=== PATIENT | male | born 1950 | race Caucasian/White ===

== ENCOUNTER 2020-05-14 08:11 | Observation (INO) ==
--- NOTE | 2020-05-06 15:00 | PAT Medication Instructions ---
Medication Instructions Date of Service May 06, 2020 Home Medications albuterol 90 mcg INHALATION UD PRN alprazolam 0.5 mg PO HS aspirin [Aspir-Low] 81 mg PO QAM cholecalciferol (vitamin D3) [Vitamin D3] 25 mcg PO QAM diphenhydramine HCl [Sleep Aid (diphenhydramine)] 50 mg PO HS famotidine 20 mg PO HS fish,bora,flax oils-om3,6,9no1 [[place] 3-6-9] 1 cap PO DAILY garlic 500 mg PO DAILY glucosamine HCl 1,500 mg PO DAILY hydrochlorothiazide 12.5 mg PO QAM losartan 50 mg PO QAM melatonin 5 mg PO HS meloxicam 15 mg PO QAM montelukast 10 mg PO QAM potassium 99 mg PO QAM turmeric 500 mg PO DAILY ASK your surgeon for instructions meloxicam 15 mg PO QAM STOP taking 2 weeks before surgery If surgery is within 2 weeks, stop taking as soon as possible. fish,bora,flax oils-om3,6,9no1 [[place] 3-6-9] 1 cap PO DAILY garlic 500 mg PO DAILY glucosamine HCl 1,500 mg PO DAILY turmeric 500 mg PO DAILY DO NOT take the morning of surgery cholecalciferol (vitamin D3) 25 mcg PO QAM hydrochlorothiazide 12.5 mg PO QAM losartan 50 mg PO QAM montelukast 10 mg PO QAM potassium 99 mg PO QAM Take morning of surgery With a small sip of water, OTHERWISE NOTHING TO EAT OR DRINK AFTER MIDNIGHT: albuterol 90 mcg INHALATION UD PRN (if needed, and please bring with you to the hospital) aspirin [Aspir-Low] 81 mg PO QAM Take evening before surgery albuterol 90 mcg INHALATION UD PRN (if needed) alprazolam 0.5 mg PO HS diphenhydramine HCl [Sleep Aid (diphenhydramine)] 50 mg PO HS famotidine 20 mg PO HS melatonin 5 mg PO HS Other Notes If you have any questions please call us at [phone] or [phone] or [phone] or [phone]
--- NOTE | 2020-05-07 10:35 | Anesthesiology Consultation ---
Date of Service May 07, 2020 Assessment & Plan (1) Encounter for pre-operative examination: COVID Status: As of 05/07 assessment, patient denies travel to endemic area, known exposure/sick contacts, or symptoms of COVID19. Patient instructed that they and their household members must follow strict social distancing guidelines, wear a mask in public and avoid travel for 14 days prior to surgery. Preoperative COVID19 testing to be completed prior to surgery per surgeon's arra ngpee [place] [facility] [place] Patient made aware to self-isolate as much as possible between COVID testing and surgery. Chart Review Chart Review: Acceptable Risk for Surgery and Patient seen in Pre Admission Testing Teaching & Discussion Instructed NPO after midnight before surgery, except medications with 15 cc of water. Medication instructions provided according to the PAT guidelines. History Surgery Operation Date: 05/14/20 08:50 Proposed Procedures p Left Anterior Total Hip Arthroplasty - Jeff Beckman, Height/Weight Height: 5 ft 11 in Weight: 125.2 kg Allergies Allergy/AdvReac Type Severity Reaction Status Date / Time ampicillin Allergy Unknown AT [facility] Verified 04/29/20 15:23 AGE - RASH / BLISTERS Medications Home Medications Medication Instructions Recorded Confirmed Last Taken albuterol 90 mcg INHALATION UD PRN 04/29/20 04/29/20 Unknown alprazolam 0.5 mg PO HS 04/29/20 04/29/20 Unknown aspirin [Aspir-Low] 81 mg PO QAM 04/29/20 04/29/20 Unknown cholecalciferol (vitamin D3) 25 mcg PO QAM 04/29/20 04/29/20 Unknown [Vitamin D3] diphenhydramine HCl [Sleep Aid 50 mg PO HS 04/29/20 04/29/20 Unknown (diphenhydramine)] famotidine 20 mg PO HS 04/29/20 04/29/20 Unknown fish,bora,flax oils-om3,6,9no1 1 cap PO DAILY 04/29/20 04/29/20 Unknown [[place] 3-6-9] garlic 500 mg PO DAILY 04/29/20 04/29/20 Unknown glucosamine HCl 1,500 mg PO DAILY 04/29/20 04/29/20 Unknown hydrochlorothiazide 12.5 mg PO QAM 04/29/20 04/29/20 Unknown losartan 50 mg PO QAM 04/29/20 04/29/20 Unknown melatonin 5 mg PO HS 04/29/20 04/29/20 Unknown meloxicam 15 mg PO QAM 04/29/20 04/29/20 Unknown montelukast 10 mg PO QAM 04/29/20 04/29/20 Unknown potassium 99 mg PO QAM 04/29/20 04/29/20 Unknown turmeric 500 mg PO DAILY 04/29/20 04/29/20 Unknown Past Medical History Medical History (Updated 05/07/20 @ 15:44 by Mao Remy) Acid reflux Mostly controlled Asthma NO DAILY INHALER. LAST USE PRN INHALER 4-5 DAYS AGO - AVERAGE USE 3-4X PER MONTH Environmental allergies HAY FEVER/NO PROBLEM CURRENTLY History of skin cancer REMOVED HTN (hypertension) Osteoarthritis Snores NO HX SLEEP STUDY Urinary frequency IMPROVING., PCP MONITORING Exercise / Class Metabolic Activity II 4-5 Yardwork/Stairs/Walk up hill (Denies CP or SOB with 1 FOS) Past Family History Family History Other Family history of diabetes mellitus in daughter Past Surgical History Surgical History History of arthroscopy of left knee History of arthroscopy of right knee History of colonoscopy History of endoscopy History of toe surgery L GREAT TOE PLATE /SCREWS Past Anesthesia History No Hx of Anesthesia Complications and No Family Hx of Anesthesia Complications History of PONV No Hx of PONV and No Hx of Motion Sickness Social History Smoking Status: Former smoker tobacco type: cigars Do You Dip or Chew Tobacco: No (HX OF, NONE CURRENT) Smoking End Date: HX OF CIGARS OFF AND ON - NONE FOR 10 YRS Hx Alcohol Use: Yes Alcohol type: beer alcohol intake frequency: a few times a month substance use type: does not use Review of Systems Pt denies any recent chest pain, shortness of breath, palpitations, cough, fever, URI, or uncontrolled acid reflux. Physical Exam Vital Signs BP: 162/85 (PCP monitoring, pt is on 2 BP meds) P: 68bpm SPO2: 97% RA T: 97.7 F R: 16 ENMT Mouth: no dental restorations, no chipped teeth and no loose teeth Thyromental Distance: > or= 3.5 Finger Breadths Mallampati Class: I Neck normal visual inspection and + facial hair (very short perea and mustache); neck extension not limited Respiratory normal respiratory effort Auscultation: lungs clear to auscultation bilaterally Cardiovascular Rate/Rhythm: regular rate and regular rhythm Heart Sounds: no murmur Vessels: no carotid bruit Testing Laboratory Results PT 11.4 Seconds (9.0-12.0) 05/07/20 10:50 INR 1.1 (0.9-1.1) 05/07/20 10:50 APTT 27.2 Seconds (21.0-31.0) 05/07/20 10:50 Blood Type O Negative 05/07/20 10:50 Antibody Screen NEGATIVE 05/07/20 10:50 04/28/20 WBC: 5.48 H/H: 15.2/43.9 PLATELETS: 238 SODIUM: 140 POTASSIUM: 3.8 CHLORIDE: 108 CO2: 28 BUN: 26.8 CREATININE: 0.96 GLUCOSE: 122 Electrocardiogram Date: 05/07/20 Findings: + NSR @ (62bpm) Left axis deviation. iRBBB. Minimal voltage criteria for LVH, may be normal variant. Chest X-Ray Date: 05/07/20 Findings: + NAD There is minor basilar atelectasis.
--- NOTE | 2020-05-07 11:18 | XRay Report ---
XR chest Pre-admission PA/Lat CLINICAL HISTORY: Preoperative chest COMPARISON STUDY: No previous studies for comparison. FINDINGS: The heart is the upper limits of normal in size. There is mild aortic tortuosity/ectasia. T here is no failure. There is no focal pulmonary consolidation. Degenerative changes are present withi n the dorsal spine.[There is minor basilar atelectasis. IMPRESSION: No active disease in the chest. ACT 112: Negative or not required by law. Electronically signed by: Abrahan Silveira M.D. 05/07/2020 11:16 AM
[2020-05-07 12:19] LABS: INR 1.1 (0.9-1.1); Partial Thromboplastin Time 27.2 Seconds (21.0-31.0); Prothrombin Time 11.4 Seconds (9.0-12.0)
--- NOTE | 2020-05-07 12:49 | Electrocardiogram Report ---
Test Reason : Blood Pressure : / mmHG Vent. Rate : 062 BPM Atrial Rate : 062 BPM P-R Int : 148 ms QRS Dur : 112 ms QT Int : 444 ms P-R-T Axes : 015 -39 -04 degrees QTc Int : 450 ms Normal sinus rhythm Left axis deviation Incomplete right bundle branch block Minimal voltage criteria for LVH, may be normal variant Abnormal ECG No previous ECGs available Confirmed by Mansoor Jacobs ([id number]) on 05/07/2020 12:49:08 PM Referred By: Jeff Beckman Confirmed By:Marcello Jacobs
--- NOTE | 2020-05-13 20:34 | History & Physical Report ---
Date of Service May 13, 2020 Assessment & Plan (1) Osteoarthritis of left hip: We will proceed with a left anterior total hip arthroplasty. Postoperatively he will be placed on aspirin for DVT prophylaxis and kept overnight in the hospital for postoperative medical management. He plans to use energy physical therapy upon discharge. Present on Admission?: Yes History of Present Illness Chief Complaint: Primary osteoarthritis of the left hip Primary Care Provider: Rajeev Gomez is a pleasant 69-year-old male who is been dealing with a 6-month history of increasing left hip and groin pain. It hurts him every time he walks. He is really struggling with his left hip. X-rays and clinical examination have been diagnostic for advanced osteoarthritis of the left hip. After failing conservative treatment, he has elected to proceed with a left anterior total hip arthroplasty. Allergies Allergy/AdvReac Type Severity Reaction Status Date / Time ampicillin Allergy Unknown AT [facility] Verified 04/29/20 15:23 AGE - RASH / BLISTERS Home Medications Home Medications Medication Instructions Recorded Confirmed Type albuterol 90 mcg INHALATION UD PRN 04/29/20 04/29/20 History alprazolam 0.5 mg PO HS 04/29/20 04/29/20 History aspirin [Aspir-Low] 81 mg PO QAM 04/29/20 04/29/20 History cholecalciferol (vitamin D3) 25 mcg PO QAM 04/29/20 04/29/20 History [Vitamin D3] diphenhydramine HCl [Sleep Aid 50 mg PO HS 04/29/20 04/29/20 History (diphenhydramine)] famotidine 20 mg PO HS 04/29/20 04/29/20 History fish,bora,flax oils-om3,6,9no1 1 cap PO DAILY 04/29/20 04/29/20 History [[place] 3-6-9] garlic 500 mg PO DAILY 04/29/20 04/29/20 History glucosamine HCl 1,500 mg PO DAILY 04/29/20 04/29/20 History hydrochlorothiazide 12.5 mg PO QAM 04/29/20 04/29/20 History losartan 50 mg PO QAM 04/29/20 04/29/20 History melatonin 5 mg PO HS 04/29/20 04/29/20 History meloxicam 15 mg PO QAM 04/29/20 04/29/20 History montelukast 10 mg PO QAM 04/29/20 04/29/20 History potassium 99 mg PO QAM 04/29/20 04/29/20 History turmeric 500 mg PO DAILY 04/29/20 04/29/20 History Past Med/Surg History Medical History Acid reflux Mostly controlled Asthma NO DAILY INHALER. LAST USE PRN INHALER 4-5 DAYS AGO - AVERAGE USE 3-4X PER MONTH Environmental allergies HAY FEVER/NO PROBLEM CURRENTLY History of skin cancer REMOVED HTN (hypertension) Osteoarthritis Snores NO HX SLEEP STUDY Urinary frequency IMPROVING., PCP MONITORING Surgical History History of arthroscopy of left knee History of arthroscopy of right knee History of colonoscopy History of endoscopy History of toe surgery L GREAT TOE PLATE /SCREWS Family History Other Family history of diabetes mellitus in daughter Social History Smoking Status: Former smoker Hx Alcohol Use: Yes Alcohol type: beer Preferred Language: Uzbek Communication Ability: Effective Circular Tank Cooper Required: No Beliefs That Will Affect Care: None Current Living Situation: Spouse Feels Safe at Home: Yes Assistive Devices: Glasses Review of Systems Review of Systems: All systems reviewed & are unremarkable except as noted in HPI & below Physical Exam Constitutional: WD/WN, vitals as above Eyes: PERRL, conjunctivae normal, anicteric sclerae ENMT: external ear and nose normal, oropharynx normal Neck: trachea midline, no thyromegaly Respiratory: normal respiratory effort Cardiovascular: RRR, no murmur, no edema Gastrointestinal (Abdomen): normal bowel sounds, soft, nontender, no hepatosplenomegaly Musculoskeletal: Physical examination of the left hip reveals decreased range of motion with flexion, internal and external rotation. There is significant groin pain with forced internal rotation of the hip his leg lengths are essentially equal. Psychiatric: A+Ox3, euthymic affect Results & Data Results & Data ([facility]) Diagnostic Findings Radiographs of the left hip and pelvis demonstrate advanced osteoarthritis with joint space narrowing osteophyte formation and [id number] articulation. PG Care Time/CCT Total # of Minutes Spent Total Time Spent with Patient: Total time spent is greater than 50% in coordination of care (as documented) at patient's floor/unit and/or counseling patient: Coding Level of Care Code None Diagnoses Osteoarthritis of left hip M16.12
[~2020-05-14 08:11] MED LIST: *ANCEF*ALLERGY NOTED TO ORDERED MEDICATION SCH; ACETAMINOPHEN 500 MG TAB PO SCH; BUPIVACAINE 0.5 % 5 MG/1 ML PF 10ML VIAL ONE; FAMOTIDINE 20 MG TAB PO SCH; GABAPENTIN 300 MG CAP PO SCH; LR 500ML BOLUS, THEN 15ML/HR IV SCH; LR 60ML/HR IV SCH; ROPIVACAINE 0.5% HCL/PF 150 MG, BUPIVACAINE 0.5% MPF 30 ML, EPINEPHrine 30MG/30ML (OR U... INSTIL SCH; TRANEXAMIC ACID 1,000 MG **IV Intra-op IV SCH; TRANEXAMIC ACID 1,000 MG **IV Pre-op IV SCH; ceFAZolin 2000MG 2,000 MG/15 ML SYR IV SCH; dexAMETHasone 4 MG TAB PO SCH
--- NOTE | 2020-05-14 08:18 | History & Physical Bridge Note ---
Date of Service May 14, 2020 History & Physical Bridge Note I have examined the patient, reviewed the History & Physical and in the interval since the performance of the History & Physical I have noted the following changes of clinical significance: no changes noted
[2020-05-14] MEDS ORDERED: PROPOFOL IV EMULSION 10 MG/ML 20 ML VIAL IV ONE (08:28)
[2020-05-14] MEDS ORDERED: LIDOCAINE HCL 2% 2 ML VIAL/AMP(20MG/ML) INFIL ONE ×2 (08:28→10:42)
[2020-05-14] MEDS ORDERED: MIDAZOLAM HCL 1 MG/ML 2ML VIAL ONE ×2 (08:28→10:16)
[2020-05-14] MEDS ORDERED: ePHEDrine sulfate 50 MG/ML AMP IV PRN (09:20)
[2020-05-14] MEDS ORDERED: fentaNYL citrate 100 MCG/2 ML VIAL IV PRN (09:20)
[2020-05-14] MEDS ORDERED: ONDANSETRON INJ 2 MG/ML 2 ML VIAL IV PRN ×2 (09:20→12:53)
[2020-05-14] MEDS ORDERED: ATROPINE SULFATE 0.1 MG/ML 10ML SYR IV PRN (09:20)
[2020-05-14] MEDS ORDERED: ORTHO JOINT ANESTHETIC ONE (09:49)
--- NOTE | 2020-05-14 11:37 | Operative Report ---
PG Post Operative Report Pre & Post Diagnosis Operation Date: 05/14/20 10:40 Pre-Op Diagnosis: Left Hip Degenerative Joint Disease Post-Op Diagnosis: Left Hip Degenerative Joint Disease I identified the patient and participated in the time-out.: Yes Procedure Operation Date: 05/14/20 10:40 Actual Procedures p Left Anterior Total Hip Arthroplasty, Uncemented(Left) - Jeff Beckman DO Surgeon Jeff Beckman, Under Cutting Machine Operator Jeff Barth PAC Estimated Blood Loss 450 Findings Consistent with Post-Op Diagnosis Specimens Left femoral head Complications none Disposition Disposition: Recovery Room Indications Sumanth is a pleasant 69-year-old male who presented my office with chronic increasing left hip and groin pain. X-rays and clinical examination were diagnostic for advanced osteoarthritis of the left hip. After failing conservative treatment, he elected proceed with a left total hip arthroplasty. Description of Procedure Implants used I used a Biomet Taperloc total hip arthroplasty system with a size 15 high offset Taperloc stem, a 58 mm G7 cup with a 25mm screw, an E1 polyethylene liner, a 40 mm ceramic head with a +3 neck. Sumanth arrived at the hospital for the above procedure. He was seen in the preoperative holding area and the operative extremity was identified and signed. He was given a spinal anesthetic, a preoperative antibiotic, and TXA. He was then taken back to the operating room and laid on the table in the supine position. He was given basic sedation. The operative leg was secured to a Puristst leg positioner. The hip was then prepped and draped in sterile fashion. A timeout was done and the patient and the operative extremity was properly identified. An anterior approach was used. Dissection was taken down through the fascia and the tensor muscle belly was retracted laterally and the rectus was retracted medially. The circumflex vessels were identified and ligated. The capsule was then incised and tagged for later repair. The femoral neck was then cut and the femoral head was removed. The acetabulum was exposed. Time was spent doing a complete circumferential labral release. Sequential reaming of the acetabulum up to a size 57 reamer was done. Final reamings were done under fluoroscopy to ensure appropriate version. A Biomet 58 mm G7 cup was then impacted into place. A single 25 mm screw was placed. The E1 polyethylene liner was then snapped into place. Surrounding soft tissues were then injected with 100 cc of an orthopedic pain control cocktail. The proximal femur was then exposed. Sequential broaching up to a size 15 broach was done. Off that broach a size 40 head with a +3 neck was trialed. The hip was reduced and fluoroscopic images showed anatomic alignment of the implants in acceptable length. The broach was removed. The final size 15 high offset Taperloc stem was then impacted into place. A ceramic 40 mm head with a +3 neck was then impacted onto the stem and the hip was reduced. Final fluoroscopic images showed anatomic alignment of the hip. The capsule was then closed with #1 Vicryl suture. A dilute betadyne lavage was then done for 3 minutes. The joint was then irrigated with normal saline solution. The fascia was closed with #1 PDS suture. Skin was closed with 2-0 Vicryl, jamison, and a Silverlon dressing. He was then transferred to a hospital bed and taken to the post anesthesia care unit in stable condition. He tolerated the procedure well. Jeff Barth PA-C, was present for the entire procedure. He was critical for patient positioning, prepping, draping, retraction exposure, wound closure and application of sterile dressing. I attest to the content of the Intraoperative Record and any orders documented therein. Any exceptions are noted below.
--- NOTE | 2020-05-14 11:47 | Fluoroscopy Report ---
FL hip LT 1V CLINICAL HISTORY: LEFT ANTERIOR HIP COMPARISON STUDY: None. FLUOROSCOPY TIME: 34 seconds. FINDINGS: 2 fluoroscopic spot images of the left hip demonstrate a left total arthroplasty. The hardw are is intact no fracture or dislocation. IMPRESSION: Status post left total hip arthroplasty. ACT 112: Negative or not required by law. Electronically signed by: Ed Mello M.D. 05/14/2020 11:46 AM
[2020-05-14] MEDS ORDERED: HYDROmorphone INJ 0.5 MG/0.5 ML SYR IV PRN (12:53)
[2020-05-14] MEDS ORDERED: MAGNESIUM HYDROXIDE SUSP 30 ML UDC PO PRN (12:53)
[2020-05-14] MEDS ORDERED: oxyCODONE HCL IR 5 MG TAB (IMMEDIATE RELEASE) PO PRN (12:53)
[2020-05-14] MEDS ORDERED: bisacodyL 10 MG SUPP PR PRN (12:53)
[2020-05-14] MEDS ORDERED: METOCLOPRAMIDE HCL INJ 5 MG/ML 2 ML VIAL IV PRN (12:53)
[2020-05-14] MEDS ORDERED: NALOXONE HCL 0.4 MG/1 ML VIAL/CARP IV PRN (12:53)
[2020-05-14] MEDS ORDERED: SODIUM CHLORIDE 0.9% 1000ML 1,000 ML IV SCH (12:53)
[2020-05-14] MEDS ORDERED: ALBUTEROL HFA 8 GM INHALER INH PRN (13:00)
--- NOTE | 2020-05-14 13:52 | XRay Report ---
XR hip 1V LT w pelvis CLINICAL HISTORY: Postoperative evaluation. COMPARISON: None FINDINGS: Alignment of the total left hip arthroplasty is anatomic. There is no periprosthetic fract ure or unexpected radiopaque foreign body. There is an acetabular screw. There are skin jamison. IMPRESSION: Expected findings following total left hip arthroplasty. ACT 112: Negative or not required by law. Electronically signed by: Aj Grande M.D. 05/14/2020 1:51 PM
--- NOTE | 2020-05-14 14:05 | Anesthesiology Progress Note ---
Date of Service May 14, 2020 Anesthesia Post Procedure Vital Signs Vital Signs: Temp Pulse Pulse Resp BP BP Pulse Ox 05/14/20 13:45 36.6 C 64 18 124/76 97 05/14/20 13:17 36.3 C L 58 L 15 112/70 98 05/14/20 12:45 36.3 C L 58 L 18 113/68 98 05/14/20 12:30 36.5 C 57 L 12 104/88 97 05/14/20 12:20 59 L 12 110/65 99 05/14/20 12:10 60 13 112/51 L 100 05/14/20 12:00 36.6 C 69 17 97/57 L 97 05/14/20 08:50 174/87 H 05/14/20 08:35 36.7 C 77 20 179/102 H 97 Pain Intensity Left Hip: Pain Intensity: 2 Transfer of Care Handoff Completed per policy Notes Mental Status: alert / awake / arousable and participated in evaluation Patient Amnestic to Procedure: No Nausea / Vomiting: adequately controlled Pain: adequately controlled Airway Patency, RR, SpO2: stable & adequate BP & HR: stable & adequate Hydration State: stable & adequate Neuraxial Anesthesia: was administered and sensory block is resolving Anesthetic Complications: no major complications apparent and Pt Satisfied with anesthetic care
[2020-05-14] MEDS: ACETAMINOPHEN 500 MG TAB PO SCH ×2 (14:18→22:00)
[2020-05-14] MEDS: KETOROLAC 30 MG/ML VIAL IV SCH ×2 (14:18→20:06)
[2020-05-14] MEDS: ceFAZolin 2000MG 2,000 MG/15 ML SYR IV SCH (18:02)
[2020-05-14] MEDS: ASPIRIN 81 MG ECTAB PO SCH (20:07)
[2020-05-14] MEDS: DOCUSATE SODIUM 100 MG CAP PO SCH (20:08)
[2020-05-14] MEDS ORDERED: diphenhydrAMINE Capsule 25 MG CAP PO PRN (21:00)
[2020-05-14] MEDS ORDERED: FAMOTIDINE 20 MG TAB PO SCH (21:00)
[2020-05-14] MEDS ORDERED: ALPRAZolam 0.5 MG TABLET PO SCH (21:00)
[2020-05-14] MEDS ORDERED: SENNA 8.6 MG TAB PO SCH (21:00)
[2020-05-15] MEDS: KETOROLAC 30 MG/ML VIAL IV SCH ×2 (02:41→08:17)
[2020-05-15] MEDS: ceFAZolin 2000MG 2,000 MG/15 ML SYR IV SCH (02:42)
[2020-05-15 05:57] LABS: Basophils # (auto) 0.01 K/uL (0-0.2); Basophils % (auto) 0.1 %; Hematocrit (blood only) 36.1 % (42-52); Hemoglobin 12.5 g/dL (14.0-18.0); Immature Granulocytes # (auto) 0.02 K/uL (0.00-0.02); Immature Granulocytes % (auto) 0.1 %; Lymphocytes # (auto) 1.91 K/uL (1.2-3.4); Lymphocytes % (auto) 13.3 %; Mean Corpuscular Hemoglobin 33.2 pg (25-34); Mean Corpuscular Hgb Conc 34.6 g/dL (32-36); Mean Platelet Volume 9.3 fL (7.4-10.4); Monocytes # (auto) 1.29 K/uL (0.11-0.59); Neutrophils # (auto) 11.09 K/uL (1.4-6.5); Neutrophils % (auto) 77.5 %; Platelet Count 224 K/uL (130-400); RDW Coefficient of Variation 12.8 % (11.5-14.5); RDW Standard Deviation 43.4 fL (36.4-46.3); Red Blood Count 3.76 M/uL (4.7-6.1); White Blood Count 14.32 K/uL (4.8-10.8)
[2020-05-15] MEDS: ACETAMINOPHEN 500 MG TAB PO SCH (06:20)
[2020-05-15 06:27] LABS: BUN Creatinine Ratio 27.5 (10-20); Calcium 8.5 mg/dl (8.5-10.1); Creatinine Clr Calc Pharmacy 93.1 ml/min; Est GFR (African American) 88.6; Est GFR (Non-African American) 76.5; Potassium 4.2 mmol/L (3.5-5.1)
[2020-05-15] MEDS ORDERED: dexAMETHasone 4 MG TAB PO SCH (08:00)
[2020-05-15] MEDS: ASPIRIN 81 MG ECTAB PO SCH (08:16)
[2020-05-15] MEDS: DOCUSATE SODIUM 100 MG CAP PO SCH (08:17)
--- NOTE | 2020-05-15 08:44 | Orthopedic Progress Note ---
Date of Service May 15, 2020 Assessment & Plan (1) Status post left hip replacement: Overall he is doing very well. Is not having much pain in the left hip. He will be seen by physical therapy today for ambulation and range of motion exercises. He is on aspirin for DVT prophylaxis. He can be discharged home later today. He will follow-up with orthopedics in 2 weeks. Present on Admission?: No Admission and Anticipated Discharge Date Admission Date: May 14, 2020 Costa Gomez was seen and examined at bedside this morning. Overall he is doing very well. Is not having much pain in the left hip. He was able to ambulate around the nurses station last night. He has no complaints. Physical Exam Musculoskeletal: On physical examination of the left hip, the dressing has been reinforced. His leg lengths are equal. He has active dorsiflexion and plantarflexion of the left ankle. Sensation is intact throughout. Results & Data ([facility]) Vital Signs (Past 12 Hours) Vital Signs Temp Pulse Resp BP Pulse Ox 05/15/20 07:23 36.4 C L 73 18 167/84 H 98 05/15/20 03:44 36.6 C 74 20 128/75 95 05/14/20 23:27 36.5 C 77 20 154/84 H 95 Laboratory Results H & H 05/15/20 Range/Units 05:23 Hgb 12.5 L (14.0-18.0) g/dL Hct 36.1 L (42-52) % Coagulation 05/07/20 Range/Units 10:50 INR 1.1 (0.9-1.1) Diagnostic Findings Postoperative x-rays of the left hip show the prosthesis to be in anatomic alignment without any evidence of fracture, dislocation, or loosening. PG Care Time/CCT Total # of Minutes Spent Total Time Spent with Patient: Total time spent is greater than 50% in coordination of care (as documented) at patient's floor/unit and/or counseling patient: Coding Level of Care Code None Diagnoses Status post left hip replacement Z96.642
--- NOTE | 2020-05-15 08:46 | Discharge Summary ---
Date of Service May 15, 2020 Admission HPI Per Admitting Provider Jason is a pleasant 69-year-old male who is been dealing with a 6-month history of increasing left hip and groin pain. It hurts him every time he walks. He is really struggling with his left hip. X-rays and clinical examination have been diagnostic for advanced osteoarthritis of the left hip. After failing conservative treatment, he has elected to proceed with a left anterior total hip arthroplasty. Principal Diagnosis Left hip replacement Discharge Data Allergies Allergy/AdvReac Type Severity Reaction Status Date / Time ampicillin Allergy Unknown AT [facility] Verified 05/14/20 08:54 AGE - RASH / BLISTERS Consultations 05/15/20 08:00 Consult Case Management - Discharge Planning Routine Procedures Performed Operation Date: 05/14/20 10:40 Actual Procedures p Left Anterior Total Hip Arthroplasty, Uncemented(Left) - Jeff Beckman DO Ordered Studies 05/14/20 13:00 FL fluoroscopy <1hr Routine FL hip LT 1V Routine Hospital Course (1) Status post left hip replacement: On May 14, 2020 Sumanth arrived at [facility] and underwent a left hip replaced without complication. He had a spinal anesthetic. Postoperatively he was started on aspirin for DVT prophylaxis and transferred to the general orthopedic floors. His hospital course was uneventful. On postop day #1 his H&H was stable and his pain was well controlled. He was able to participate well with physical therapy doing ambulation and range of motion exercises. He was then discharged to home. He will follow-up with orthopedics in 2 weeks. Total Time Total Time Spent Total Time Spent (In Minutes): 20 Discharge Plan Discharge Items Patient Disposition: Home - Home Health Services Reason For Visit: Left Hip Degenerative Joint Disease Discharge Diagnosis: Left hip replacement Activity: As commented below Non-emergency contact: Surgeon Call non-emergency contact if: your wound has increased redness and your wound has increased drainage Follow-up/Referrals: Rajeev Harkins [Primary Care Provider] - Diet: Regular Addtl Attending Provider Instructions: Activity and Therapy Recommendations: * If you are using [facility] then therapy will be provided at your home until they feel you have accomplished all of your goals. * If you are using [facility] then Physical Therapy will be provided until they feel you are ready to start Outpatient Physical Therapy. * If you are not using home therapy then Outpatient Physical Therapy should start about 3-5 days from your day of surgery. Therapy will last about 6-10 weeks * You were shown a series of exercises in the hospital. Do these exercises three times each day including the exercises you were shown in physical therapy. * Get up and walk several times each day.~ For the first four weeks, try not to stand or walk for more than one hour at a time. If you do stand or walk for more than one hour, you will not hurt anything, but your leg will likely swell.~~ * As you feel comfortable, you may change from the walker or crutches to a cane and~then to independent walking. Medications: * Narcotic You will likely be sent home from the hospital with a prescription for the narcotic pain medication that worked best throughout your stay. * Aspirin Most patients will be required to take Aspirin 81mg twice a day for 6 weeks after surgery. This is obtained tpex-het-mbkyesh and a prescription is not necessary. * Other medications may be prescribed for specific circumstances. If you have any questions, please call the office at . * Resume previous home medications unless otherwise instructed TEDs/Elastic Stockings: The white elastic stockings help limit swelling and prevent blood clots from forming in your legs. The more you wear them, the more they work. Wear them for six weeks. Dressing Care: Leave the Silverlon dressing in place for 7 days. After 7 days you may remove the dressing. If the incision is not draining then you may leave the jamison open to air. If there is a little bit of drainage or if the jamison are getting stuck on your clothing then cover the incision with a dry dressing. The jamison will be removed at your 2 week follow-up appointment. Showering: You may shower with the Silverlon dressing in place. Do not let the shower spray hit the dressing directly. Pat the Silverlon dressing dry. If the dressing becomes wet underneath, then simply remove the dressing. Keep the incision dry until you are 7 days out from the day of surgery. After 7 days you may remove the Silverlon dressing and shower with the jamison exposed. Let soapy water run over the jamison and pat them dry. Do not scrub or soak the incision. Things To Watch For: * Drainage from the incision site that occurs more than one week after your surgery. * Increased redness at the incision site. * Fever above 102 degrees Fahrenheit. * Unusual chest pain or shortness of breath. * Call [facility] at with any of the above problems Follow-Up Visit: Follow-up with Dr. Beckman's PA (Jeff Barth) 2-3 weeks after your day of surgery. He will remove your jamison and answer any questions. If you have any additional questions or concerns, Dr Beckman is usually in the office at the same time and will be available An appointment was probably scheduled when you signed-up for surgery in the office. If you have any questions call Office Instructions: More detailed instructions as well as Frequently Asked Questions were provided in a folder by our office when you signed-up for surgery. Please review these instructions when you get home. If you have any further questions or concerns, please feel free to call the office at [phone] Pending Studies at Discharge: No Stand-Alone Forms: My [facility], Smoking Cessation Medications and DC Order Prescriptions: New oxycodone 5 mg Tablet 5 mg PO Q4H PRN (Reason: pain) Qty: 30 RF: 0 Continued losartan 50 mg Tablet 50 mg PO QAM RF: 0 meloxicam 15 mg Tablet 15 mg PO QAM RF: 0 alprazolam 0.5 mg Tablet 0.5 mg PO HS RF: 0 hydrochlorothiazide 12.5 mg Tablet 12.5 mg PO QAM RF: 0 glucosamine HCl 1,500 mg Tablet 1,500 mg PO DAILY RF: 0 [place] 3-6-9 1,200 mg Capsule 1 cap PO DAILY RF: 0 diphenhydramine HCl [Sleep Aid (diphenhydramine)] 50 mg Capsule 50 mg PO HS RF: 0 potassium 99 mg Tablet 99 mg PO QAM RF: 0 famotidine 20 mg Tablet 20 mg PO HS RF: 0 cholecalciferol (vitamin D3) [Vitamin D3] 25 mcg (1,000 unit) Tablet 25 mcg PO QAM RF: 0 melatonin 5 mg Tablet 5 mg PO HS RF: 0 turmeric 400 mg Capsule 500 mg PO DAILY RF: 0 montelukast 10 mg Tablet 10 mg PO QAM RF: 0 albuterol 90 mcg/actuation Aerosol 90 mcg INHALATION UD PRN (Reason: ASTHMA) RF: 0 garlic Capsule 500 mg PO DAILY RF: 0 Changed aspirin 81 mg Tablet,Delayed Release (Dr/Ec) 81 mg PO BID 42 Days Qty: 0 RF: 0 Discharge Orders: Discharge Order (Routine); Ordered 05/15/20 Ordered By: Jeff Beckman Admission Data Admit Date/Time: 05/14/20 12:00 Attending Provider: Jeff Beckman Admit Provider: Jeff Beckman Primary Care Provider: Rajeev Harkins Coding Level of Care Code D/C Day Management <30 mins Diagnoses Status post left hip replacement Z96.642
[2020-05-15] MEDS ORDERED: hydroCHLOROthiazide 25 MG TAB PO SCH (09:00)
[2020-05-15] MEDS ORDERED: LOSARTAN POTASSIUM 50 MG TAB PO SCH (09:00)
[2020-05-15] MEDS ORDERED: MULTIVITAMIN TAB PO SCH (09:00)
[2020-05-15] MEDS ORDERED: GLUCOSAMINE SULFATE 500 MG CAP PO SCH (09:00)
[2020-05-15] MEDS ORDERED: MONTELUKAST SODIUM 10 MG TABLET PO SCH (09:00)
[2020-05-15] MEDS ORDERED: NON-FORMULARY MEDICATION (Potassium 99 MG) PO SCH (09:00)
== END 2020-05-15 13:16 | disposition home health service (06) ==
LOC: 3E 08:11 → ASU 08:11

== ENCOUNTER 2020-05-19 12:32 | Inpatient (IN) ==
[2020-05-19] MEDS ORDERED: ALBUTEROL HFA 8 GM INHALER INH ONE (13:37)
[2020-05-19] MEDS ORDERED: SODIUM CHLORIDE 0.9% 1000ML 1,000 ML IV ONE (13:38)
--- NOTE | 2020-05-19 13:41 | Emergency Department Note ---
Impression & Plan Pulmonary embolism, Elevated troponin, Atrial fibrillation with rapid ventricular response, History of left hip replacement ED Provider Note NAME: MONI LA AGE: 69 SEX: M : 1950 ARRIVES VIA: Walk-In INFORMANT: Patient ED PROVIDER(S): Ivan Orta DO CHIEF COMPLAINT: Shortness of breath HPI: Patient is a 69-year-old male relatives left hip replaced by Dr. Beckman performed this past Sunday. He was discharged and doing well. Last night he started having a cough and shortness of breath. He denies any chest pain. No belly pain, nausea, vomiting or diarrhea. He notes he felt very hot last night but that has now resolved. He has not had no recorded fevers. No drainage or discharge from the incision site. No dysuria or urgency but admits to frequency over the past month. No other exacerbating or remitting factors. Been taking aspirin 81 mg daily. Has not been using compression stockings. ROS: See above HPI for pertinent positives & negatives. A total of 10 systems reviewed and were otherwise negative. PAST MEDICAL HISTORY:See Below PAST SURGICAL HISTORY:See Below FAMILY HISTORY:See Below SOCIAL HISTORY:See Below HOME MEDICATIONS:See Below ALLERGIES:See Below VITALS:See Below PHYSICAL EXAMINATION: GENERAL: Sitting up in bed, alert, well appearing, well nourished, no distress, non-toxic EYE EXAM: normal conjunctiva. OROPHARYNX: no exudate, no erythema, lips, buccal mucosa, and tongue normal and mucous membranes are moist NECK: supple, no nuchal rigidity, no adenopathy, non-tender LUNGS: Clear to auscultation. Normal chest wall mechanics HEART: no murmurs, S1 normal and S2 normal ABDOMEN: abdomen soft, non-tender, normo-active bowel sounds, no masses, no rebound or guarding. UPPER EXTREMITIES: upper extremities are grossly normal. LOWER EXTREMITIES: [place] in place with bandage over the left hip. No obvious drainage or discharge. No surrounding erythema with the exception of the start of the incision there is a 2 cm area of redness with the blister. DPs and PTs 2 out of 4. Gross sensation intact. Left calf is slightly larger than right. NEURO EXAM: Normal sensorium, cranial nerves II-XII grossly intact, normal speech, no gross weakness of arms, no gross weakness of legs. MEDICAL DECISION MAKING: Patient is a 69-year-old male who presents the ER status post left hip surgery for shortness of breath and a cough. He is 5 days postop. IV was established blood work was obtained. Left calf larger then right. Labs show no significant leukocytosis or anemia. INR was unremarkable. BMP with slightly elevated glucose. LFTs bilirubin was unremarkable. Troponin was detectable at 0.093. CT angio of his chest showed bilateral PEs with questionable infiltrates altho ugh I favor this is secondary to the clots. Discussed with Dr. Gray Cee. He believes that at this point heparin drip and bolus was appropriate with surgery 5 days ago. Patient was given a heparin bolus and placed on heparin drip. Patient after being evaluated by the hospitalist flipped into believed to be in atrial flutter with a heart rate of 149. Discussed with Dr. Jacobs from cardiology and he agrees with Cardizem drip and bolus. Patient was given a bolus of Cardizem and placed on a Cardizem drip. Heart rate trended down to the low 100s. Is clearly in atrial fib at this point. He was updated bedside. He was resting comfortably. Last blood pressure once 160. Heart rate was 110. Patient is not hypoxic. He is not hypotensive. Triage Nursing notes reviewed. Prior medical records reviewed Vital Signs: reviewed and remarkable for Tachy Differential diagnosis: Differential diagnoses includes but is not limited to pneumonia, bronchitis, COPD/Asthma exacerbation, pneumothorax, pulmonary embolism, congestive heart fa ilure, acute coronary syndrome ER treatment provided: See below Diagnostics interpreted by me: ECG: #1 Sinus rhythm rate 86 T wave inversion in lead III Left axis Normal QTC No PVCs EKG #2 Atrial tachycardia rate of [address] wave depressions throughout V2 through V6 in the high lateral leads Normal QTC Cardiac Monitoring: An order was placed for continuous cardiac monitoring. The monitor shows a rate of 110 with A. fib rhythm. Laboratory studies: As stated above and show below. Imaging studies: CT angio of the chest shows bilateral PEs Consultation(s): Discussed with Dr. Llamas for admission Discussed with Rashawn Silva in regards to bilateral PEs with an elevated troponin and now atrial flutter which I favor is most likely with a heart rate of 149. He agrees with Cardizem drip and bolus. ED COURSE: Procedures: none Critical Care: I have personally spent 80 minutes of critical care time in the direct management of this patient. This includes bedside care, interpretation of diagnostic studies, and testing, discussion with consultants, patient, and family members, and other required patient management activities. This 80 m inutes is in excess of all separately billable procedures. Past Med/Surg History Medical History (Updated 05/19/20 @ 17:48 by Ivan Orta DO) Acid reflux Mostly controlled Asthma NO DAILY INHALER. LAST USE PRN INHALER 4-5 DAYS AGO - AVERAGE USE 3-4X PER MONTH Environmental allergies HAY FEVER/NO PROBLEM CURRENTLY History of skin cancer REMOVED HTN (hypertension) Osteoarthritis Snores NO HX SLEEP STUDY Urinary frequency IMPROVING., PCP MONITORING Surgical History (Updated 05/19/20 @ 17:48 by Ivan Orta DO) History of arthroscopy of left knee History of arthroscopy of right knee History of colonoscopy History of endoscopy History of toe surgery L GREAT TOE PLATE /SCREWS Status post left hip replacement (~04/2020) Family History Other Family history of diabetes mellitus in daughter Social History Smoking Status: Never smoker Hx Alcohol Use: Yes Alcohol type: beer Preferred Language: Faroese Communication Ability: Effective Power [employer]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 Beliefs That Will Affect Care: None marital status: Current Living Situation: Spouse Feels Safe at Home: Yes Assistive Devices: Walker Allergies Allergies Allergy/AdvReac Type Severity Reaction Status Date / Time ampicillin Allergy Unknown AT [facility] Verified 05/19/20 15:15 AGE - RASH / BLISTERS Home Meds Home Medications Medication Instructions Recorded Confirmed [place] 3-6-9 1 cap PO DAILY 04/29/20 05/19/20 alprazolam 0.5 mg PO HS 04/29/20 05/19/20 cholecalciferol (vitamin D3) 25 mcg PO QAM 04/29/20 05/19/20 [Vitamin D3] diphenhydramine HCl [Sleep Aid 50 mg PO HS 04/29/20 05/19/20 (diphenhydramine)] famotidine 20 mg PO HS 04/29/20 05/19/20 glucosamine HCl 1,500 mg PO DAILY 04/29/20 05/19/20 hydrochlorothiazide 12.5 mg PO QAM 04/29/20 05/19/20 losartan 50 mg PO QAM 04/29/20 05/19/20 melatonin 5 mg PO HS 04/29/20 05/19/20 meloxicam 15 mg PO QAM 04/29/20 05/19/20 montelukast 10 mg PO QAM 04/29/20 05/19/20 turmeric 500 mg PO DAILY 04/29/20 05/19/20 albuterol sulfate 2 puff INHALATION DIRECTED PRN 05/19/20 05/19/20 garlic 500 mg PO DAILY 05/19/20 05/19/20 potassium gluconate 600 mg PO DAILY 05/19/20 05/19/20 Previous Rx's Medication Instructions Recorded aspirin 81 mg PO BID 42 Days #0 tab 05/15/20 oxycodone 5 mg PO Q4H PRN #30 tab 05/15/20 Results & Data (ED) Vital Signs Vital Signs - 24 hr 05/19/20 12:32 05/19/20 12:41 05/19/20 14:28 Temperature 36.5 C Temperature Source Oral Pulse Rate 98 H 84 Pulse Rate from SpO2 Sensor Respiratory Rate 22 18 Respiratory Effort / Characteristics Non-Labored Spontaneous Respiratory Depth Normal Blood Pressure 101/58 L Blood Pressure Mean 72 Blood Pressure Position Sitting Pulse Oximetry 95 96 93 Oxygen Delivery Method Room Air Room Air Room Air Sepsis Recent Fever Within 48 Hours No Sepsis New/Unexplained Change in Mental Status No Sepsis Action Taken by Nursing No Action Required 05/19/20 15:02 05/19/20 15:03 05/19/20 15:10 Temperature Temperature Source Pulse Rate 86 86 82 Pulse Rate from SpO2 Sensor 86 86 82 Respiratory Rate 21 20 13 Respiratory Effort / Characteristics Respiratory Depth Blood Pressure 176/78 H Blood Pressure Mean 107 Blood Pressure Position Pulse Oximetry 97 96 95 Oxygen Delivery Method Room Air Sepsis Recent Fever Within 48 Hours Sepsis New/Unexplained Change in Mental Status Sepsis Action Taken by Nursing 05/19/20 15:20 05/19/20 15:30 05/19/20 15:40 Temperature Temperature Source Pulse Rate 84 85 82 Pulse Rate from SpO2 Sensor 84 85 83 Respiratory Rate 19 20 19 Respiratory Effort / Characteristics Respiratory Depth Blood Pressure 164/73 H Blood Pressure Mean 125 Blood Pressure Position Pulse Oximetry 96 92 92 Oxygen Delivery Method Sepsis Recent Fever Within 48 Hours Sepsis New/Unexplained Change in Mental Status Sepsis Action Taken by Nursing 05/19/20 15:50 05/19/20 16:00 05/19/20 16:10 Temperature Temperature Source Pulse Rate 82 80 81 Pulse Rate from SpO2 Sensor 82 81 81 Respiratory Rate 20 19 21 Respiratory Effort / Characteristics Respiratory Depth Blood Pressure 165/80 H Blood Pressure Mean 99 Blood Pressure Position Pulse Oximetry 93 95 97 Oxygen Delivery Method Sepsis Recent Fever Within 48 Hours Sepsis New/Unexplained Change in Mental Status Sepsis Action Taken by Nursing 05/19/20 16:20 05/19/20 16:30 05/19/20 16:40 Temperature Temperature Source Pulse Rate 85 84 86 Pulse Rate from SpO2 Sensor 85 85 83 Respiratory Rate 21 19 23 Respiratory Effort / Characteristics Respiratory Depth Blood Pressure 180/86 H Blood Pressure Mean 126 Blood Pressure Position Pulse Oximetry 95 94 95 Oxygen Delivery Method Sepsis Recent Fever Within 48 Hours Sepsis New/Unexplained Change in Mental Status Sepsis Action Taken by Nursing 05/19/20 16:50 05/19/20 17:00 05/19/20 17:01 Temperature Temperature Source Pulse Rate 94 H 101 H 99 H Pulse Rate from SpO2 Sensor 79 58 L 82 Respiratory Rate 20 26 H 17 Respiratory Effort / Characteristics Respiratory Depth Blood Pressure 214/70 H Blood Pressure Mean 108 Blood Pressure Position Pulse Oximetry 92 92 91 Oxygen Delivery Method Sepsis Recent Fever Within 48 Hours Sepsis New/Unexplained Change in Mental Status Sepsis Action Taken by Nursing 05/19/20 17:09 05/19/20 17:11 05/19/20 17:20 Temperature Temperature Source Pulse Rate 149 H 150 H 140 H Pulse Rate from SpO2 Sensor 150 H 151 H 130 H Respiratory Rate 18 21 20 Respiratory Effort / Characteristics Respiratory Depth Blood Pressure 152/92 H Blood Pressure Mean 108 Blood Pressure Position Pulse Oximetry 93 94 94 Oxygen Delivery Method Sepsis Recent Fever Within 48 Hours Sepsis New/Unexplained Change in Mental Status Sepsis Action Taken by Nursing 05/19/20 17:30 Temperature Temperature Source Pulse Rate 110 H Pulse Rate from SpO2 Sensor Respiratory Rate 21 Respiratory Effort / Characteristics Respiratory Depth Blood Pressure 165/80 H Blood Pressure Mean 112 Blood Pressure Position Pulse Oximetry Oxygen Delivery Method Sepsis Recent Fever Within 48 Hours Sepsis New/Unexplained Change in Mental Status Sepsis Action Taken by Nursing Laboratory Data Result diagrams: 05/19/20 14:20 05/19/20 14:20 Lab Results 05/19/20 05/19/20 05/19/20 Range/Units 14:20 14:20 14:20 WBC 7.17 (4.8-10.8) K/uL RBC 4.09 L (4.7-6.1) M/uL Hgb 13.1 L (14.0-18.0) g/dL POC Hgb (14.0-18.0) g/dl Hct 38.7 L (42-52) % POC Hct (42-52) % MCV 94.6 (80-100) fL MCH 32.0 (25-34) pg MCHC 33.9 (32-36) g/dL RDW Std Deviation 43.0 (36.4-46.3) fL RDW Coeff of Joe 12.5 (11.5-14.5) % Plt Count 266 (130-400) K/uL MPV 9.2 (7.4-10.4) fL Immature Gran % (Auto) 0.6 % Neut % (Auto) 73.4 % Lymph % (Auto) 14.6 % Eagle % (Auto) 10.6 % Eos % (Auto) 0.7 % Baso % (Auto) 0.1 % Neut # (Auto) 5.26 (1.4-6.5) K/uL Lymph # (Auto) 1.05 L (1.2-3.4) K/uL Eagle # (Auto) 0.76 H (0.11-0.59) K/uL Eos # (Auto) 0.05 (0-0.5) K/uL Baso # (Auto) 0.01 (0-0.2) K/uL Immature Gran # (Auto) 0.04 H (0.00-0.02) K/uL PT 11.4 (9.0-12.0) Seconds INR 1.1 (0.9-1.1) APTT 26.2 (21.0-31.0) Seconds PTT Ratio 0.9 POC Sodium (135-144) mmol/L Sodium 136 (136-145) mmol/L POC Potassium (3.3-5.0) mmol/L Potassium 4.6 (3.5-5.1) mmol/L POC Chloride (101-112) mmol/L Chloride 103 (98-107) mmol/L Carbon Dioxide 28 (21-32) mmol/L POC Total CO2 (24-31) mmol/L Anion Gap 5.0 (3-11) POC Anion Gap (16-25) mmol/L POC BUN (7-18) mg/dl BUN 25 H (7-18) mg/dl Creatinine 1.12 (0.6-1.4) mg/dl POC Creatinine (0.6-1.3) mg/dl Est Cr Clr Drug Dosing 83.4 ml/min Est GFR ( Amer) 77.3 Est GFR (Non-Af Amer) 66.7 BUN/Creatinine Ratio 22.1 H (10-20) Glucose 127 H (70-99) mg/dl POC Glucose (other) (70-99) mg/dl Calcium 9.1 (8.5-10.1) mg/dl POC Ioniz Calcium [place] (1.12-1.32) mmol/l Total Bilirubin 1.0 (0.2-1) mg/dl AST 51 H (15-37) U/L ALT 53 (12-78) U/L Alkaline Phosphatase 56 (45-117) U/L Troponin I 0.093 H* (0-0.045) ng/ml Total Protein 6.6 (6.4-8.2) gm/dl Albumin 2.7 L (3.4-5.0) gm/dl Globulin 3.9 (2.5-4.0) gm/dl Albumin/Globulin Ratio 0.7 L (0.9-2) 05/19/20 Range/Units 14:33 WBC (4.8-10.8) K/uL RBC (4.7-6.1) M/uL Hgb (14.0-18.0) g/dL POC Hgb 12.6 L (14.0-18.0) g/dl Hct (42-52) % POC Hct 37 L (42-52) % MCV (80-100) fL MCH (25-34) pg MCHC (32-36) g/dL RDW Std Deviation (36.4-46.3) fL RDW Coeff of Jeo (11.5-14.5) % Plt Count (130-400) K/uL MPV (7.4-10.4) fL Immature Gran % (Auto) % Neut % (Auto) % Lymph % (Auto) % Eagle % (Auto) % Eos % (Auto) % Baso % (Auto) % Neut # (Auto) (1.4-6.5) K/uL Lymph # (Auto) (1.2-3.4) K/uL [place] # (Auto) (0.11-0.59) K/uL Eos # (Auto) (0-0.5) K/uL Baso # (Auto) (0-0.2) K/uL Immature Gran # (Auto) (0.00-0.02) K/uL PT (9.0-12.0) Seconds INR (0.9-1.1) APTT (21.0-31.0) Seconds PTT Ratio POC Sodium 136 (135-144) mmol/L Sodium (136-145) mmol/L POC Potassium 4.7 (3.3-5.0) mmol/L Potassium (3.5-5.1) mmol/L POC Chloride 100 L (101-112) mmol/L Chloride (98-107) mmol/L Carbon Dioxide (21-32) mmol/L POC Total CO2 29 (24-31) mmol/L Anion Gap (3-11) POC Anion Gap 14.0 L (16-25) mmol/L POC BUN 22 H (7-18) mg/dl BUN (7-18) mg/dl Creatinine (0.6-1.4) mg/dl POC Creatinine 1.0 (0.6-1.3) mg/dl Est Cr Clr Drug Dosing ml/min Est GFR ( Amer) Est GFR (Non-Af Amer) BUN/Creatinine Ratio (10-20) Glucose (70-99) mg/dl POC Glucose (other) 125 H (70-99) mg/dl Calcium (8.5-10.1) mg/dl POC Ioniz Calcium [place] 1.15 (1.12-1.32) mmol/l Total Bilirubin (0.2-1) mg/dl AST (15-37) U/L ALT (12-78) U/L Alkaline Phosphatase (45-117) U/L Troponin I (0-0.045) ng/ml Total Protein (6.4-8.2) gm/dl Albumin (3.4-5.0) gm/dl Globulin (2.5-4.0) gm/dl Albumin/Globulin Ratio (0.9-2) Administered Medications Heparin Sodium/Dextrose (Heparin Sodium/Dextrose) 25,000 units in 500 mls @ 34 mls/hr IV .[id number] [facility]; Protocol Stop: 06/18/20 15:29 Last Admin: 05/19/20 15:48 Dose: 1,700 units/hr, 34 mls/hr Documented by: [id number] Cosigned by: [id number] Diltiazem HCl 125 mg/ Dextrose 125 mls @ 5 mls/hr IV .Q24H [facility]; Protocol Stop: 06/18/20 17:14 Last Admin: 05/19/20 17:39 Dose: 5 mg/hr, 5 mls/hr Documented by: [id number] Cosigned by: [id number] Discontinued Medications Albuterol (Albuterol Hfa 8 Gm Inhaler) 6 puffs INH NOW ONE Stop: 05/19/20 13:38 Last Admin: 05/19/20 14:36 Dose: 6 puffs Documented by: [id number] Diltiazem HCl (Diltiazem Hcl 5 Mg/Ml 5 Ml Vial) 10 mg IV NOW STA Stop: 05/19/20 17:14 Last Admin: 05/19/20 17:27 Dose: 10 mg Documented by: [id number] Cosigned by: [id number] Heparin Sodium (Porcine) (Heparin Sod 5,000 Unit/0.5 Ml Vial) Confirm Administer ed Dose 5,000 units .ROUTE .STK-MED ONE Stop: 05/19/20 15:39 Last Admin: 05/19/20 15:49 Dose: 5,000 units Documented by: [id number] Cosigned by: [id number] Heparin Sodium/Dextrose (Heparin Iv Standard With Bolus) 1 ea IV NOW STA; Protocol Stop: 05/19/20 15:18 Last Admin: 05/19/20 15:59 Dose: Not Given Documented by: [id number] Sodium Chloride (Nss 1000ml) 1,000 mls @ 999 mls/hr IV .Q1H1M ONE Stop: 05/19/20 14:38 Last Infusion: 05/19/20 15:59 Dose: 0 mls/hr Documented by: [id number] Admin: 05/19/20 14:32 Dose: 999 mls/hr Documented by: [id number] Ioversol (Optiray 320 125ml) 120 ml IV ONCE ONE Stop: 05/19/20 14:54 Last Admin: 05/19/20 14:56 Dose: 120 ml Documented by: [id number] Miscellaneous (Stat Iv Infusion Titration Per Protocol) 1 ea N/A NOW STA Stop: 05/19/20 17:14 Last Admin: 05/19/20 17:40 Dose: Not Given Documented by: [id number] Discharge Plan Visit Data Chief Complaint: Shortness of Breath/Dyspnea Stated Complaint: SOB, POST SURGERY, FEVER ED Provider: Ivan Orta Discharge Problem: Pulmonary embolism, Elevated troponin, Atrial fibrillation with rapid ventricular response, History of left hip replacement Forms Stand Alone Forms: [facility] Prescriptions Prescriptions: No Action losartan 50 mg Tablet 50 mg PO QAM RF: 0 meloxicam 15 mg Tablet 15 mg PO QAM RF: 0 alprazolam 0.5 mg Tablet 0.5 mg PO HS RF: 0 hydrochlorothiazide 12.5 mg Tablet 12.5 mg PO QAM RF: 0 glucosamine HCl 1,500 mg Tablet 1,500 mg PO DAILY RF: 0 [place] 3-6-9 1,200 mg Capsule 1 cap PO DAILY RF: 0 diphenhydramine HCl [Sleep Aid (diphenhydramine)] 50 mg Capsule 50 mg PO HS RF: 0 famotidine 20 mg Tablet 20 mg PO HS RF: 0 cholecalciferol (vitamin D3) [Vitamin D3] 25 mcg (1,000 unit) Tablet 25 mcg PO QAM RF: 0 melatonin 5 mg Tablet 5 mg PO HS RF: 0 turmeric 400 mg Capsule 500 mg PO DAILY RF: 0 montelukast 10 mg Tablet 10 mg PO QAM RF: 0 oxycodone 5 mg Tablet 5 mg PO Q4H PRN (Reason: pain) Qty: 30 RF: 0 aspirin 81 mg Tablet,Delayed Release (Dr/Ec) 81 mg PO BID 42 Days Qty: 0 RF: 0 garlic 500 mg Capsule 500 mg PO DAILY RF: 0 albuterol sulfate 90 mcg/actuation Hfa Aerosol Inhaler 2 puff INHALATION DIRECTED PRN (Reason: Shortness Of Breath Or Wheezing) RF: 0 potassium gluconate 600 mg (99 mg) Tablet 600 mg PO DAILY RF: 0 Discharge Problem: Pulmonary embolism Qualifiers: Pulmonary embolism type: unspecified Chronicity: acute Acute cor pulmonale presence: unspecified Qualified Code(s): I26.99 - Other pulmonary embolism without acute cor pulmonale
[2020-05-19 14:46] LABS: Basophils # (auto) 0.01 K/uL (0-0.2); Basophils % (auto) 0.1 %; Eosinophils # (auto) 0.05 K/uL (0-0.5); Eosinophils % (auto) 0.7 %; Hematocrit (blood only) 38.7 % (42-52); Hemoglobin 13.1 g/dL (14.0-18.0); Immature Granulocytes # (auto) 0.04 K/uL (0.00-0.02); Immature Granulocytes % (auto) 0.6 %; Lymphocytes # (auto) 1.05 K/uL (1.2-3.4); Lymphocytes % (auto) 14.6 %; Mean Corpuscular Hgb Conc 33.9 g/dL (32-36); Mean Corpuscular Volume 94.6 fL (80-100); Mean Platelet Volume 9.2 fL (7.4-10.4); Monocytes # (auto) 0.76 K/uL (0.11-0.59); Monocytes % (auto) 10.6 %; Neutrophils # (auto) 5.26 K/uL (1.4-6.5); Neutrophils % (auto) 73.4 %; Platelet Count 266 K/uL (130-400); RDW Coefficient of Variation 12.5 % (11.5-14.5); Red Blood Count 4.09 M/uL (4.7-6.1); White Blood Count 7.17 K/uL (4.8-10.8)
[2020-05-19 14:51] LABS: INR 1.1 (0.9-1.1); Partial Thromboplastin Ratio 0.9; Partial Thromboplastin Time 26.2 Seconds (21.0-31.0); Prothrombin Time 11.4 Seconds (9.0-12.0)
[2020-05-19] MEDS ORDERED: OPTIRAY 320 125ml IV ONE (14:53)
[2020-05-19 15:02] LABS: Albumin Level 2.7 gm/dl (3.4-5.0); BUN Creatinine Ratio 22.1 (10-20); Calcium 9.1 mg/dl (8.5-10.1); Creatinine Clr Calc Pharmacy 83.4 ml/min; Est GFR (African American) 77.3; Est GFR (Non-African American) 66.7; Potassium 4.6 mmol/L (3.5-5.1)
[2020-05-19 15:09] LABS: Albumin Globulin Ratio 0.7 (0.9-2); Globulin 3.9 gm/dl (2.5-4.0); Total Protein 6.6 gm/dl (6.4-8.2); Troponin I 0.093 ng/ml (0-0.045)
--- NOTE | 2020-05-19 15:13 | CT Scan Report ---
CT ANGIOGRAM OF THE CHEST CLINICAL HISTORY: Dyspnea. COMPARISON STUDY: Chest x-ray dated 05/07/2020. TECHNIQUE: Following the IV administration of 120 cc of Optiray 320, CT angiogram of the chest was pe rformed from the upper abdomen to the thoracic inlet utilizing the pulmonary embolus protocol. Images are reviewed in the axial, sagittal, and coronal planes. 3-D MIPS images are created and assessed. I V contrast was administered without complication. A dose lowering technique was utilized adhering to the principles of ALARA. CT DOSE: 648.30 mGy.cm FINDINGS: Thyroid: Imaged portions of the thyroid gland are normal in size and attenuation. Thoracic aorta: There is mild atherosclerotic calcification of the thoracic aorta, which is normal in caliber and demonstrates standard 3-vessel arch anatomy. No dissection is seen. Pulmonary vasculature: The pulmonary trunk is dilated measuring 3.4 cm in diameter. This suggests pul monary artery hypertension. There is extensive bilateral pulmonary embolus. There is thrombus within the distal right and left main pulmonary arteries. This extends into the right upper and right lower lobar pulmonary arteries. Segmental and subsegmental pulmonary emboli are present within the right up per, middle, and lower lobes. Thrombus on the left extends into the upper and lower lobar pulmonary a rteries. Thrombus extends into segmental and subsegmental branches in the left upper and lower lobes. Heart: The heart is normal in size and without pericardial effusion. Lungs and pleural spaces: Evaluation of the lung parenchyma is modestly degraded by motion artifact. Extensive groundglass consolidation is seen throughout the right upper lobe with denser consolidative change seen anteriorly. Mild groundglass consolidation is seen centrally within the right middle lob e and within the infrahilar right lower lobe. The left lung appears clear. No pleural effusion is chris ntified. The trachea and central airways are patent. Mediastinum: There is no mediastinal lymphadenopathy. Elodia: Prominent right hilar nodes measure up to 12 mm in short axis. Axillae: There is no axillary lymphadenopathy. Upper abdomen: Partially visualized upper abdominal viscera is within normal limits. Skeletal structures: No lytic or blastic bony lesions are seen. IMPRESSION: 1. Extensive bilateral pulmonary embolus as above. 2. There is extensive right upper lobe consolidation, as well as mild patchy groundglass consolidatio n in the right middle and lower lobes. This could represent pulmonary infarct and/or an infectious/in flammatory pneumonitis. Clinical correlation will be required. 3. The left lung appears clear. 4. No pleural effusion is identified. ACT 112: Negative or not required by law. Electronically signed by: Rony Taylor M.D. 05/19/2020 3:11 PM
[2020-05-19] MEDS ORDERED: Heparin IV Adult Wt-Based Standard WITH Bolus Protocol IV STA (15:17)
--- NOTE | 2020-05-19 15:24 | XRay Report ---
XR chest 1V portable HISTORY: 69 years-old Male SOB acute shortness of breath COMPARISON: CTA of the chest of same day TECHNIQUE: Portable AP view of the chest FINDINGS: Cardiac silhouette is mildly enlarged. No pneumothorax, pleural effusion or overt pulmonary edema. Ex tensive right upper lobe airspace consolidation redemonstrated. The left lung is clear. Degenerative changes of the shoulders and spine. IMPRESSION: Right upper lobe airspace consolidation suggestive of pulmonary infarct versus pneumonia. Short-term follow-up recommended to document resolution. ACT 112: Negative or not required by law. The above report was generated using voice recognition software. It may contain grammatical, syntax o r spelling errors. Electronically signed by: Venkat Rodriguez M.D. 05/19/2020 3:22 PM
[2020-05-19] MEDS ORDERED: HEPARIN SOD 5,000 UNIT/0.5 ML VIAL ONE (15:38)
[2020-05-19] MEDS: HEPARIN SODIUM/DEXTROSE 25,000 UNITS/500 ML BAG IV SCH (15:48)
--- NOTE | 2020-05-19 16:47 | Electrocardiogram Report ---
Test Reason : Blood Pressure : / mmHG Vent. Rate : 086 BPM Atrial Rate : 086 BPM P-R Int : 142 ms QRS Dur : 102 ms QT Int : 384 ms P-R-T Axes : 014 -30 019 degrees QTc Int : 459 ms Normal sinus rhythm Left axis deviation Abnormal ECG When compared with ECG of 07-MAY-2020 10:49, No significant change was found Confirmed by Brian Montejo ([id number] on 05/19/2020 4:47:39 PM Referred By: REFERRED SELF Confirmed By:Brian Montejo
--- NOTE | 2020-05-19 16:57 | History & Physical Report ---
Date of Service May 19, 2020 Assessment & Plan (1) Acute pulmonary embolism: 69 y/o M post hip replacement 5 days ago and on aspirin bid comes with shortness of breath and cough - noted to have extensive PE Acute PE Extensive PE in post op setting while on prophylactic aspirin BID - says he was compliant with meds. Was sedentary and didn't use QUINN stocking - would consider provoked. Started on IV heparin drip in ED-continue. Monitor hemodynamically If stable in am - will d/c on DOAC May need 2 step before discharge for possible exertional dyspnea Left hip replacement Notified ortho - Dr. Beckman of current admission HTN Snoring Home meds should consider sleep study as outpatient Asthma Allergies Albuterol MDI Urinary frequency Chronic - monitor here. To be addressed as outpatient Sleep disturbance On hs alprazolam and melatonin. DVT proph - IV heparin drip Full code FEN - cardiac diet Dispo - Tele (2) Status post left hip replacement: (3) HTN (hypertension): (4) Snores: (5) Asthma: (6) Environmental allergies: (7) Urinary frequency: (8) Acid reflux: History of Present Illness Primary Care Provider: Rajeev Harkins 69 y/o M who underwent left hip replacement on 05/14/[address] Beckman presented with c/o dry cough and shortness of breath since last night. Due to his history of asthma he used his inhalers with no relief. He denies any chest pain, abdominal pain, nausea vomiting or diarrhea. He later felt very hot last night and weak. Denied having fever. He started to feel weak and then decided to come to ED. Denies any drainage or discharge from the incision site. He has long standing urinary frequency but denied any worsening of symptoms. In the ED he had CT chest showing extensive PE and started on IV heparin drip Allergies Allergy/AdvReac Type Severity Reaction Status Date / Time ampicillin Allergy Unknown AT [facility] Verified 05/19/20 15:15 AGE - RASH / BLISTERS Home Medications Home Medications Medication Instructions Recorded Confirmed Type [place] 3-6-9 1 cap PO DAILY 04/29/20 05/19/20 History alprazolam 0.5 mg PO HS 04/29/20 05/19/20 History cholecalciferol (vitamin D3) 25 mcg PO QAM 04/29/20 05/19/20 History [Vitamin D3] diphenhydramine HCl [Sleep Aid 50 mg PO HS 04/29/20 05/19/20 History (diphenhydramine)] famotidine 20 mg PO HS 04/29/20 05/19/20 History glucosamine HCl 1,500 mg PO DAILY 04/29/20 05/19/20 History hydrochlorothiazide 12.5 mg PO QAM 04/29/20 05/19/20 History losartan 50 mg PO QAM 04/29/20 05/19/20 History melatonin 5 mg PO HS 04/29/20 05/19/20 History meloxicam 15 mg PO QAM 04/29/20 05/19/20 History montelukast 10 mg PO QAM 04/29/20 05/19/20 History turmeric 500 mg PO DAILY 04/29/20 05/19/20 History aspirin 81 mg PO BID 42 Days #0 tab 05/15/20 05/19/20 Rx oxycodone 5 mg PO Q4H PRN #30 tab 05/15/20 05/19/20 Rx albuterol sulfate 2 puff INHALATION DIRECTED PRN 05/19/20 05/19/20 History garlic 500 mg PO DAILY 05/19/20 05/19/20 History potassium gluconate 600 mg PO DAILY 05/19/20 05/19/20 History Past Med/Surg History Medical History Acid reflux Mostly controlled Asthma NO DAILY INHALER. LAST USE PRN INHALER 4-5 DAYS AGO - AVERAGE USE 3-4X PER MONTH Environmental allergies HAY FEVER/NO PROBLEM CURRENTLY History of skin cancer REMOVED HTN (hypertension) Osteoarthritis Snores NO HX SLEEP STUDY Urinary frequency IMPROVING., PCP MONITORING Surgical History History of arthroscopy of left knee History of arthroscopy of right knee History of colonoscopy History of endoscopy History of toe surgery L GREAT TOE PLATE /SCREWS Status post left hip replacement (~04/2020) Family History Other Family history of diabetes mellitus in daughter Social History Smoking Status: Never smoker Hx Alcohol Use: Yes Alcohol type: beer Preferred Language: Persian Communication Ability: Effective [employer] Required: No Beliefs That Will Affect Care: None marital status: Current Living Situation: Spouse Feels Safe at Home: Yes Assistive Devices: Walker Review of Systems Review of Systems: All systems reviewed & are unremarkable except as noted in HPI & below Physical Exam Constitutional: WD/WN, vitals as above Eyes: PERRL, conjunctivae normal, anicteric sclerae ENMT: external ear and nose normal, oropharynx normal Neck: trachea midline, no thyromegaly Respiratory: Auscultation: lungs clear to auscultation bilaterally Mild conversational dyspnea Cardiovascular: RRR, no murmur, no edema Gastrointestinal (Abdomen): normal bowel sounds, soft, nontender, no hepatosplenomegaly Musculoskeletal: no cyanosis or clubbing, extremities motor strength 5/5 Left leg diameter slightly bigger than right. Left hip dressing clean Skin: no rashes, warm and dry Neurologic: patellar DTR's 2+ bilat, sensation intact Psychiatric: A+Ox3, euthymic affect Results & Data Results & Data ([facility]) Vital Signs (Past 12 Hours) Vital Signs Temp Pulse Resp BP Pulse Ox 05/19/20 15:02 86 21 176/78 H 97 05/19/20 14:28 84 18 93 05/19/20 12:41 36.5 C 98 H 22 101/58 L 96 05/19/20 12:32 95
[2020-05-19] MEDS ORDERED: dilTIAZem HCl 5 MG/ML 5 ML VIAL IV STA ×2 (17:13→23:46)
[2020-05-19] MEDS ORDERED: STAT IV Infusion **Titration per Protocol STA (17:13)
[2020-05-19 17:37] LABS: iSTAT Hemoglobin 12.6 g/dl (14.0-18.0); iSTAT Ionized Calcium 1.15 mmol/l (1.12-1.32); iSTAT Potassium 4.7 mmol/L (3.3-5.0)
[2020-05-19] MEDS: dilTIAZem HCL 125 MG in DEXTROSE 5% 100 ML IV SCH (17:39)
[2020-05-19 18:29] LABS: Appearance Urine Clear (Clear); Bacteria Urine Automated Negative (Negative); Bilirubin Urine Negative (Negative); Blood Urine Trace (Negative); Color Urine Yellow; Epithelial Cell Urine Auto 0-5 /lpf (0-5); Glucose Urine UA Negative (Negative); Ketones Urine Negative (Negative); Leukocyte Esterase Urine Negative (Negative); Nitrite Urine Negative (Negative); Protein Urine Negative (Negative); RBC Urine Automated 0-4 /hpf (0-4); Specific Gravity Urine > 1.045 (1.000-1.030); Urobilinogen Urine Negative (Negative); WBC Urine Automated 0 /hpf (0-5)
[2020-05-19] MEDS ORDERED: ONDANSETRON INJ 2 MG/ML 2 ML VIAL IV PRN (20:47)
[2020-05-19] MEDS ORDERED: HEPARIN SODIUM/DEXTROSE 25,000 UNITS/500 ML BAG IV SCH (20:47)
[2020-05-19] MEDS ORDERED: ALBUTEROL HFA 8 GM INHALER INH PRN (20:47)
[2020-05-19] MEDS ORDERED: ACETAMINOPHEN 325 MG TAB PO PRN (20:47)
[2020-05-19] MEDS ORDERED: INFLUENZA VIRUS QUAD VACCINE 0.5 ML SYR IM ONE (21:15)
[2020-05-19] MEDS ORDERED: INFLUENZA ADMINISTRATION CHARGE ONE (21:15)
[2020-05-19 23:00] LABS: Partial Thromboplastin Ratio 1.7
[2020-05-19 23:02] LABS: Partial Thromboplastin Time 47.8 Seconds (21.0-31.0)
[2020-05-19] MEDS: ALPRAZolam 0.5 MG TABLET PO SCH (23:17)
[2020-05-19] MEDS: FAMOTIDINE 20 MG TAB PO SCH (23:17)
[2020-05-20] MEDS: oxyCODONE HCL IR 5 MG TAB (IMMEDIATE RELEASE) PO PRN ×2 (02:08→23:00)
[2020-05-20] MEDS: dilTIAZem HCL 125 MG in DEXTROSE 5% 100 ML IV SCH ×4 (02:15→20:05)
[2020-05-20] MEDS: HEPARIN SODIUM/DEXTROSE 25,000 UNITS/500 ML BAG IV SCH ×2 (06:38→19:55)
[2020-05-20 06:51] LABS: Partial Thromboplastin Ratio 1.6; Partial Thromboplastin Time 43.9 Seconds (21.0-31.0)
[2020-05-20] MEDS ORDERED: HEPARIN IV BOLUS 4,000 UNITS in SYRINGE 0 ML IV ONE (07:00)
--- NOTE | 2020-05-20 07:00 | Hospitalist Progress Note ---
Date of Service May 20, 2020 Assessment & Plan (1) Acute pulmonary embolism: 69 y/o M post hip replacement 5 days ago and on aspirin bid comes with shortness of breath and cough and was found to have extensive P. Acute PE Extensive PE in post op setting while on prophylactic aspirin BID - says he was compliant with meds. Was sedentary and didn't use QUINN stocking - would consider provoked. Started on IV heparin drip in ED-continue for now until ready to be discharged. A flutter - rapid No prior hx. most likely 2/2 PE Went in rapid a flutter - 120s-130s early this am. Has been on cardizem drip Add metoprolol and wean cardizem drip Likely went in a flutter sec to hypoxia sec to PE. HR going up with minimal ambulation. If continues to be tachycardic - will need cardioversion. Check echo and TSH. Left hip replacement: ortho aware. HTN, Snoring: Home meds and outpatient sleep study if already hasn't had Asthma, Allergies: Albuterol MDI Glucose intolerance: check A1c Urinary frequency: Chronic - monitor here. To be addressed as outpatient Sleep disturbance: qhs alprazolam and melatonin. DVT proph - IV heparin drip Full code FEN - cardiac diet Dispo - Tele (2) Status post left hip replacement: (3) HTN (hypertension): (4) Snores: (5) Asthma: (6) Environmental allergies: (7) Urinary frequency: (8) Acid reflux: Admission and Anticipated Discharge Date Admission Date: May 19, 2020 Supervising Physician Co-Signing Physician Notes Resident Physician Supervision Note: I independently interviewed and examined the patient and verified the hernandez history and physical, reviewed labs and image studies, discussed the case with the resident Dr. Mcintosh and agree with the findings and care plan. Subjective L hip replacement 05/14/20 Dr. Beckman. 05/18/20 night developed cough w/ phlegn he could not bring up. used inhaler. wed am, felt weak when showering, attributes to breathing. nebulizer helped some. went to ed to get checked out. no hx or fam hx bleeding disordr. no hormones, no hx cancer, no prolonged car ride. no sob before 05/18/20. no prior hx of vte. + recent surgery subj fever early yesterday AM.,not checked on thermometer. no current subj F. Review of Systems Review of Systems: some sob when walked to bathroom last night. no sob at rest. no cp, palp, f/c, n/v, abd pain, diarr, + occasional dysuria, new symptom for him since this admission + urinary freq last 1.5 month Physical Exam Physical Exam: trace edema Constitutional: WD/WN, vitals as above Respiratory: Auscultation: lungs clear to auscultation bilaterally Cardiovascular: irregular heart rate Gastrointestinal (Abdomen): normal bowel sounds, soft, nontender, no hepatosplenomegaly Results & Data Results & Data ([facility]) Vital Signs (Past 12 Hours) Vital Signs Temp Pulse Pulse Resp BP BP Pulse Ox 05/20/20 03:24 37.1 C 133 H 16 133/91 98 05/20/20 00:00 134 H 05/19/20 23:56 37 C 144 H 18 115/78 93 05/19/20 20:48 36.9 C 156 H 168/80 H 95 05/19/20 20:47 114 H 05/19/20 20:00 115 H 23 195/105 H 95 05/19/20 19:30 111 H 13 166/99 H 95 05/19/20 19:00 127 H 19 182/85 H 94 Resident Activity Tracking Resident Involvement: Resident Care Provided Care Provided: Adult [facility] Medicine
[2020-05-20] MEDS: hydroCHLOROthiazide 25 MG TAB PO SCH (08:05)
[2020-05-20] MEDS: LOSARTAN POTASSIUM 50 MG TAB PO SCH (08:06)
[2020-05-20] MEDS: MONTELUKAST SODIUM 10 MG TABLET PO SCH (08:06)
--- NOTE | 2020-05-20 11:04 | Electrocardiogram Report ---
Test Reason : Blood Pressure : / mmHG Vent. Rate : 149 BPM Atrial Rate : 149 BPM P-R Int : 132 ms QRS Dur : 130 ms QT Int : 266 ms P-R-T Axes : 243 -63 048 degrees QTc Int : 418 ms Probable Atrial flutter with 2 to 1 block Left axis deviation Left ventricular hypertrophy with QRS widening and repolarization abnormality Abnormal ECG When compared with ECG of 19-MAY-2020 14:22, Atrial flutter has replaced Sinus rhythm Vent. rate has increased BY 63 BPM Questionable change in QRS duration Confirmed by Kurt Mckeon ([id number]) on 05/20/2020 11:04:05 AM Referred By: REFERRED SELF Confirmed By:Kurt Mckeon
[2020-05-20] MEDS ORDERED: METOPROLOL TARTRATE 25 MG TAB PO STA (11:34)
[2020-05-20 13:27] LABS: Partial Thromboplastin Ratio 2.5
[2020-05-20 13:47] LABS: Partial Thromboplastin Time 69.3 Seconds (21.0-31.0)
[2020-05-20] MEDS ORDERED: METOPROLOL TARTRATE 25 MG TAB PO ONE (17:00)
[2020-05-20] MEDS: METOPROLOL TARTRATE 50 MG TAB PO SCH (19:57)
[2020-05-20] MEDS: FAMOTIDINE 20 MG TAB PO SCH (19:57)
--- NOTE | 2020-05-20 20:53 | Anesthesiology Consultation ---
Date of Service May 20, 2020 Assessment & Plan (1) Encounter for pre-operative examination: Chart Review Chart Review: Acceptable Risk for Surgery and Patient NOT seen in Pre Admission Testing preop covid screen ordered. Consults Requested none History Height/Weight Height: 5 ft 11 in Weight: 125.8 kg Allergies Allergy/AdvReac Type Severity Reaction Status Date / Time ampicillin Allergy Unknown AT [facility] Verified 05/19/20 15:15 AGE - RASH / BLISTERS Medications Home Medications Medication Instructions Recorded Confirmed Last Taken Lysite 3-6-9 1 cap PO DAILY 04/29/20 05/19/20 05/19/20 alprazolam 0.5 mg PO HS 04/29/20 05/19/20 05/18/20 cholecalciferol (vitamin D3) 25 mcg PO QAM 04/29/20 05/19/20 05/19/20 [Vitamin D3] diphenhydramine HCl [Sleep Aid 50 mg PO HS 04/29/20 05/19/20 05/18/20 (diphenhydramine)] famotidine 20 mg PO HS 04/29/20 05/19/20 05/18/20 glucosamine HCl 1,500 mg PO DAILY 04/29/20 05/19/20 05/19/20 hydrochlorothiazide 12.5 mg PO QAM 04/29/20 05/19/20 05/19/20 losartan 50 mg PO QAM 04/29/20 05/19/20 05/19/20 melatonin 5 mg PO HS 04/29/20 05/19/20 05/18/20 meloxicam 15 mg PO QAM 04/29/20 05/19/20 05/19/20 montelukast 10 mg PO QAM 04/29/20 05/19/20 05/19/20 turmeric 500 mg PO DAILY 04/29/20 05/19/20 05/19/20 aspirin 81 mg PO BID 42 Days #0 tab 05/15/20 05/19/20 05/19/20 08:00 oxycodone 5 mg PO Q4H PRN #30 tab 05/15/20 05/19/20 05/19/20 10:00 albuterol sulfate 2 puff INHALATION DIRECTED PRN 05/19/20 05/19/20 Unknown garlic 500 mg PO DAILY 05/19/20 05/19/20 05/19/20 potassium gluconate 600 mg PO DAILY 05/19/20 05/19/20 05/19/20 Active Medications Generic Name Dose Route Start Last Admin Trade Name Joseq PRN Reason Stop Dose Admin Alprazolam 0.5 mg 05/19/20 21:00 05/19/20 23:17 Alprazolam 0.5 Mg Tablet PO 06/18/20 20:59 0.5 mg HS TERRY Administration Famotidine 20 mg 05/19/20 21:00 05/20/20 19:57 Famotidine 20 Mg Tab PO 06/18/20 20:59 20 mg HS TERRY Administration Hydrochlorothiazide 12.5 mg 05/20/20 09:00 05/20/20 08:05 Hydrochlorothiazide 25 Mg Tab PO 06/19/20 08:59 12.5 mg QAM TERRY Administration Heparin Sodium/Dextrose 25,000 units in 500 mls @ 36 mls/hr 05/19/20 15:30 05/20/20 19:55 Heparin Sodium/Dextrose IV 06/18/20 15:29 1,800 units/hr .[id number] TERRY 36 mls/hr Administration Protocol 1,800 UNITS/HR Diltiazem HCl 125 mg/ Dextrose 125 mls @ 5 mls/hr 05/19/20 17:15 05/20/20 20:05 IV 06/18/20 17:14 Not Given .Q24H TERRY Protocol 5 MG/HR Losartan Potassium 50 mg 05/20/20 09:00 05/20/20 08:06 Losartan Potassium 50 Mg Tab PO 06/19/20 08:59 50 mg QAM TERRY Administration Metoprolol Tartrate 50 mg 05/20/20 21:00 05/20/20 19:57 Metoprolol Tartrate 50 Mg Tab PO 06/19/20 20:59 50 mg BID TERRY Administration Montelukast Sodium 10 mg 05/20/20 09:00 05/20/20 08:06 Montelukast Sodium 10 Mg Tablet PO 06/19/20 08:59 10 mg QAM TERRY Administration Oxycodone HCl 5 mg 05/19/20 20:52 05/20/20 02:08 Oxycodone Hcl Ir 5 Mg Tab (Immediate Release) PO 06/02/20 20:51 5 mg Q4H PRN Administration Pain Past Medical History Medical History (Updated 05/20/20 @ 20:53 by Braden Felder MD) Acid reflux Mostly controlled Asthma NO DAILY INHALER. LAST USE PRN INHALER 4-5 DAYS AGO - AVERAGE USE 3-4X PER MONTH Atrial fibrillation with rapid ventricular response Elevated troponin Environmental allergies HAY FEVER/NO PROBLEM CURRENTLY History of skin cancer REMOVED HTN (hypertension) Osteoarthritis Pulmonary embolism Acute PE Extensive PE in post op setting while on prophylactic aspirin BID - says he was compliant with meds. Was sedentary and didn't use QUINN stocking - would consider provoked. Started on IV heparin drip in ED-continue. Snores NO HX SLEEP STUDY Urinary frequency IMPROVING., PCP MONITORING Exercise / Class Metabolic Activity II 4-5 Yardwork/Stairs/Walk up hill Past Family History Family History Other Family history of diabetes mellitus in daughter Past Surgical History Surgical History (Updated 05/20/20 @ 20:49 by Braden Felder MD) History of arthroscopy of left knee History of arthroscopy of right knee History of colonoscopy History of endoscopy History of toe surgery L GREAT TOE PLATE /SCREWS Status post left hip replacement (~04/2020) 05/14/2020. SAB with sedation. Social History Smoking Status: Former smoker tobacco type: cigars Do You Dip or Chew Tobacco: No Hx Alcohol Use: Yes Alcohol type: beer alcohol intake frequency: a few times a month Hx Substance Use: No substance use type: does not use Physical Exam Vital Signs Last Vital Signs Temp 37.1 C 05/20/20 18:51 Pulse 86 05/20/20 18:51 Resp 20 05/20/20 18:51 BP 127/68 05/20/20 18:51 Pulse Ox 97 05/20/20 18:51 Testing Laboratory Results 05/19/20 14:20 05/19/20 14:20 PT 11.4 Seconds (9.0-12.0) 05/19/20 14:20 INR 1.1 (0.9-1.1) 05/19/20 14:20 APTT 69.3 Seconds (21.0-31.0) H* 05/20/20 12:56 Urine Color Yellow 05/19/20 18:15 Urine Appearance Clear (Clear) 10/21/20 18:15 Urine pH 6.0 (4.5-7.5) 05/19/20 18:15 Ur Specific [place] > 1.045 (1.000-1.030) H 05/19/20 18:15 Urine Protein Negative (Negative) 05/19/20 18:15 Urine Glucose (UA) Negative (Negative) 05/19/20 18:15 Urine Ketones Negative (Negative) 05/19/20 18:15 Urine Nitrite Negative (Negative) 05/19/20 18:15 Ur Leukocyte Esterase Negative (Negative) 05/19/20 18:15 Urine WBC (Auto) 0 /hpf (0-5) 05/19/20 18:15 Urine RBC (Auto) 0-4 /hpf (0-4) 05/19/20 18:15 U Hyaline Cast (Auto) 1-5 /lpf (0-5) 05/19/20 18:15 U Epithel Cells (Auto) 0-5 /lpf (0-5) 05/19/20 18:15 Urine Bacteria (Auto) Negative (Negative) 05/19/20 18:15 Electrocardiogram Date: 05/19/20 HR 149. Probable Atrial flutter with 2 to 1 block Left axis deviation Left ventricular hypertrophy with QRS widening and repolarization abnormality Abno rmal ECG When compared with ECG of 19-MAY-2020 14:22, Atrial flutter has replaced Sinus rhythm Vent. rate has increased BY 63 BPM Questionable change in QRS duration Confirmed by Kurt Mckeon ([id number]) on 05/20/2020 11:04:05 AM Chest X-Ray Date: 05/19/20 XR chest 1V portable HISTORY: 69 years-old Male SOB acute shortness of breath COMPARISON: CTA of the chest of same day TECHNIQUE: Portable AP view of the chest FINDINGS: Cardiac silhouette is mildly enlarged. No pneumothorax, pleural effusion or overt pulmonary edema. Extensive right upper lobe airspace consolidation redemonstrated. The left lung is clear. Degenerative changes of the shoulders and spine. IMPRESSION: Right upper lobe airspace consolidation suggestive of pulmonary infarct versus pneumonia. Short-term follow-up recommended to document resolution. Other Testing Chest CT scan 05/19/2020: IMPRESSION: 1. Extensive bilateral pulmonary embolus as above. 2. There is extensive right upper lobe consolidation, as well as mild patchy groundglass consolidation in the right middle and lower lobes. This could represent pulmonary infarct and/or an infectious/inflammatory pneumonitis. Clinical correlation will be required. 3. The left lung appears clear. 4. No pleural effusion is identified.
[2020-05-20 22:46] LABS: Partial Thromboplastin Ratio 1.9
[2020-05-20] MEDS: ALPRAZolam 0.5 MG TABLET PO SCH (23:00)
[2020-05-20 23:13] LABS: Partial Thromboplastin Time 52.5 Seconds (21.0-31.0)
[2020-05-21 05:52] LABS: Basophils # (auto) 0.02 K/uL (0-0.2); Basophils % (auto) 0.2 %; Eosinophils # (auto) 0.31 K/uL (0-0.5); Eosinophils % (auto) 3.7 %; Hematocrit (blood only) 35.6 % (42-52); Hemoglobin 12.2 g/dL (14.0-18.0); Immature Granulocytes # (auto) 0.06 K/uL (0.00-0.02); Immature Granulocytes % (auto) 0.7 %; Lymphocytes # (auto) 2.38 K/uL (1.2-3.4); Lymphocytes % (auto) 28.6 %; Mean Corpuscular Hemoglobin 32.5 pg (25-34); Mean Corpuscular Hgb Conc 34.3 g/dL (32-36); Mean Corpuscular Volume 94.9 fL (80-100); Monocytes # (auto) 0.84 K/uL (0.11-0.59); Monocytes % (auto) 10.1 %; Neutrophils % (auto) 56.7 %; Platelet Count 262 K/uL (130-400); RDW Coefficient of Variation 12.6 % (11.5-14.5); RDW Standard Deviation 43.7 fL (36.4-46.3); Red Blood Count 3.75 M/uL (4.7-6.1); White Blood Count 8.31 K/uL (4.8-10.8)
[2020-05-21 06:14] LABS: Partial Thromboplastin Ratio 1.8
[2020-05-21 06:16] LABS: Partial Thromboplastin Time 49.4 Seconds (21.0-31.0)
[2020-05-21 06:33] LABS: Albumin Globulin Ratio 0.7 (0.9-2); Albumin Level 2.4 gm/dl (3.4-5.0); BUN Creatinine Ratio 22.4 (10-20); Bilirubin,Total 0.8 mg/dl (0.2-1); Calcium 8.3 mg/dl (8.5-10.1); Creatinine Clr Calc Pharmacy 101.3 ml/min; Est GFR (African American) 96.7; Est GFR (Non-African American) 83.5; Globulin 3.6 gm/dl (2.5-4.0); Potassium 3.8 mmol/L (3.5-5.1)
[2020-05-21 07:15] LABS: Estimated Average Glucose 123 mg/dl; Hemoglobin A1C 5.9 % (4.5-5.6)
--- NOTE | 2020-05-21 09:13 | XCELERA ---
[id number]
[2020-05-21] MEDS: MONTELUKAST SODIUM 10 MG TABLET PO SCH (09:21)
[2020-05-21] MEDS: METOPROLOL TARTRATE 50 MG TAB PO SCH (09:21)
[2020-05-21] MEDS: hydroCHLOROthiazide 25 MG TAB PO SCH (09:21)
[2020-05-21] MEDS: LOSARTAN POTASSIUM 50 MG TAB PO SCH (09:21)
[2020-05-21] MEDS: HEPARIN SODIUM/DEXTROSE 25,000 UNITS/500 ML BAG IV SCH (09:24)
--- NOTE | 2020-05-21 11:57 | Discharge Summary ---
Date of Service May 21, 2020 Admission HPI Per Admitting Provider 69 y/o M who underwent left hip replacement on 05/14/[address] Beckman presented with c/o dry cough and shortness of breath since last night. Due to his history of asthma he used his inhalers with no relief. He denies any chest pain, abdominal pain, nausea vomiting or diarrhea. He later felt very hot last night and weak. Denied having fever. He started to feel weak and then decided to come to ED. Denies any drainage or discharge from the incision site. He has long standing urinary frequency but denied any worsening of symptoms. In the ED he had CT chest showing extensive PE and started on IV heparin drip Principal Diagnosis Acute Pulmonary Embolism Discharge Exam Constitutional WD/WN, vitals as above Respiratory normal respiratory effort, lungs clear to auscultation Cardiovascular RRR, no murmur, no edema Gastrointestinal (Abdomen) normal bowel sounds, soft, nontender, no hepatosplenomegaly Psychiatric A+Ox3, euthymic affect Discharge Data Allergies Allergy/AdvReac Type Severity Reaction Status Date / Time ampicillin Allergy Unknown AT [facility] Verified 05/19/20 15:15 AGE - RASH / BLISTERS Consultations 05/19/20 15:23 ED Decision to Admit Stat Ordered Studies 05/19/20 13:37 CT angio chest PE protocol Stat Hospital Course (1) Acute pulmonary embolism: 69 y/o M post hip replacement 5 days ago and on aspirin bid comes with shortness of breath and cough and was found to have extensive PE. Acute PE Extensive PE in post op setting while on prophylactic aspirin BID - says he was compliant with meds. Was sedentary and didn't use QUINN stocking - would consider provoked. Started on IV heparin drip in ED-continue during hospital stay. Home on eliquis 10mgs bid x 7 days then 5mgs daily. New onset rapid A flutter Went in rapid a flutter - 120s-130s 05/20 am. Likely went in a flutter sec to hypoxia sec to PE. Was started on cardizem drip Later metoprolol added and cardizem drip weaned off Converted to NSR midnight before discharge. Echo with normal EF and some increase in right side pressure. Left hip replacement: Dr. Beckman was notified. to resume PT as scheduled. HTN, Snoring: Continued home meds. consider outpatient sleep study if already hasn't had Asthma, Allergies: Albuterol MDI prn use. daily antihistamine Glucose intolerance: A1c below 6 Urinary frequency: Chronic. To be addressed as outpatient Sleep disturbance: qhs alprazolam and melatonin. (2) Status post left hip replacement: (3) HTN (hypertension): (4) Snores: (5) Asthma: (6) Environmental allergies: (7) Urinary frequency: (8) Acid reflux: Total Time Total Time Spent Total Time Spent (In Minutes): 35 min Discharge Plan Discharge Items Patient Disposition: Home - Self-Care Reason For Visit: PULMONARY EMBOLISM Discharge Diagnosis: Pulmonary embolism Rapid Atrial flutter Activity: As commented below Activity Comment: slowly advance activity as tolerated Non-emergency contact: Primary Care Provider Call non-emergency contact if: you have any medication questions and your symptoms worsen Follow-up/Referrals: Rajeev Harkins [Primary Care Provider] - 06/01/20 11:45 am (IN [facility]) Diet: Heart Healthy Addtl Attending Provider Instructions: Please follow up with your family physician within a week Please follow up with Dr. Beckman as scheduled. You are started on two new medicine - Eliquis take 10mgs twice a day and then 1 tablet twice a day - Metoprolol twice a day Please discuss with your family physician about getting sleep study. Pending Studies at Discharge: No Stand-Alone Forms: My [facility] [employer], Smoking Cessation Medications and DC Order Prescriptions: New metoprolol tartrate 50 mg Tablet 50 mg PO BID Qty: 60 RF: 0 apixaban 5 mg tablet 5 mg PO BID Qty: 74 RF: 0 Continued losartan 50 mg Tablet 50 mg PO QAM RF: 0 alprazolam 0.5 mg Tablet 0.5 mg PO HS RF: 0 hydrochlorothiazide 12.5 mg Tablet 12.5 mg PO QAM RF: 0 glucosamine HCl 1,500 mg Tablet 1,500 mg PO DAILY RF: 0 diphenhydramine HCl [Sleep Aid (diphenhydramine)] 50 mg Capsule 50 mg PO HS RF: 0 famotidine 20 mg Tablet 20 mg PO HS RF: 0 cholecalciferol (vitamin D3) [Vitamin D3] 25 mcg (1,000 unit) Tablet 25 mcg PO QAM RF: 0 melatonin 5 mg Tablet 5 mg PO HS RF: 0 turmeric 400 mg Capsule 500 mg PO DAILY RF: 0 montelukast 10 mg Tablet 10 mg PO QAM RF: 0 oxycodone 5 mg Tablet 5 mg PO Q4H PRN (Reason: pain) Qty: 30 RF: 0 garlic 500 mg Capsule 500 mg PO DAILY RF: 0 albuterol sulfate 90 mcg/actuation Hfa Aerosol Inhaler 2 puff INHALATION DIRECTED PRN (Reason: Shortness Of Breath Or Wheezing) RF: 0 potassium gluconate 600 mg (99 mg) Tablet 600 mg PO DAILY RF: 0 Discontinued meloxicam 15 mg Tablet 15 mg PO QAM RF: 0 [place] 3-6-9 1,200 mg Capsule 1 cap PO DAILY RF: 0 aspirin 81 mg Tablet,Delayed Release (Dr/Ec) 81 mg PO BID 42 Days Qty: 0 RF: 0 Discharge Orders: Discharge Order (Routine); Ordered 05/21/20 Ordered By: Yvonne Gama/Other Patient Handouts: Embolism Pulmonary Dc, Apixaban oral tablets, Metoprolol tablets Admission Data Admit Date/Time: 05/19/20 19:03 Attending Provider: Yvonne Yoon Admit Provider: Jimy Sesay Primary Care Provider: Rajeev Harkins Other Providers: Juaquin Reynolds Other Interventions: Discharge Summary Assessment (RN) Last Done: 05/21/20 12:00
[2020-05-21] MEDS ORDERED: APIXABAN 5 MG TABLET PO ONE (12:30)
== END 2020-05-21 13:00 | disposition home or self-care (01) | DRG 176 ==
LOC: ED 12:32 → SUATTDRO 19:03 → 2S 19:03

== ENCOUNTER 2020-12-17 09:58 | Observation (INO) ==
--- NOTE | 2020-12-01 09:11 | Anesthesiology Consultation ---
Date of Service December 01, 2020 Assessment & Plan (1) Encounter for pre-operative examination: Chart Review Chart Review: Acceptable Risk for Surgery (pending preop Covid testing results ) and Patient NOT seen in Pre Admission Testing Pt initially scheduled for surgery 11/12/20- was considered for Outpatient [facility] Program due to Covid surge but upon evaluation preop DOS- it was felt that patient would be better suited as inpatient TKA (secondary to post op PE/DVT in 04/2020)- patient's surgery rescheduled to 12/24/20. Per nursing assessment 11/30/2020, patient denies any recent travel. No known Covid infection in the past 90 days. No known Covid positive contacts or Covid related symptoms. Preop Covid testing scheduled 12/13/20= will await results. VARINDER 05/14/20= Done under SAB x 1 attempt. No complications per records*. Some HTN in PACU, 179/102, noted. (*No anesthesia-related complications -- patient did have post-op extensive PE for which he was admitted on 05/19/20. Now on Eliquis. Aware to stop 3 days prior to surgery for SAB per PAT consultation 11/03/20). History Surgery Operation Date: 12/17/20 13:00 Proposed Procedures p Left Total Knee Arthroplasty(Left) - Jeff Beckman, Height/Weight Height: 5 ft 11 in Weight: 127.006 kg Allergies Allergy/AdvReac Type Severity Reaction Status Date / Time ampicillin Allergy Unknown AT [facility] Verified 11/30/20 16:51 AGE - RASH / BLISTERS Medications Home Medications Medication Instructions Recorded Confirmed Last Taken alprazolam 0.5 mg PO HS 04/29/20 11/30/20 11/10/20 23:45 cholecalciferol (vitamin D3) 25 mcg PO QAM 04/29/20 11/30/20 11/11/20 07:00 [Vitamin D3] diphenhydramine HCl [Sleep Aid 50 mg PO HS 04/29/20 11/30/20 11/11/20 23:00 (diphenhydramine)] famotidine 20 mg PO HS 04/29/20 11/30/20 11/11/20 19:00 hydrochlorothiazide 12.5 mg PO QAM 04/29/20 11/30/20 10/22/20 07:00 losartan 50 mg PO QAM 04/29/20 11/30/20 11/11/20 07:00 melatonin 5 mg PO HS 04/29/20 11/30/20 11/11/20 23:00 montelukast 10 mg PO QAM 04/29/20 11/30/20 11/11/20 07:00 turmeric 500 mg PO QAM 04/29/20 11/30/20 11/11/20 07:00 albuterol sulfate 2 puff INHALATION DIRECTED PRN 05/19/20 11/30/20 11/11/20 16:00 potassium gluconate 600 mg PO QAM 05/19/20 11/30/20 11/11/20 07:00 apixaban 5 mg PO BID #74 tab 05/21/20 11/30/20 11/08/20 07:00 metoprolol tartrate 50 mg PO BID #60 tab 05/21/20 11/30/20 11/11/20 20:30 methylprednisolone 4 mg tablets in 4 mg PO UD #1 packet 07/26/20 11/30/20 10/25/20 07:00 a dose pack oxycodone-acetaminophen 5 mg-325 1 tab PO Q6H PRN #20 tab 10/06/20 11/30/20 11/10/20 14:00 mg tablet acetaminophen [Tylenol Arthritis] 1,300 mg PO Q12H 10/27/20 11/30/20 11/11/20 18:00 fluticasone propion-salmeterol 1 puff INHALATION BID 10/27/20 11/30/20 11/12/20 05:00 [Advair HFA] magnesium 250 mg PO QAM 10/27/20 11/30/20 11/11/20 07:00 rosuvastatin 5 mg PO QAM 10/27/20 11/30/20 11/11/20 07:00 tamsulosin 0.4 mg PO QAM 10/27/20 11/30/20 11/11/20 07:00 celecoxib 200 mg capsule 200 mg PO BID #14 cap 11/11/20 11/30/20 11/11/20 07:00 ondansetron HCl 4 mg tablet 4 mg PO Q8H PRN #10 tab 11/11/20 11/30/20 Unknown oxycodone-acetaminophen 5 mg-325 1 tab PO Q6H PRN #30 tab 11/11/20 11/30/20 Unknown mg tablet meloxicam 15 mg PO QAM 11/30/20 11/30/20 Unknown Past Medical History Medical History (Updated 12/01/20 @ 15:18 by Marci Sparks PA-C) Acid reflux Mostly controlled Asthma Advair daily, albuterol rescue inhaler around once per day or less Atrial fibrillation with rapid ventricular response In the setting of acute extensive PE provoked by stasis after hip replacement Enlarged prostate Environmental allergies HAY FEVER History of skin cancer REMOVED HTN (hypertension) Neck pain WENT TO [facility] RECENTLY IN [place]-IMPROVING Osteoarthritis Pulmonary embolism Extensive PE in post op (Post op Day 5) setting (from left VARINDER on 05/14/20) while on prophylactic aspirin BID - says he was compliant with meds. Was sedentary and didn't use QUINN stocking - would consider provoked. Seen in ER on 05/19/20 for PE- has been on Eliquis since that time Snores NO HX SLEEP STUDY, REPORTS POOR SLEEP Urinary frequency IMPROVING., PCP MONITORING Past Family History Family History Other Family history of diabetes mellitus in daughter Past Surgical History Surgical History History of arthroscopy of left knee History of arthroscopy of right knee History of colonoscopy History of endoscopy History of esophagogastroduodenoscopy (EGD) History of left hip replacement History of toe surgery L GREAT TOE PLATE /SCREWS Social History Smoking Status: Light tobacco smoker tobacco type: cigars Smoking cigarettes per day: occ cigar Do You Dip or Chew Tobacco: No Hx Alcohol Use: Yes Alcohol type: beer, wine and hard liquor alcohol intake frequency: a few times a week Hx Substance Use: Yes substance use type: prescription drug Lab Results Anesthesia Preop Results Results Anesthesia Widget: WBC 4.91 K/uL (4.8-10.8) 11/03/20 Hgb 14.4 g/dL (14.0-18.0) 11/03/20 Hct 42.5 % (42-52) 11/03/20 Plt 220 K/uL (130-400) 11/03/20 Na 141 mmol/L (136-145) 11/03/20 K 4.3 mmol/L (3.5-5.1) 11/03/20 Cl 111 mmol/L (98-107) H 11/03/20 CO2 29 mmol/L (21-32) 11/03/20 BUN 19 mg/dl (7-18) H 11/03/20 Creat 0.91 mg/dl (0.6-1.4) 11/03/20 Glucose Level 114 mg/dl (70-99) H 11/03/20 PT 11.3 Seconds (9.0-12.0) 11/03/20 PTT 27.9 Seconds (21.0-31.0) 11/03/20 INR 1.1 (0.9-1.1) 11/03/20 Blood Type O Negative 11/03/20 Antibody Screen NEGATIVE 11/03/20 Testing Electrocardiogram Date: 11/03/20 Findings: + NSR @ (60bpm) Left axis deviation. Incomplete right bundle branch block. Compared to EKG from 05/19/2020, atrial flutter is no longer present. Chest X-Ray Date: 11/03/20 Findings: + NAD Echocardiogram Date: 05/21/20 EF: 60-65% LV Function: normal RWMA: + none LV systolic function is normal. There is normal LV wall thickness and wall motion. Right ventricle is mildly dilated. RA mildy dilated. Trace tricuspid regurgitation. RVSP is elevated at 30-40 mmHg. Normal inferior vena cava diameter respiratory variation suggesting normal central venous pressure. *Echo done in the setting of acute PE with atrial flutter.
--- NOTE | 2020-12-16 12:59 | History & Physical Report ---
Date of Service December 16, 2020 Assessment & Plan (1) Left knee DJD: We will proceed with a left total knee arthroplasty. Postoperatively he will be placed back on Eliquis for DVT prophylaxis and kept overnight in the hospital for postoperative medical management. He plans to use energy physical therapy upon discharge. History of Present Illness Chief Complaint: Osteoarthritis of the left knee. Primary Care Provider: Mark Maldonado DO Gomez is a pleasant 70-year-old male who is about 6 months status post left total hip arthroplasty. He has been doing well with his left hip, unfortunately been having a lot of pain in his left knee. X-rays and clinical examination have been diagnostic for advanced osteoarthritis of the left knee. After failing conservative treatment, he has elected proceed with a left total knee arthroplasty. He does have a history of a left knee arthroscopy in 2001. 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 He has been on Eliquis for that. His medical doctors feel it is safe to proceed with knee replacement surgery. . Allergies Allergy/AdvReac Type Severity Reaction Status Date / Time ampicillin Allergy Intermediate AT [facility] Verified 12/14/20 10:02 AGE - RASH / BLISTERS Home Medications Medication Instructions Recorded Confirmed Type alprazolam 0.5 mg PO HS 04/29/20 11/30/20 History cholecalciferol (vitamin D3) 25 mcg PO QAM 04/29/20 11/30/20 History [Vitamin D3] diphenhydramine HCl [Sleep Aid 50 mg PO HS 04/29/20 11/30/20 History (diphenhydramine)] famotidine 20 mg PO HS 04/29/20 11/30/20 History hydrochlorothiazide 12.5 mg PO QAM 04/29/20 11/30/20 History losartan 50 mg PO QAM 04/29/20 11/30/20 History melatonin 5 mg PO HS 04/29/20 11/30/20 History montelukast 10 mg PO QAM 04/29/20 11/30/20 History turmeric 500 mg PO QAM 04/29/20 11/30/20 History albuterol sulfate 2 puff INHALATION DIRECTED PRN 05/19/20 11/30/20 History potassium gluconate 600 mg PO QAM 05/19/20 11/30/20 History apixaban 5 mg PO BID #74 tab 05/21/20 11/30/20 Rx metoprolol tartrate 50 mg PO BID #60 tab 05/21/20 11/30/20 Rx methylprednisolone 4 mg tablets in 4 mg PO UD #1 packet 07/26/20 11/30/20 Rx a dose pack oxycodone-acetaminophen 5 mg-325 1 tab PO Q6H PRN #20 tab 10/06/20 11/30/20 Rx mg tablet acetaminophen [Tylenol Arthritis] 1,300 mg PO Q12H 10/27/20 11/30/20 History fluticasone propion-salmeterol 1 puff INHALATION BID 10/27/20 11/30/20 History [Advair HFA] magnesium 250 mg PO QAM 10/27/20 11/30/20 History rosuvastatin 5 mg PO QAM 10/27/20 11/30/20 History tamsulosin 0.4 mg PO QAM 10/27/20 11/30/20 History celecoxib 200 mg capsule 200 mg PO BID #14 cap 11/11/20 11/30/20 Rx ondansetron HCl 4 mg tablet 4 mg PO Q8H PRN #10 tab 11/11/20 11/30/20 Rx oxycodone-acetaminophen 5 mg-325 1 tab PO Q6H PRN #30 tab 11/11/20 11/30/20 Rx mg tablet meloxicam 15 mg PO QAM 11/30/20 11/30/20 History Past Med/Surg History Medical History Acid reflux Mostly controlled Asthma Advair daily, albuterol rescue inhaler around once per day or less Atrial fibrillation with rapid ventricular response In the setting of acute extensive PE provoked by stasis after hip replacement Enlarged prostate Environmental allergies HAY FEVER History of skin cancer REMOVED HTN (hypertension) Neck pain WENT TO [facility] RECENTLY IN [place]-IMPROVING Osteoarthritis Pulmonary embolism Extensive PE in post op (Post op Day 5) setting (from left VARINDER on 05/14/20) while on prophylactic aspirin BID - says he was compliant with meds. Was sedentary and didn't use QUINN stocking - would consider provoked. Seen in ER on 05/19/20 for PE- has been on Eliquis since that time Snores NO HX SLEEP STUDY, REPORTS POOR SLEEP Urinary frequency IMPROVING., PCP MONITORING Surgical History History of arthroscopy of left knee History of arthroscopy of right knee History of colonoscopy History of endoscopy History of esophagogastroduodenoscopy (EGD) History of left hip replacement History of toe surgery L GREAT TOE PLATE /SCREWS Family History Other Family history of diabetes mellitus in daughter Social History Smoking Status: Light tobacco smoker Cigarettes Per Day: occ cigar; Second Hand Exposure: No; Hx Alcohol Use: Yes Alcohol type: beer, wine and hard liquor Hx Substance Use: Yes Preferred Language: Setswana Communication Ability: Effective Dealmaker Required: No Beliefs That Will Affect Care: None marital status: Current Living Situation: Spouse Feels Safe at Home: Yes Assistive Devices: Brace/Splint/Immobilizer and Glasses Review of Systems All systems reviewed & are unremarkable except as noted in HPI & below. Physical Exam On physical examination of the left knee, he has a slight varus deformity. Is good motion of 0 to 120 degrees. He has a trace effusion. He has pain over the distal femoral condyles.. Constitutional WD/WN, vitals as above Eyes PERRL, conjunctivae normal, anicteric sclerae ENMT external ear and nose normal, oropharynx normal Neck trachea midline, no thyromegaly Respiratory normal respiratory effort Cardiovascular RRR, no murmur, no edema Gastrointestinal (Abdomen) normal bowel sounds, soft, nontender, no hepatosplenomegaly Psychiatric A+Ox3, euthymic affect Results & Data Results & Data Laboratory Results . Diagnostic Findings X-rays of the left knee do show advanced osteoarthritis with joint space narrowing osteophyte formation, and [id number] articulation. PG Care Time/CCT Total # of Minutes Spent Total Time Spent with Patient: Total time spent is greater than 50% in coordination of care (as documented) at patient's floor/unit and/or counseling patient: Coding Level of Care Code None Diagnoses Left knee DJD M17.12
[~2020-12-17 09:58] MED LIST changes: -*ANCEF*ALLERGY NOTED TO ORDERED MEDICATION SCH; +BUPIVACAINE 0.25% PF 30 ML VIAL ONE; +EPINEPHrine INJ 1 MG/ML AMP ONE; +ROPIVACAINE 0.5% 5 MG/ML 30 ML VIAL ONE; -ROPIVACAINE 0.5% HCL/PF 150 MG, BUPIVACAINE 0.5% MPF 30 ML, EPINEPHrine 30MG/30ML (OR U... INSTIL SCH; +ROPIVACAINE 0.5% HCL/PF 150 MG, BUPIVACAINE 0.75% MPF 20 ML, EPINEPHrine 30MG/30ML (OR ... INFIL SCH; -ceFAZolin 2000MG 2,000 MG/15 ML SYR IV SCH
--- NOTE | 2020-12-17 11:35 | History & Physical Bridge Note ---
Date of Service December 17, 2020 History & Physical Bridge Note I have examined the patient, reviewed the History & Physical and in the interval since the performance of the History & Physical I have noted the following changes of clinical significance: no changes noted
[2020-12-17] MEDS ORDERED: ORTHO JOINT ANESTHETIC ONE (11:42)
[2020-12-17] MEDS ORDERED: PROPOFOL IV EMULSION 10 MG/ML 20 ML VIAL IV ONE ×2 (11:52→14:51)
[2020-12-17] MEDS ORDERED: LIDOCAINE 2% 2 ML VIAL/AMP(20MG/ML) INFIL ONE (11:52)
[2020-12-17] MEDS ORDERED: MIDAZOLAM HCL 1 MG/ML 2ML VIAL ONE (11:53)
[2020-12-17] MEDS ORDERED: ePHEDrine sulfate 50 MG/ML AMP IV PRN (12:09)
[2020-12-17] MEDS ORDERED: ATROPINE SULFATE 0.1 MG/ML 10ML SYR IV PRN (12:09)
[2020-12-17] MEDS ORDERED: fentaNYL citrate PF 100 MCG/2 ML VIAL IV PRN (12:09)
[2020-12-17] MEDS ORDERED: ONDANSETRON INJ 2 MG/ML 2 ML VIAL IV PRN ×2 (12:09→16:01)
--- NOTE | 2020-12-17 14:37 | Operative Report ---
PG Post Operative Report Pre & Post Diagnosis Operation Date: 12/17/20 13:00 Pre-Op Diagnosis: Degenerative Joint Disease Left Knee Post-Op Diagnosis: Degenerative Joint Disease Left Knee I identified the patient and participated in the time-out.: Yes Procedure Operation Date: 12/17/20 13:00 Actual Procedures p Left Total Knee Arthroplasty, Cemented(Left) - Jeff Beckman DO Surgeon Jeff Beckman DO Environmental Test Technician Quinn Gupta PAC Estimated Blood Loss 20 Findings Consistent with Post-Op Diagnosis Specimens Left femoral and tibial bone Complications none Disposition Disposition: Recovery Room Indications Jason is a pleasant 70-year-old male who is been dealing with chronic increasing left knee pain. X-rays and clinical examination have been diagnostic for advanced osteoarthritis of the left knee. After failing conservative treatment, he elected proceed with a left total knee arthroplasty. Description of Procedure Implants used: I used a Michael Persona total knee arthroplasty system with a size 12 standard femur, G tibia, 35 patella, and a size 11 medial congruent polyethylene bearing. All components were cemented in place with Simplex HV cement. Jason arrived [facility] for the above procedure. He was seen in the preoperative holding area and the operative extremity was identified and signed. He was given a preoperative antibiotic, TXA, a spinal anesthetic and an adductor nerve block. He was taken back to the operating room and laid on the table in supine position. He was given basic sedation. The operative knee was then prepped and draped in sterile fashion. A timeout was done, and the patient and the operative extremity was properly identified. A midline incision was made directly over the patella. Dissection was taken down to the extensor mechanism. A subvastus arthrotomy was used. The medial retinaculum was released and the fat pad was mostly excised. The knee was flexed and the ACL, PCL, and meniscus were removed. A drill was sent down the center of the femoral canal followed by an intramedullary delroy. Off that delroy a distal femoral cutting block was placed. 9 mm was resected off the distal femur at 5 of valgus. A posterior referencing AP sizing guide was then placed on the distal femur. The femur measured to be a size 12. 2 drill holes were placed in 3 of external rotation. A 4-in-1 cutting block was then impacted into place. Anterior, posterior, and chamfer cuts were then made. The proximal tibia was then exposed. An external tibial alignment guide was placed. A tibial cut guide was then anchored in place and the proximal tibia was then resected. The posterior aspect of the knee was then opened up and any additional meniscus fragments and osteophytes were removed. The tibia measured to be a size G. The tibial plate was then placed in the appropriate rotation and the tibia was drilled and punched. Trial components were then placed. I used a size 11 medial congruent polyethylene insert. The knee was brought through a full range of motion and felt to be stable. The peg holes for the femoral component were then drilled. The patella was then everted and 9 mm was resected off the posterior aspect of the patella. The patella measured to be a size 35. 3 peg holes were then drilled. A trial patella was placed. The knee was once again brought through a full range of motion and felt to be stable. Trial components were then removed. The surrounding soft tissues were injected with 100 cc of an orthopedic pain control cocktail. All components were then cemented into place with Simplex HV cement. The final polyethylene insert was then snapped into place. Once cement was dry the tourniquet was deflated. Hemostasis was obtained. A dilute betadyne lavage was then done for 3 minutes. The joint was then irrigated with normal saline solution. The subvastus arthrotomy was then closed with #1 Vicryl suture. The skin was closed with 2-0 Vicryl, 3-0V lock suture, and jamison. A Silverlon and a soft compressive dressing were placed. He was then transferred to a hospital bed and taken to the postanesthesia care unit in stable condition. He tolerated the procedure we ll. Quinn Gupta PA-C, was present for the entire procedure. He was critical for patient positioning, prepping, draping, retraction exposure, wound closure and application of sterile dressing. I attest to the content of the Intraoperative Record and any orders documented therein. Any exceptions are noted below.
--- NOTE | 2020-12-17 15:25 | XRay Report ---
XR knee LT 1 or 2V routine CLINICAL HISTORY: Postoperative evaluation. COMPARISON: Knee radiographs November 03, 2020. FINDINGS: Alignment of the total left knee arthroplasty is anatomic. There is no periprosthetic frac ture or unexpected radiopaque foreign body. There are skin jamison. IMPRESSION: Expected findings following total left knee arthroplasty. ACT 112: Negative or not required by law. Electronically signed by: Aj Grande M.D. 12/17/2020 3:24 PM
--- NOTE | 2020-12-17 15:28 | Anesthesiology Progress Note ---
Date of Service December 17, 2020 Anesthesia Post Procedure Vital Signs Vital Signs: Temp Pulse Pulse Resp BP Pulse Ox 12/17/20 15:25 36.3 C L 56 L 17 120/70 94 12/17/20 15:15 36.3 C L 59 L 13 126/75 94 12/17/20 15:05 62 17 101/65 99 12/17/20 14:55 63 22 124/77 99 12/17/20 14:46 36.1 C L 66 18 114/71 97 12/17/20 10:54 36.6 C 59 L 20 149/85 H 94 Pain Intensity Left Knee: Pain Intensity: 2 Transfer of Care Handoff Completed per policy Notes Mental Status: alert / awake / arousable and participated in evaluation Nausea / Vomiting: adequately controlled Pain: adequately controlled Airway Patency, RR, SpO2: stable & adequate BP & HR: stable & adequate Hydration State: stable & adequate Neuraxial Anesthesia: was administered and sensory block is resolving Anesthetic Complications: no major complications apparent and Pt Satisfied with anesthetic care
[2020-12-17] MEDS ORDERED: bisacodyL 10 MG SUPP PR PRN (16:01)
[2020-12-17] MEDS ORDERED: MAGNESIUM HYDROXIDE SUSP 30 ML UDC PO PRN (16:01)
[2020-12-17] MEDS ORDERED: HYDROmorphone INJ 0.5 MG/0.5 ML SYR IV PRN (16:01)
[2020-12-17] MEDS ORDERED: ALBUTEROL HFA 8 GM INHALER INH PRN (16:01)
[2020-12-17] MEDS ORDERED: NALOXONE HCL 0.4 MG/1 ML VIAL/CARP IV PRN (16:01)
[2020-12-17] MEDS ORDERED: METOCLOPRAMIDE HCL INJ 5 MG/ML 2 ML VIAL IV PRN (16:01)
[2020-12-17] MEDS ORDERED: oxyCODONE HCL IR 5 MG TAB (IMMEDIATE RELEASE) PO PRN (16:01)
[2020-12-17] MEDS: SODIUM CHLORIDE 0.9% 1,000 ML IV SCH (18:08)
[2020-12-17] MEDS: ACETAMINOPHEN 325 MG TAB PO SCH ×2 (18:10→23:47)
[2020-12-17] MEDS: KETOROLAC TROMETHAMINE 15 MG/ML VIAL IV SCH ×2 (18:11→22:26)
[2020-12-17] MEDS: METOPROLOL TARTRATE 50 MG TAB PO SCH (20:41)
[2020-12-17] MEDS: DOCUSATE SODIUM 100 MG CAP PO SCH (20:43)
[2020-12-17] MEDS: ceFAZolin 2000MG 2,000 MG/15 ML SYR IV SCH (20:43)
[2020-12-17] MEDS ORDERED: MELATONIN 3 MG TAB PO SCH (21:00)
[2020-12-17] MEDS ORDERED: diphenhydrAMINE Capsule 25 MG CAP PO SCH (21:00)
[2020-12-17] MEDS ORDERED: SENNA 8.6 MG TAB PO SCH (21:00)
[2020-12-17] MEDS ORDERED: FAMOTIDINE 20 MG TAB PO SCH (21:00)
[2020-12-17] MEDS ORDERED: ALPRAZolam 0.5 MG TABLET PO SCH (21:00)
[2020-12-18] MEDS: KETOROLAC TROMETHAMINE 15 MG/ML VIAL IV SCH ×2 (05:43→10:10)
[2020-12-18] MEDS: ACETAMINOPHEN 325 MG TAB PO SCH ×2 (05:43→11:45)
[2020-12-18] MEDS: ceFAZolin 2000MG 2,000 MG/15 ML SYR IV SCH (05:44)
--- NOTE | 2020-12-18 07:27 | Orthopedic Progress Note ---
Date of Service December 18, 2020 Assessment & Plan (1) Status post left knee replacement: Overall is doing very well. Is not having much pain in the left knee. He will be seen by physical therapy today for ambulation and range of motion exercises. He is on Eliquis for DVT prophylaxis. He can be discharged to home later today. He will follow-up with orthopedics in 2 weeks. Costa Julio was seen and examined at bedside this morning. Overall he is doing very well. Is not having much pain in the left knee. He has been ambulating into the hallways. He has no complaints.. Review of Systems All systems reviewed & are unremarkable except as noted in HPI & below. Physical Exam On physical examination of the left knee, the dressing has been changed and is clean and dry. His leg is out full extension. He has active dorsiflexion plantarflexion of his left ankle.. Results & Data Results & Data Laboratory Results . Diagnostic Findings Postoperative x-rays of the left knee show the prosthesis to be in anatomic alignment without any evidence of fracture, dislocation, or loosening. PG Care Time/CCT Total # of Minutes Spent Total Time Spent with Patient: Total time spent is greater than 50% in coordination of care (as documented) at patient's floor/unit and/or counseling patient: Coding Level of Care Code 76239 Post Operative Follow-Up Diagnoses Status post left knee replacement Z96.652
--- NOTE | 2020-12-18 07:28 | Discharge Summary ---
Date of Service December 18, 2020 Admission HPI (Per Admitting) Jason is a pleasant 70-year-old male who is about 6 months status post left total hip arthroplasty. He has been doing well with his left hip, unfortunately been having a lot of pain in his left knee. X-rays and clinical examination have been diagnostic for advanced osteoarthritis of the left knee. After failing conservative treatment, he has elected proceed with a left total knee arthroplasty. He does have a history of a left knee arthroscopy in 2001. 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 He has been on Eliquis for that. His medical doctors feel it is safe to proceed with knee replacement surgery. . Admission Exam (Per Admitting) On physical examination of the left knee, he has a slight varus deformity. Is good motion of 0 to 120 degrees. He has a trace effusion. He has pain over the distal femoral condyles.. Principal Diagnosis Same as "Discharge Diagnosis" noted below under Discharge Instructions. Discharge Exam On physical examination of the left knee, the dressing has been changed and is clean and dry. His leg is out full extension. He has active dorsiflexion plantarflexion of his left ankle.. Discharge Data Procedures Performed Operation Date: 12/17/20 13:00 Actual Procedures p Left Total Knee Arthroplasty, Cemented(Left) - Jeff Beckman DO Ordered Studies 12/17/20 05:00 US - OR guided needle placemen Routine Hospital Course (1) Status post left knee replacement: On December 17, 2020 Sumanth arrived at [facility] and underwent a left total knee arthroplasty without complication. He had a spinal anesthetic. Postoperatively he was started back on Eliquis for DVT prophylaxis and transferred to the general orthopedic floors. His hospital course was uneventful. On postop day #1 his vital signs are stable and his pain was well controlled. He was able to participate well with physical therapy doing ambulation and range of motion exercises. He was then discharged to home. He will follow-up with orthopedics in 2 weeks. PG Care Time/CCT Total # of Minutes Spent Total Time Spent with Patient: Total time spent is greater than 50% in coordination of care (as documented) at patient's floor/unit and/or counseling patient: Discharge Plan Discharge Items Patient Disposition: Home - Home Health Services Reason For Visit: DJD Left Knee Discharge Diagnosis: Left knee replacement Activity: As commented below Non-emergency contact: Surgeon Call non-emergency contact if: your wound has increased redness and your wound has increased drainage Follow-up/Referrals: Mark Maldonado DO [Primary Care Provider] - Diet: Regular Addtl Attending Provider Instructions: Activity and Therapy Recommendations: * If you are using [facility] then therapy will be provided at your home until they feel you have accomplished all of your goals. * If you are using [facility] then Physical Therapy will be provided until they feel you are ready to start Outpatient Physical Therapy. * If you are not using home therapy then Outpatient Physical Therapy should start about 3-5 days from your day of surgery. Therapy will last about 6-10 weeks * It is important not to put a pillow under your knee when you are relaxing or sleeping. It is just as important to make sure you are getting your knee perfectly straight as it is to regain your knee bend. * You were shown a series of exercises in the hospital. Do these exercises three times each day including the exercises you were shown in physical therapy. * Get up and walk several times each day. For the first four weeks, try not to stand or walk for more than one hour at a time. If you do stand or walk for more than one hour, you will not hurt anything, but your leg will likely swell. * As you feel comfortable, you may change from the walker or crutches to a cane and then to independent walking. Medications: * Narcotic You will likely be sent home from the hospital with a prescription for the narcotic pain medication that worked best throughout your stay. * Aspirin Most patients will be required to take Aspirin 81mg twice a day for 6 weeks after surgery. This is obtained [id number] and a prescription is not necessary. * Other medications may be prescribed for specific circumstances. If you have any questions, please call the office at . * Resume previous home medications unless otherwise instructed TEDs/Elastic Stockings: The white elastic stockings help limit swelling and prevent blood clots from forming in your legs.~ The more you wear them, the more they work. Wear them for six weeks. Dressing Care: You may remove the dressing after physical therapy on postop day #1. You may then do daily dry dressing changes. If the incision is not draining then you may leave the jamison open to air. If there is a little bit of drainage or if the jamison are getting stuck on your clothing then cover the incision with a dry dressing. The jamison will be removed at your 2 week follow-up appointment. Showering: You may now shower 5 days from the day of surgery. You may shower with the jamison exposed. Let soapy water run over the jamison and pat them dry. Do not scrub or soak the incision. Things To Watch For: * Drainage from the incision site that occurs more than one week after your surgery. * Increased redness at the incision site. * Fever above 102 degrees Fahrenheit. * Unusual chest pain or shortness of breath. * Call [facility] at with any of the above problems Follow-Up Visit: Follow-up with Dr. Beckman's PA (Jeff Barth) 2-3 weeks after your day of surgery. He will remove your jamison and answer any questions. If you have any additional questions or concerns, Dr Beckman is usually in the office at the same time and will be available An appointment was probably scheduled when you signed-up for surgery in the office. If you have any questions call Office Instructions: More detailed instructions as well as Frequently Asked Questions were provided in a folder by our office when you signed-up for surgery. Please review these instructions when you get home. If you have any further questions or concerns, please feel free to call the office at [phone] Pending Studies at Discharge: No Stand-Alone Forms: My [facility] Medications and DC Order Prescriptions: Continued methylprednisolone 4 mg tablets,dose pack 4 mg PO UD Qty: 1 RF: 0 losartan 50 mg Tablet 50 mg PO QAM RF: 0 alprazolam 0.5 mg Tablet 0.5 mg PO HS RF: 0 hydrochlorothiazide 12.5 mg Tablet 12.5 mg PO QAM RF: 0 diphenhydramine HCl [Sleep Aid (diphenhydramine)] 50 mg Capsule 50 mg PO HS RF: 0 famotidine 20 mg Tablet 20 mg PO HS RF: 0 cholecalciferol (vitamin D3) [Vitamin D3] 25 mcg (1,000 unit) Tablet 25 mcg PO QAM RF: 0 melatonin 5 mg Tablet 5 mg PO HS RF: 0 turmeric 400 mg Capsule 500 mg PO QAM RF: 0 montelukast 10 mg Tablet 10 mg PO QAM RF: 0 magnesium 250 mg Tablet 250 mg PO QAM RF: 0 rosuvastatin 5 mg Tablet 5 mg PO QAM RF: 0 tamsulosin 0.4 mg Capsule 0.4 mg PO QAM RF: 0 acetaminophen [Tylenol Arthritis] 650 mg Tablet Extended Release 1,300 mg PO Q12H RF: 0 Advair HFA 115-21 mcg/actuation Hfa Aerosol Inhaler 1 puff INHALATION BID RF: 0 albuterol sulfate 90 mcg/actuation Hfa Aerosol Inhaler 2 puff INHALATION DIRECTED PRN (Reason: Shortness Of Breath Or Wheezing) R F: 0 potassium gluconate 600 mg (99 mg) Tablet 600 mg PO QAM RF: 0 metoprolol tartrate 50 mg Tablet 50 mg PO BID Qty: 60 RF: 0 oxycodone-acetaminophen [Percocet] 5-325 mg tablet 1 tab PO Q6H PRN (Reason: pain) Qty: 30 RF: 0 Changed apixaban 5 mg tablet 2.5 mg PO BID 28 Days Qty: 56 RF: 0 Discharge Orders: Discharge Order (Routine); Ordered 12/18/20 Ordered By: Jeff Beckman Admission Data Admit Date/Time: 12/17/20 14:41 Attending Provider: Jeff Beckman Admit Provider: Jeff Beckman Primary Care Provider: Mark Maldonado
[2020-12-18] MEDS ORDERED: dexAMETHasone 4 MG TAB PO SCH (08:00)
[2020-12-18] MEDS: SODIUM CHLORIDE 0.9% 1,000 ML IV SCH (08:35)
[2020-12-18] MEDS: METOPROLOL TARTRATE 50 MG TAB PO SCH (08:43)
[2020-12-18] MEDS: DOCUSATE SODIUM 100 MG CAP PO SCH (08:45)
[2020-12-18] MEDS ORDERED: APIXABAN 2.5 MG TAB PO SCH (09:00)
[2020-12-18] MEDS ORDERED: TAMSULOSIN HCL 0.4 MG CAP PO SCH (09:00)
[2020-12-18] MEDS ORDERED: CHOLECALCIFEROL 1,000 UNITS 25 MCG TAB PO SCH (09:00)
[2020-12-18] MEDS ORDERED: MAGNESIUM OXIDE 400 MG TAB PO SCH (09:00)
[2020-12-18] MEDS ORDERED: hydroCHLOROthiazide 25 MG TAB PO SCH (09:00)
[2020-12-18] MEDS ORDERED: MONTELUKAST SODIUM 10 MG TABLET PO SCH (09:00)
[2020-12-18] MEDS ORDERED: NON-FORMULARY MEDICATION (Turmeric 400 mg Capsule) PO SCH (09:00)
[2020-12-18] MEDS ORDERED: FLUTICASONE/VILANTEROL 100/25MCG 14 PUFFS/INHALER INH SCH (09:00)
[2020-12-18] MEDS ORDERED: NON-FORMULARY MEDICATION (Potassium Gluconate 600 mg (99 mg) Tablet) PO SCH (09:00)
[2020-12-18] MEDS ORDERED: MULTIVITAMIN TAB PO SCH (09:00)
[2020-12-18] MEDS ORDERED: ROSUVASTATIN CALCIUM 5 MG TAB PO SCH (09:00)
[2020-12-18] MEDS ORDERED: LOSARTAN POTASSIUM 50 MG TAB PO SCH (09:00)
--- NOTE | 2020-12-18 10:35 | Anesthesiology Progress Note ---
Date of Service December 18, 2020 Anesthesia Post Procedure Vital Signs Vital Signs: Temp Pulse Pulse Resp BP Pulse Ox 12/18/20 07:40 36.6 C 64 16 156/78 H 95 12/18/20 03:40 36.5 C 65 16 158/83 H 96 12/17/20 22:59 36.4 C L 70 18 163/80 H 95 12/17/20 19:00 36.4 C L 67 16 151/87 H 94 12/17/20 17:56 65 16 146/83 H 96 12/17/20 17:00 65 16 152/85 H 95 12/17/20 16:28 60 16 125/72 93 12/17/20 16:02 36.6 C 59 L 18 127/75 94 12/17/20 15:45 36.3 C L 57 L 11 L 120/58 L 94 12/17/20 15:35 36.3 C L 56 L 16 119/66 96 12/17/20 15:25 36.3 C L 56 L 17 120/70 94 12/17/20 15:15 36.3 C L 59 L 13 126/75 94 12/17/20 15:05 62 17 101/65 99 12/17/20 14:55 63 22 124/77 99 12/17/20 14:46 36.1 C L 66 18 114/71 97 12/17/20 10:54 36.6 C 59 L 20 149/85 H 94 Pain Intensity Left Knee: Pain Intensity: 4 Transfer of Care Handoff Completed per policy Notes Mental Status: alert / awake / arousable and participated in evaluation Nausea / Vomiting: adequately controlled Pain: adequately controlled Airway Patency, RR, SpO2: stable & adequate BP & HR: stable & adequate Hydration State: stable & adequate Neuraxial Anesthesia: was administered and sensory block resolved Anesthetic Complications: no major complications apparent and Pt Satisfied with anesthetic care
== END 2020-12-18 12:14 | disposition home health service (06) ==
LOC: ASU 09:58 → 3E 09:58

== ENCOUNTER 2021-01-07 13:03 | Inpatient (IN) ==
[2021-01-07] MEDS ORDERED: dilTIAZem HCl 5 MG/ML 5 ML VIAL IV STA (14:01)
[2021-01-07] MEDS ORDERED: SODIUM CHLORIDE 0.9% 1000ML 1,000 ML IV ONE (14:01)
[2021-01-07] MEDS ORDERED: STAT IV Infusion **Titration per Protocol STA (14:01)
--- NOTE | 2021-01-07 14:11 | Emergency Department Note ---
Impression & Plan SOB (shortness of breath), Atrial fibrillation with rapid ventricular response, Hypotension, History of left knee surgery ED Provider Note NAME: MONI LA AGE: 70 SEX: M : 1950 ARRIVES VIA: Walk-In INFORMANT: [Patient] ED PROVIDER(S): [Rony Horn MD] CHIEF COMPLAINT: Short of breath HISTORY OF PRESENT ILLNESS: The patient is a 70-year-old male presents to the ER with complaints of shortness of breath. The patient states that last April, he had surgery and afterwards, developed a PE. He has been on Eliquis ever since. The patient states that 3 weeks ago, he had left knee surgery. He has felt short of breath since the surgery. No chest pain or palpitations. He was concerned that he may have a PE, he presents for a work-up. The patient's left knee is doing pretty well since the surgery. He is able to walk without too much difficulty, sometimes uses a cane. He does have pedal edema but this is not uncommon for him. He has not had fever. No vomiting or diarrhea, no abdominal pain. The patient states he was off Eliquis for a very short timeframe when he had the surgery, he is taking all his medications as prescribed. He denies any history of A. fib, a flutter, SVT or coronary disease. He states his heart rate was fast though with his PE. REVIEW OF SYSTEMS: See HPI for pertinent positives and negatives. A total of ten systems were reviewed and were otherwise negative. PMHx/PSHx: See Below SOCIAL HISTORY: See Below. PHYSICAL EXAM: GENERAL: Patient is in no acute distress. HEENT: No acute trauma, normocephalic atraumatic, mucous membranes moist, no nasal congestion, no scleral icterus. NECK: No stridor, no adenopathy, no meningismus, trachea is midline. LUNGS: Clear to auscultation bilaterally, no wheeze, no rhonchi, breath sounds equal. HEART: Tachycardic, regular rhythm, no murmurs. ABDOMEN: Soft, nontender, bowel sounds positive, no hernias, no peritonitis. EXTREMITIES: No cyanosis, moderate bilateral pedal edema, full range of motion of all the joints without pain or difficulty, no signs for acute trauma. NEUROLOGIC: Oriented x 3, no acute motor or sensory deficits, no focal weakness. SKIN: No rash, no jaundice, no diaphoresis. DIFFERENTIAL DIAGNOSIS: Reactive airway disease, pneumonia, pneumothorax, COPD, CHF, infection, cardiac ischemia, SVT, ventricular tachycardia, atrial fibrillation or flutter, pulmonary embolism, bronchitis, musculoskeletal, gastrointestinal, as well as other pathologies. EMERGENCY DEPARTMENT COURSE/PROCEDURES: ECG: Indication was shortness of breath. The ECG shows a tachycardia with a right bundle branch block. The rate is 150. The appearance of the ECG suggests A flutter or A. fib as the underlying rhythm. There is no ST elevation, no PVCs. The QTc is 417. Compared to an ECG from 03 November 2020, there are significant changes present. Repeat EKG: Indication was shortness of breath. ECG shows atrial fibrillation with a rate of 118. The QTc is 493. There is no ST elevation, no PVCs. Compared to the ECG from earlier today, the rate has decreased, A. fib is now obvious as the underlying rhythm. Continuous Cardiac Monitoring: An order was placed for continuous cardiac monitoring. The monitor shows a rate of 149 with presumed atrial flutter/fibrillation. Critical Care Note: I have personally spent 63 minutes of critical care time in the direct management of this patient. This includes bedside care, in terpretation of diagnostic studies, and testing, discussion with consultants, patient, and family members, and other required patient management activities. This 63 minutes is in excess of all separately billable procedures. MEDICAL DECISION MAKING: There is no leukocytosis or concerning anemia. There is a normal platelet count. No coagulopathy. No significant electrolyte abnormality or kidney failure. No worrisome liver enzyme elevation. The patient appeared to be in a euthyroid state. ECG showed what appeared to be a rapid atrial fibrillation or atrial flutter. No acute ischemia. Cardiac enzyme testing x1 is not consistent with acute cardiac injury. Covid testing returned negative. Chest film did not show pneumonia or CHF. Chest CT did not show any evidence for PE. The patient was aggressively managed. He presented tachycardic and hypotensive. He received a 1 L IV saline bolus. He was given a bolus of IV diltiazem and placed on a diltiazem drip. His heart rate did slow and he was clearly in atrial fibrillation. The patient is in need of a hospital stay. I suspect his tachycardia has caused his dyspnea and weakness. Further care in the hospital, rate control and a cardiology consult are in order. The patient is aware of his findings, I spoke with case management. The on-call hospitalist has been consulted. Past Med/Surg History Medical History Acid reflux Mostly controlled Asthma Advair daily, albuterol rescue inhaler around once per day or less Atrial fibrillation with rapid ventricular response In the setting of acute extensive PE provoked by stasis after hip replacement Enlarged prostate Environmental allergies HAY FEVER History of pulmonary embolism Developed in post surgical setting Apr 2020 History of skin cancer REMOVED HTN (hypertension) Neck pain WENT TO [facility] RECENTLY IN [place]-IMPROVING Osteoarthritis Pulmonary embolism Extensive PE in post op (Post op Day 5) setting (from left VARINDER on 05/14/20) while on prophylactic aspirin BID - says he was compliant with meds. Was sedentary and didn't use QUINN stocking - would consider provoked. Seen in ER on 05/19/20 for PE- has been on Eliquis since that time Snores NO HX SLEEP STUDY, REPORTS POOR SLEEP Urinary frequency IMPROVING., PCP MONITORING Surgical History (Updated 01/07/21 @ 16:48 by Rony Horn MD) History of arthroscopy of left knee History of arthroscopy of right knee History of colonoscopy History of endoscopy History of esophagogastroduodenoscopy (EGD) History of left hip replacement History of toe surgery L GREAT TOE PLATE /SCREWS Status post left knee replacement (~11/2020) Family History Other Family history of diabetes mellitus in daughter Social History Smoking Status: Light tobacco smoker Cigarettes Per Day: occ cigar; Second Hand Exposure: No; Hx Alcohol Use: Yes Alcohol type: beer, wine and hard liquor Hx Substance Use: Yes Preferred Language: Maltese Communication Ability: Effective 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 Beliefs That Will Affect Care: None marital status: Current Living Situation: Spouse Feels Safe at Home: Yes Assistive Devices: Glasses and Walker Allergies Allergies Allergy/AdvReac Type Severity Reaction Status Date / Time ampicillin Allergy Intermediate AT [facility] Verified 01/07/21 15:25 AGE - RASH / BLISTERS Home Meds Home Medications Medication Instructions Recorded Confirmed alprazolam 0.5 mg PO HS PRN 04/29/20 01/07/21 cholecalciferol (vitamin D3) 25 mcg PO QAM 04/29/20 01/07/21 [Vitamin D3] diphenhydramine HCl [Sleep Aid 50 mg PO HS 04/29/20 01/07/21 (diphenhydramine)] famotidine 20 mg PO HS 04/29/20 01/07/21 losartan 50 mg PO QAM 04/29/20 01/07/21 melatonin 5 mg PO HS 04/29/20 01/07/21 montelukast 10 mg PO QAM 04/29/20 01/07/21 turmeric 500 mg PO QAM 04/29/20 01/07/21 albuterol sulfate 2 puff INHALATION DIRECTED PRN 05/19/20 01/07/21 potassium gluconate 600 mg PO QAM 05/19/20 01/07/21 Advair HFA 1 puff INHALATION BID 10/27/20 01/07/21 acetaminophen 1,300 mg PO Q12H 10/27/20 01/07/21 magnesium 250 mg PO QAM 10/27/20 01/07/21 rosuvastatin 5 mg PO QAM 10/27/20 01/07/21 tamsulosin 0.4 mg PO QAM 10/27/20 01/07/21 hydrochlorothiazide 12.5 mg PO DAILY 01/07/21 01/07/21 Previous Rx's Medication Instructions Recorded metoprolol tartrate 50 mg PO BID #60 tab 05/21/20 apixaban 2.5 mg PO BID 28 Days #56 tab 12/18/20 oxycodone-acetaminophen [Percocet] 1 tab PO Q6H PRN #30 tab 12/18/20 Results & Data (ED) Vital Signs Vital Signs - 24 hr 01/07/21 13:04 01/07/21 13:27 01/07/21 13:52 Temperature 36.4 C L Temperature Source Temporal Artery Scan Pulse Rate 149 H 152 H Pulse Rate from SpO2 Sensor 152 H Pulse Rhythm Regular Pulse Strength Normal Respiratory Rate 28 H 19 Respiratory Effort / Characteristics Short of Breath Respiratory Depth Normal Respiratory Pattern Regular Blood Pressure 102/66 93/58 L Blood Pressure Mean 78 69 Blood Pressure Position Sitting Pulse Oximetry 99 96 96 Oxygen Delivery Method Room Air Room Air Sepsis Recent Fever Within 48 Hours Yes Sepsis New/Unexplained Change in Mental Status No Sepsis Action Taken by Nursing Physician Notified 01/07/21 13:53 01/07/21 13:55 01/07/21 13:57 Temperature Temperature Source Pulse Rate 152 H 151 H 150 H Pulse Rate from SpO2 Sensor 152 H 151 H Pulse Rhythm Pulse Strength Respiratory Rate 14 16 14 Respiratory Effort / Characteristics Respiratory Depth Respiratory Pattern Blood Pressure 88/56 L 89/69 L 103/73 Blood Pressure Mean 66 75 83 Blood Pressure Position Pulse Oximetry 97 97 Oxygen Delivery Method Sepsis Recent Fever Within 48 Hours Sepsis New/Unexplained Change in Mental Status Sepsis Action Taken by Nursing 01/07/21 14:00 01/07/21 14:03 01/07/21 14:30 Temperature Temperature Source Pulse Rate 150 H 119 H Pulse Rate from SpO2 Sensor 106 H Pulse Rhythm Pulse Strength Respiratory Rate 16 26 H Respiratory Effort / Characteristics Non-Labored Spontaneous Respiratory Depth Respiratory Pattern Blood Pressure 117/75 124/74 Blood Pressure Mean 89 90 Blood Pressure Position Pulse Oximetry 98 Oxygen Delivery Method Sepsis Recent Fever Within 48 Hours Sepsis New/Unexplained Change in Mental Status Sepsis Action Taken by Nursing 01/07/21 15:00 01/07/21 15:13 Temperature Temperature Source Pulse Rate 127 H 127 H Pulse Rate from SpO2 Sensor 120 H 113 H Pulse Rhythm Pulse Strength Respiratory Rate 14 16 Respiratory Effort / Characteristics Respiratory Depth Respiratory Pattern Blood Pressure 96/76 L 106/81 Blood Pressure Mean 82 89 Blood Pressure Position Pulse Oximetry 98 98 Oxygen Delivery Method Sepsis Recent Fever Within 48 Hours Sepsis New/Unexplained Change in Mental Status Sepsis Action Taken by Care Home Medications Current Medication List: was personally reviewed by me Laboratory Data Attestation: I reviewed the patient's lab results. Result diagrams: 01/07/21 13:52 01/07/21 13:52 Lab Results 01/07/21 01/07/21 01/07/21 Range/Units 13:52 13:52 13:52 WBC 6.63 (4.8-10.8) K/uL RBC 4.37 L (4.7-6.1) M/uL Hgb 14.2 (14.0-18.0) g/dL POC Hgb (14.0-18.0) g/dl Hct 42.3 (42-52) % POC Hct (42-52) % MCV 96.8 (80-100) fL MCH 32.5 (25-34) pg MCHC 33.6 (32-36) g/dL RDW Std Deviation 43.5 (36.4-46.3) fL RDW Coeff of Joe 12.4 (11.5-14.5) % Plt Count 363 (130-400) K/uL MPV 8.8 (7.4-10.4) fL Immature Gran % (Auto) 0.3 % Neut % (Auto) 56.0 % Lymph % (Auto) 30.9 % Johnston % (Auto) 11.5 % Eos % (Auto) 1.1 % Baso % (Auto) 0.2 % Neut # (Auto) 3.72 (1.4-6.5) K/uL Lymph # (Auto) 2.05 (1.2-3.4) K/uL Johnston # (Auto) 0.76 H (0.11-0.59) K/uL Eos # (Auto) 0.07 (0-0.5) K/uL Baso # (Auto) 0.01 (0-0.2) K/uL Immature Gran # (Auto) 0.02 (0.00-0.02) K/uL PT 11.5 (9.0-12.0) Seconds INR 1.1 (0.9-1.1) APTT 27.0 (21.0-31.0) Seconds PTT Ratio 1.0 POC Sodium (135-144) mmol/L Sodium 141 (136-145) mmol/L POC Potassium (3.3-5.0) mmol/L Potassium 4.4 (3.5-5.1) mmol/L POC Chloride (101-112) mmol/L Chloride 110 H (98-107) mmol/L Carbon Dioxide 24 (21-32) mmol/L POC Total CO2 (24-31) mmol/L Anion Gap 7.0 (3-11) POC Anion Gap (16-25) mmol/L POC BUN (7-18) mg/dl BUN 25 H (7-18) mg/dl Creatinine 1.19 (0.6-1.4) mg/dl POC Creatinine (0.6-1.3) mg/dl Est Cr Clr Drug Dosing 79.1 ml/min Est GFR ( Amer) 71.3 ml/min Est GFR (Non-Af Amer) 61.5 ml/min BUN/Creatinine Ratio 20.9 H (10-20) Glucose 140 H (70-99) mg/dl POC Glucose (other) (70-99) mg/dl Calcium 8.8 (8.5-10.1) mg/dl POC Ioniz Calcium Esperanza (1.12-1.32) mmol/l Magnesium 2.4 (1.8-2.4) mg/dl Total Bilirubin 1.0 (0.2-1) mg/dl AST 22 (15-37) U/L ALT 25 (12-78) U/L Alkaline Phosphatase 66 (45-117) U/L Troponin I < 0.015 (0-0.045) ng/ml Total Protein 6.8 (6.4-8.2) gm/dl Albumin 3.2 L (3.4-5.0) gm/dl Globulin 3.6 (2.5-4.0) gm/dl Albumin/Globulin Ratio 0.9 (0.9-2) TSH 0.943 (0.300-4.500) uIu/ml COVID-19 Eval Order SARS-CoV-2 (PCR) (Negative) 01/07/21 01/07/21 01/07/21 Range/Units 14:04 15:20 15:20 WBC (4.8-10.8) K/uL RBC (4.7-6.1) M/uL Hgb (14.0-18.0) g/dL POC Hgb 14.3 (14.0-18.0) g/dl Hct (42-52) % POC Hct 42 (42-52) % MCV (80-100) fL MCH (25-34) pg MCHC (32-36) g/dL RDW Std Deviation (36.4-46.3) fL RDW Coeff of Joe (11.5-14.5) % Plt Count (130-400) K/uL MPV (7.4-10.4) fL Immature Gran % (Auto) % Neut % (Auto) % Lymph % (Auto) % Johnston % (Auto) % Eos % (Auto) % Baso % (Auto) % Neut # (Auto) (1.4-6.5) K/uL Lymph # (Auto) (1.2-3.4) K/uL Johnston # (Auto) (0.11-0.59) K/uL Eos # (Auto) (0-0.5) K/uL Baso # (Auto) (0-0.2) K/uL Immature Gran # (Auto) (0.00-0.02) K/uL PT (9.0-12.0) Seconds INR (0.9-1.1) APTT (21.0-31.0) Seconds PTT Ratio POC Sodium 141 (135-144) mmol/L Sodium (136-145) mmol/L POC Potassium 4.5 (3.3-5.0) mmol/L Potassium (3.5-5.1) mmol/L POC Chloride 105 (101-112) mmol/L Chloride (98-107) mmol/L Carbon Dioxide (21-32) mmol/L POC Total CO2 22 L (24-31) mmol/L Anion Gap (3-11) POC Anion Gap 20.0 (16-25) mmol/L POC BUN 27 H (7-18) mg/dl BUN (7-18) mg/dl Creatinine (0.6-1.4) mg/dl POC Creatinine 1.2 (0.6-1.3) mg/dl Est Cr Clr Drug Dosing ml/min Est GFR ( Amer) ml/min Est GFR (Non-Af Amer) ml/min BUN/Creatinine Ratio (10-20) Glucose (70-99) mg/dl POC Glucose (other) 148 H (70-99) mg/dl Calcium (8.5-10.1) mg/dl POC Ioniz Calcium Esperanza 1.24 (1.12-1.32) mmol/l Magnesium (1.8-2.4) mg/dl Total Bilirubin (0.2-1) mg/dl AST (15-37) U/L ALT (12-78) U/L Alkaline Phosphatase (45-117) U/L Troponin I (0-0.045) ng/ml Total Protein (6.4-8.2) gm/dl Albumin (3.4-5.0) gm/dl Globulin (2.5-4.0) gm/dl Albumin/Globulin Ratio (0.9-2) TSH (0.300-4.500) uIu/ml COVID-19 Eval Order Covid19 at [facility] SARS-CoV-2 (PCR) NEGATIVE (Negative) Administered Medications Diltiazem HCl 125 mg/ Dextrose 125 mls @ 5 mls/hr IV .Q24H TERRY; Protocol Stop: 02/06/21 14:14 Last Titration: 01/07/21 16:12 Dose: 15 mg/hr, 15 mls/hr Documented by: [id number] Cosigned by: [id number] Titration: 01/07/21 15:15 Dose: 10 mg/hr, 10 mls/hr Documented by: [id number] Cosigned by: [id number] Admin: 01/07/21 14:16 Dose: 5 mg/hr, 5 mls/hr Documented by: [id number] Cosigned by: [id number] Discontinued Medications Diltiazem HCl (Diltiazem Hcl 5 Mg/Ml 5 Ml Vial) 10 mg IV NOW STA Stop: 01/07/21 14:02 Last Admin: 01/07/21 14:16 Dose: 10 mg Documented by: [id number] Cosigned by: [id number] Sodium Chloride (Nss 1000ml) 1,000 mls @ 999 mls/hr IV .Q1H1M ONE Stop: 01/07/21 15:01 Last Infusion: 01/07/21 15:12 Dose: 0 mls/hr Documented by: [id number] Admin: 01/07/21 14:00 Dose: 999 mls/hr Documented by: [id number] Ioversol (Optiray 350 500ml) 120 ml IV ONCE ONE Stop: 01/07/21 15:59 Last Admin: 01/07/21 15:59 Dose: 120 ml Documented by: [id number] Miscellaneous (Stat Iv Infusion Titration Per Protocol) 1 ea N/A NOW STA Stop: 01/07/21 14:02 Last Admin: 01/07/21 15:12 Dose: Not Given Documented by: [id number] Imaging Data Radiologist's Impression: Chest CTA 01/07/21 14:01 CT ANGIOGRAPHY OF THE CHEST, PULMONARY EMBOLUS PROTOCOL CLINICAL HISTORY: Shortness of breath. Dizzy. COMPARISON STUDY: Chest CT May 19, 2020. Chest radiograph performed earlier today. TECHNIQUE: Following IV administration of 120 mL of Optiray, helical axial images of the chest were obtained utilizing the pulmonary embolus protocol. Max imal intensity projections and sagittal and coronal reformats were viewed on an independent 3D workstation. IV contrast was administered without complication. Automated exposure control was utilized for the study. A dose lowering technique was utilized adhering to the principles of ALARA. CT DOSE: 802.13 mGy.cm FINDINGS: No pulmonary emboli are identified. There is no thoracic aortic dissection. The pulmonary emboli shown on CT of May 19, 2020 has resolved. Note is made of mild cardiomegaly. There is no pericardial effusion. No pneumothorax or pleural effusion is noted. A few tree-in-bud nodules within the right lower lobe are similar to prior exam. Subpleural opacities reflect atelectasis. There is no consolidation to suggest pneumonia. No acute fracture is identified within visualized portions of the bony thorax. Visualized portions of the upper abdomen are unremarkable. IMPRESSION: 1. No pulmonary emboli identified. 2. No acute process within the chest. 3. Mild cardiomegaly. ACT 112: Negative or not required by law. Electronically signed by: Aj Grande M.D. 01/07/2021 4:11 PM Chest X-Ray 01/07/21 14:03 XR chest 1V portable CLINICAL HISTORY: Shortness of breath COMPARISON STUDY: 11/03/2020 FINDINGS: The heart is borderline enlarged. There is aortic tortuosity/ectasia. There is no failure. There is no focal pulmonary consolidation. There are no pleural effusions.[ IMPRESSION: No active disease in the chest. ACT 112: Negative or not required by law. Electronically signed by: Abrahan Silveira M.D. 01/07/2021 2:23 PM Discharge Plan Visit Data Chief Complaint: Abnormal Labs/Diagnostic Testing Stated Complaint: POSSIBLE CLOT IN LUNG ED Provider: Rony Horn Discharge Problem: SOB (shortness of breath), Atrial fibrillation with rapid ventricular response, Hypotension, History of left knee surgery Patient Disposition: Admitted As Inpatient Condition: Fair Forms Stand Alone Forms: [employer] Prescriptions Prescriptions: No Action losartan 50 mg Tablet 50 mg PO QAM RF: 0 alprazolam 0.5 mg Tablet 0.5 mg PO HS PRN (Reason: Sleep) RF: 0 famotidine 20 mg Tablet 20 mg PO HS RF: 0 cholecalciferol (vitamin D3) [Vitamin D3] 25 mcg (1,000 unit) Tablet 25 mcg PO QAM RF: 0 melatonin 5 mg Tablet 10 mg PO HS RF: 0 turmeric 400 mg Capsule 500 mg PO QAM RF: 0 montelukast 10 mg Tablet 10 mg PO QAM RF: 0 magnesium 250 mg Tablet 250 mg PO QAM RF: 0 rosuvastatin 5 mg Tablet 5 mg PO QAM RF: 0 tamsulosin 0.4 mg Capsule 0.4 mg PO QAM RF: 0 Advair HFA 115-21 mcg/actuation Hfa Aerosol Inhaler 1 puff INHALATION BID RF: 0 albuterol sulfate 90 mcg/actuation Hfa Aerosol Inhaler 2 puff INHALATION DIRECTED PRN (Reason: Shortness Of Breath Or Wheezing) RF: 0 potassium gluconate 600 mg (99 mg) Tablet 600 mg PO QAM RF: 0 metoprolol tartrate 50 mg Tablet 50 mg PO BID Qty: 60 RF: 0 oxycodone-acetaminophen [Percocet] 5-325 mg tablet 1 tab PO Q6H PRN (Reason: pain) Qty: 30 RF: 0 apixaban 5 mg tablet 2.5 mg PO BID 28 Days Qty: 56 RF: 0 Referrals Referrals: Mark Maldonado DO [Primary Care Provider] - Discharge Problem: Hypotension Qualifiers: Hypotension type: unspecified hypotension type Qualified Code(s): I95.9 - Hypotension, unspecified
[2021-01-07] MEDS: dilTIAZem HCL 125 MG in DEXTROSE 5% 100 ML IV SCH ×2 (14:16→22:49)
[2021-01-07 14:18] LABS: Basophils # (auto) 0.01 K/uL (0-0.2); Basophils % (auto) 0.2 %; Eosinophils # (auto) 0.07 K/uL (0-0.5); Eosinophils % (auto) 1.1 %; Hematocrit (blood only) 42.3 % (42-52); Hemoglobin 14.2 g/dL (14.0-18.0); Immature Granulocytes # (auto) 0.02 K/uL (0.00-0.02); Immature Granulocytes % (auto) 0.3 %; Lymphocytes # (auto) 2.05 K/uL (1.2-3.4); Lymphocytes % (auto) 30.9 %; Mean Corpuscular Hemoglobin 32.5 pg (25-34); Mean Corpuscular Hgb Conc 33.6 g/dL (32-36); Mean Corpuscular Volume 96.8 fL (80-100); Mean Platelet Volume 8.8 fL (7.4-10.4); Monocytes # (auto) 0.76 K/uL (0.11-0.59); Monocytes % (auto) 11.5 %; Neutrophils # (auto) 3.72 K/uL (1.4-6.5); Platelet Count 363 K/uL (130-400); RDW Coefficient of Variation 12.4 % (11.5-14.5); RDW Standard Deviation 43.5 fL (36.4-46.3); Red Blood Count 4.37 M/uL (4.7-6.1); White Blood Count 6.63 K/uL (4.8-10.8)
--- NOTE | 2021-01-07 14:24 | XRay Report ---
XR chest 1V portable CLINICAL HISTORY: Shortness of breath COMPARISON STUDY: 11/03/2020 FINDINGS: The heart is borderline enlarged. There is aortic tortuosity/ectasia. There is no failure. There is no focal pulmonary consolidation. There are no pleural effusions.[ IMPRESSION: No active disease in the chest. ACT 112: Negative or not required by law. Electronically signed by: Abrahan Silveira M.D. 01/07/2021 2:23 PM
[2021-01-07 14:25] LABS: Alanine Aminotransferase 25 U/L (12-78); Albumin Level 3.2 gm/dl (3.4-5.0); Aspartate Aminotransferase 22 U/L (15-37); BUN Creatinine Ratio 20.9 (10-20); Blood Urea Nitrogen 25 mg/dl (7-18); Calcium 8.8 mg/dl (8.5-10.1); Carbon Dioxide 24 mmol/L (21-32); Chloride 110 mmol/L (98-107); Creatinine Clr Calc Pharmacy 79.1 ml/min; Est GFR (African American) 71.3 ml/min; Est GFR (Non-African American) 61.5 ml/min; Glucose 140 mg/dl (70-99); Magnesium 2.4 mg/dl (1.8-2.4); Potassium 4.4 mmol/L (3.5-5.1); Sodium 141 mmol/L (136-145)
[2021-01-07 14:27] LABS: iSTAT Creatinine 1.2 mg/dl (0.6-1.3); iSTAT Hemoglobin 14.3 g/dl (14.0-18.0); iSTAT Ionized Calcium 1.24 mmol/l (1.12-1.32); iSTAT Potassium 4.5 mmol/L (3.3-5.0)
[2021-01-07 14:27] LABS: INR 1.1 (0.9-1.1); Prothrombin Time 11.5 Seconds (9.0-12.0)
[2021-01-07 14:36] LABS: Albumin Globulin Ratio 0.9 (0.9-2); Alkaline Phosphatase 66 U/L (45-117); Globulin 3.6 gm/dl (2.5-4.0); Thyroid Stimulating Hormone 0.943 uIu/ml (0.300-4.500); Total Protein 6.8 gm/dl (6.4-8.2); Troponin I < 0.015 ng/ml (0-0.045)
--- NOTE | 2021-01-07 15:38 | History & Physical Report ---
Date of Service January 07, 2021 Assessment & Plan (1) Atrial fibrillation with rapid ventricular response: This is a 70-year-old male with PMH of paroxysmal A flutter/fib, history of PE on Eliquis, hypertension, hyperlipidemia, BPH and other medical problems listed below who presents with shortness of breath since his knee surgery 3 weeks ago and was found to have atrial fibrillation with RVR. ECG with A fib with RVR at 151 bpm Started on diltiazem drip which has been uptitrated -heart rate now 115 Chest CTA obtained due to concern for PE from brief perioperative hold on Eliquis -no pulmonary emboli identified. No acute process within the chest Eliquis dose decreased by orthopedic service following knee surgery to 2.5 mg BID a few weeks ago Discussed case with Dr. Kaur, who agreed with increasing Eliquis back to 5mg BID Continue diltiazem drip on the floor, Lopressor 50mg BID PRN IV Lopressor 2.5mg IV Q6H PRN for HR >115 if BP allows Routine 2D echo Cardiology consulted (2) History of pulmonary embolism: PE following hip surgery in Apr 2020 Continue Eliquis (3) HTN (hypertension): Continue Lopressor BID, Losartan (4) BPH (benign prostatic hyperplasia): Continue Flomax. Ordered Finasteride, which was just prescribed by PCP (5) Insomnia: Suspicion for REBEKAH with sleep study scheduled in February Continue home Alprazolam and Melatonin HS Supplemental O2 if needed (6) Asthma: Stable. Continue Advair inh, albuterol PRN DVT Ppx: Eliquis Code status: FULL PCP: Joel Dispo: Admitted to PCU. Plan to return home once medically stable. Patient seen in collaboration with Dr. Hennessy. Please see addendum. History of Present Illness Chief Complaint: Shortness of breath Primary Care Provider: Mark Maldonado DO This is a 70-year-old male with PMH of paroxysmal A flutter/fib, history of PE on Eliquis, hypertension, hyperlipidemia, BPH and other medical problems listed below who presents with shortness of breath since his knee surgery 3 weeks ago. Has history of surgery last April with development of PE. Has been on Eliquis for this until holding for a total of 5 days perioperatively for knee surgery a few weeks ago. Has been feeling short of breath for the past month that is progressively worsened. Also feeling intermittently lightheaded. Denies any visual changes, chest pain, palpitations. Denies near syncope. Does have history of paroxysmal a flutter/fib for which she follows with Dr. Lugo in cardiology clinic and is on Lopressor 50mg BID for rate control and Eliquis 5 mg twice daily for anticoagulation. Has not been as active as usual, per . Attributed some of that to recent orthopedic surgeries. Decreased appetite as well with some reported weight loss. Denies any fever, chills, headache, sore throat, nausea, vomiting, abdominal pain, dysuria, diarrhea constipation. Worsening BPH symptoms lately and is on Flomax. 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 Endorses rare alcohol use. Allergies Allergy/AdvReac Type Severity Reaction Status Date / Time ampicillin Allergy Intermediate AT YOUNGER Verified 01/07/21 15:25 AGE - RASH / BLISTERS Home Medications Medication Instructions Recorded Confirmed Type alprazolam 0.5 mg PO HS PRN 04/29/20 01/07/21 History cholecalciferol (vitamin D3) 25 mcg PO QAM 04/29/20 01/07/21 History [Vitamin D3] famotidine 20 mg PO HS 04/29/20 01/07/21 History losartan 50 mg PO QAM 04/29/20 01/07/21 History melatonin 10 mg PO HS 04/29/20 01/07/21 History montelukast 10 mg PO QAM 04/29/20 01/07/21 History turmeric 500 mg PO QAM 04/29/20 01/07/21 History albuterol sulfate 2 puff INHALATION DIRECTED PRN 05/19/20 01/07/21 History potassium gluconate 600 mg PO QAM 05/19/20 01/07/21 History metoprolol tartrate 50 mg PO BID #60 tab 05/21/20 01/07/21 Rx Advair HFA 1 puff INHALATION BID 10/27/20 01/07/21 History magnesium 250 mg PO QAM 10/27/20 01/07/21 History rosuvastatin 5 mg PO QAM 10/27/20 01/07/21 History tamsulosin 0.4 mg PO QAM 10/27/20 01/07/21 History apixaban 2.5 mg PO BID 28 Days #56 tab 12/18/20 01/07/21 Rx oxycodone-acetaminophen [Percocet] 1 tab PO Q6H PRN #30 tab 12/18/20 01/07/21 Rx Past Med/Surg History Medical History (Updated 01/07/21 @ 17:45 by Neha Ann PA-C) Acid reflux Mostly controlled Asthma Advair daily, albuterol rescue inhaler around once per day or less Atrial fibrillation with rapid ventricular response In the setting of acute extensive PE provoked by stasis after hip replacement BPH (benign prostatic hyperplasia) Enlarged prostate Environmental allergies HAY FEVER History of pulmonary embolism Developed in post surgical setting Apr 2020 History of skin cancer REMOVED HTN (hypertension) Insomnia Neck pain WENT TO [facility] RECENTLY [place]-IMPROVING Osteoarthritis Pulmonary embolism Extensive PE in post op (Post op Day 5) setting (from left VARINDER on 05/14/20) while on prophylactic aspirin BID - says he was compliant with meds. Was sedentary and didn't use QUINN stocking - would consider provoked. Seen in ER on 05/19/20 for PE- has been on Eliquis since that time Snores NO HX SLEEP STUDY, REPORTS POOR SLEEP Urinary frequency IMPROVING., PCP MONITORING Surgical History History of arthroscopy of left knee History of arthroscopy of right knee History of colonoscopy History of endoscopy History of esophagogastroduodenoscopy (EGD) History of left hip replacement History of toe surgery L GREAT TOE PLATE /SCREWS Status post left knee replacement (~11/2020) Family History Other Family history of diabetes mellitus in daughter Social History Smoking Status: Light tobacco smoker Cigarettes Per Day: occasional cigar; Second Hand Exposure: No; Do You Dip or Chew Tobacco: No; Tobacco Cessation Education Requested by Patient: No Hx Alcohol Use: Yes Alcohol type: beer, wine and hard liquor Hx Substance Use: Yes Preferred Language: Paraguayan Communication Ability: Effective Environmental Remediation Consultant Required: No Beliefs That Will Affect Care: None marital status: Current Living Situation: Spouse Other Information That Helps Us Care for You: No Feels Safe at Home: Yes Safety Concerns: Feels Safe At This Time Assistive Devices: None Review of Systems Review of Systems: At least ten systems reviewed and negative except as noted in the HPI. Physical Exam Physical Exam: General Appearance: WD/WN, vitals as above, NAD, sitting up in bed, pleasant, conversing easily, obese Head: normocephalic, atraumatic Eyes: normal inspection, PERRL, conjunctivae normal, anicteric sclerae ENT: external ear and nose normal, oropharynx normal Neck: normal visual inspection, trachea midline, no thyromegaly Respiratory: normal respiratory effort, lungs clear to auscultation, no wheeze, rales, rhonchi. No accessory muscle use Cardiovascular: irregular rate & rhythm, no murmur appreciated, normal peripheral pulses, trace BLE edema. Vessels: no JVD Chest: normal inspection of chest Abdomen/GI: normal bowel sounds, soft, nontender, no hepatosplenomegaly Extremities/Musculoskeletal: no cyanosis or clubbing, extremities motor strength 5/5 Neurologic: PERRL, EOMI, accommodation nl, no face palsy, no dysarthria, CN's II-XI intact bilaterally and moves all extremities Psychiatric: A+Ox3, euthymic affect Skin: no rashes, normal color, warm/dry Results & Data Results & Data ([facility]) Vital Signs (Past 12 Hours) Vital Signs Temp Pulse Resp BP Pulse Ox 01/07/21 15:13 127 H 16 106/81 98 01/07/21 15:00 127 H 14 96/76 L 98 01/07/21 14:30 119 H 26 H 124/74 98 01/07/21 14:00 150 H 16 117/75 01/07/21 13:57 150 H 14 103/73 01/07/21 13:55 151 H 16 89/69 L 97 01/07/21 13:53 152 H 14 88/56 L 97 01/07/21 13:52 152 H 19 93/58 L 96 01/07/21 13:27 36.4 C L 149 H 28 H 102/66 96 01/07/21 13:04 99 Laboratory Results Short CBC 01/07/21 Range/Units 13:52 WBC 6.63 (4.8-10.8) K/uL Hgb 14.2 (14.0-18.0) g/dL Hct 42.3 (42-52) % Plt Count 363 (130-400) K/uL BMP 01/07/21 13:52 Sodium 141 Potassium 4.4 Chloride 110 H Carbon Dioxide 24 BUN 25 H Creatinine 1.19 Glucose 140 H Calcium 8.8 Cardiac Enzymes 01/07/21 Range/Units 13:52 Troponin I < 0.015 (0-0.045) ng/ml Liver Function 01/07/21 Range/Units 13:52 Total Bilirubin 1.0 (0.2-1) mg/dl AST 22 (15-37) U/L ALT 25 (12-78) U/L Alkaline Phosphatase 66 (45-117) U/L Albumin 3.2 L (3.4-5.0) gm/dl Diagnostic Findings Chest X-Ray 01/07/21 14:03 XR chest 1V portable CLINICAL HISTORY: Shortness of breath COMPARISON STUDY: 11/03/2020 FINDINGS: The heart is borderline enlarged. There is aortic tortuosity/ectasia. There is no failure. There is no focal pulmonary consolidation. There are no pleural effusions.[ IMPRESSION: No active disease in the chest. ACT 112: Negative or not required by law. Electronically signed by: Abrahan Silveira M.D. 01/07/2021 2:23 PM ECG Rhythm: atrial fibrillation Code Status & VTE Plan VTE Prophylaxis Plan VTE Prophylaxis will be ordered: Yes Supervising Physician Co-Signing Physician Notes Attending addendum The patient signed the emergency room in presence of the He presented to ER with the exertional shortness of breath for the last few weeks without any palpitation and/or chest pain He is status post left knee surgery about 3 weeks ago Has minimal swelling involving the legs more on the left than the right He was noted to have A. fib with RVR in the emergency room without any evidence of pulmonary embolism in CAT scan On examination Anxious but remains hemodynamically stable Chestdecreased breath sounds at the bases with minimal crackles HeartS1-S2, irregularly irregular, tachycardia Abdomenbenign Extremitiestrace edema on the right side,1+ edema on the left CNSalert, awake and oriented x3 His admission labs, EKG and imaging studies reviewed He is status post left knee surgery about 3 weeks ago and before that left hip surgery Has A. fib with RVR without any evidence of pulmonary embolism in CAT scan Has been on Cardizem drip, cardiology consulted and on Eliquis Agree with assessment and plan as outlined above by RAFIQ Hernandez Dr
[2021-01-07] MEDS ORDERED: OPTIRAY 350 500ml IV ONE (15:58)
--- NOTE | 2021-01-07 16:12 | CT Scan Report ---
CT ANGIOGRAPHY OF THE CHEST, PULMONARY EMBOLUS PROTOCOL CLINICAL HISTORY: Shortness of breath. Dizzy. COMPARISON STUDY: Chest CT May 19, 2020. Chest radiograph performed earlier today. TECHNIQUE: Following IV administration of 120 mL of Optiray, helical axial images of the chest were o btained utilizing the pulmonary embolus protocol. Maximal intensity projections and sagittal and cor onal reformats were viewed on an independent 3D workstation. IV contrast was administered without co mplication. Automated exposure control was utilized for the study. A dose lowering technique was ut ilized adhering to the principles of ALARA. CT DOSE: 802.13 mGy.cm FINDINGS: No pulmonary emboli are identified. There is no thoracic aortic dissection. The pulmonary emboli shown on CT of May 19, 2020 has resolved. Note is made of mild cardiomegaly. There is no p ericardial effusion. No pneumothorax or pleural effusion is noted. A few tree-in-bud nodules within t he right lower lobe are similar to prior exam. Subpleural opacities reflect atelectasis. There is no consolidation to suggest pneumonia. No acute fracture is identified within visualized portions of the bony thorax. Visualized portions of the upper abdomen are unremarkable. IMPRESSION: 1. No pulmonary emboli identified. 2. No acute process within the chest. 3. Mild cardiomegaly. ACT 112: Negative or not required by law. Electronically signed by: Aj Grande M.D. 01/07/2021 4:11 PM
[2021-01-07] MEDS ORDERED: METOPROLOL TARTRATE 50 MG TAB PO STA (17:16)
[2021-01-07] MEDS ORDERED: oxyCODONE/ACETAMINOPHEN 5mg/325mg TAB PO PRN (17:59)
[2021-01-07] MEDS ORDERED: ONDANSETRON INJ 2 MG/ML 2 ML VIAL IV PRN (17:59)
[2021-01-07] MEDS ORDERED: POLYETHYLENE (MIRALAX) 17 GM PACK PO PRN (17:59)
[2021-01-07] MEDS ORDERED: ACETAMINOPHEN 325 MG TAB PO PRN (17:59)
[2021-01-07] MEDS ORDERED: METOPROLOL TARTRATE 1 MG/ML VIAL IV PRN (17:59)
[2021-01-07] MEDS ORDERED: ALBUTEROL HFA 8 GM INHALER INH PRN (17:59)
[2021-01-07] MEDS: FINASTERIDE 5 MG TAB PO SCH (19:40)
[2021-01-07] MEDS: APIXABAN 5 MG TABLET PO SCH (20:15)
[2021-01-07] MEDS: FAMOTIDINE 20 MG TAB PO SCH (20:15)
[2021-01-07] MEDS: MELATONIN 3 MG TAB PO SCH (23:43)
[2021-01-07] MEDS: ALPRAZolam 0.5 MG TABLET PO PRN (23:43)
[2021-01-08] MEDS ORDERED: ALPRAZolam 0.5 MG TABLET PO STA (03:34)
[2021-01-08 07:15] LABS: Hematocrit (blood only) 40.5 % (42-52); Hemoglobin 13.6 g/dL (14.0-18.0); Mean Corpuscular Hemoglobin 31.6 pg (25-34); Mean Corpuscular Hgb Conc 33.6 g/dL (32-36); Mean Corpuscular Volume 94.2 fL (80-100); Mean Platelet Volume 8.7 fL (7.4-10.4); Platelet Count 293 K/uL (130-400); RDW Coefficient of Variation 12.4 % (11.5-14.5); RDW Standard Deviation 42.4 fL (36.4-46.3); White Blood Count 5.98 K/uL (4.8-10.8)
[2021-01-08] MEDS: dilTIAZem HCL 125 MG in DEXTROSE 5% 100 ML IV SCH (07:31)
[2021-01-08 07:35] LABS: BUN Creatinine Ratio 22.3 (10-20); Calcium 8.7 mg/dl (8.5-10.1); Creatinine Clr Calc Pharmacy 96.6 ml/min; Est GFR (African American) 91.3 ml/min; Est GFR (Non-African American) 78.8 ml/min; Potassium 3.9 mmol/L (3.5-5.1)
[2021-01-08] MEDS: MONTELUKAST SODIUM 10 MG TABLET PO SCH (07:55)
[2021-01-08] MEDS: MAGNESIUM OXIDE 400 MG TAB PO SCH (07:55)
[2021-01-08] MEDS: FINASTERIDE 5 MG TAB PO SCH (07:55)
[2021-01-08] MEDS: APIXABAN 5 MG TABLET PO SCH ×2 (07:55→20:43)
[2021-01-08] MEDS: ROSUVASTATIN CALCIUM 5 MG TAB PO SCH (07:55)
[2021-01-08] MEDS: TAMSULOSIN HCL 0.4 MG CAP PO SCH (07:55)
[2021-01-08] MEDS: CHOLECALCIFEROL 1,000 UNITS 25 MCG TAB PO SCH (07:55)
[2021-01-08] MEDS: FLUTICASONE/VILANTEROL 200/25MCG 14 PUFFS/INHALER INH SCH (07:56)
[2021-01-08] MEDS: LOSARTAN POTASSIUM 50 MG TAB PO SCH (07:56)
--- NOTE | 2021-01-08 08:20 | Electrocardiogram Report ---
Test Reason : Blood Pressure : / mmHG Vent. Rate : 151 BPM Atrial Rate : 151 BPM P-R Int : 130 ms QRS Dur : 096 ms QT Int : 266 ms P-R-T Axes : 231 -43 041 degrees QTc Int : 421 ms Atrial flutter with 2 to 1 block Left axis deviation Incomplete right bundle branch block Abnormal ECG When compared with ECG of 03-NOV-2020 13:35, Atrial flutter has replaced Sinus rhythm Vent. rate has increased BY 91 BPM Confirmed by Harjinder Alarcon ([id number]) on 01/08/2021 8:20:18 AM Referred By: REFERRED SELF Confirmed By:Harjinder Alarcon
--- NOTE | 2021-01-08 08:22 | Electrocardiogram Report ---
Test Reason : Blood Pressure : / mmHG Vent. Rate : 118 BPM Atrial Rate : 118 BPM P-R Int : 000 ms QRS Dur : 108 ms QT Int : 352 ms P-R-T Axes : 000 -39 026 degrees QTc Int : 493 ms Atrial flutter / Atrial fibrillation with rapid ventricular response Left axis deviation Incomplete right bundle branch block Abnormal ECG When compared with ECG of 07-JAN-2021 13:38, QRS duration has decreased Confirmed by Harjinder Alarcon ([id number]) on 01/08/2021 8:21:59 AM Referred By: REFERRED SELF Confirmed By:Harjinder Alarcon
[2021-01-08] MEDS ORDERED: METOPROLOL TARTRATE 50 MG TAB PO SCH (09:00)
--- NOTE | 2021-01-08 09:28 | Cardiology Consultation ---
Date of Consultation January 08, 2021 Assessment & Plan (1) Atrial flutter with rapid ventricular response: Patient is a 70-year-old male with a history of paroxysmal atrial fibrillation with initial event occurring post orthopedic surgery in April 2020. He now represents with recurrence of atrial flutter, symptomatic Plan: Discontinue metoprolol and IV diltiazem. Begin sotalol 80 mg twice per day for planned rhythm control. Agree with full anticoagulation with apixaban at 5 mg twice per day Exam suggest mild volume overload likely on the basis of elevated ventricular response rates. We will give single dose of IV furosemide and potassium supplement Continue to maintain telemetry, consider cardioversion if not spontaneous. Would need YOKASTA guidance Will need formal sleep evaluation nocturnal oximetry will be ordered (2) History of left knee surgery: (3) History of pulmonary embolism: History of Present Illness Attending Physician: Bird Hennessy MD History of Present Illness Patient is a 70-year-old male whose ongoing issues include 1. Paroxysmal atrial flutter initial event in the setting of acute PE April 2020 with a chads Vasc score of 2 2. History of pulmonary emboli 3. Hypertension 4. 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 He was recovering at home but has been experiencing symptoms of increasing dyspnea and diminished exercise capacity that has progressively worsened. He presented ER where he was found to be in atrial flutter with elevated ventricular response rate. Rates of initially were controlled with IV diltiazem he is referred now for further evaluation. He notes no acute chest pains or discomfort notes no overt orthopnea but has had some increasing left lower extremity edema. No fevers chills or unexplained infections. No dizziness or lightheadedness. Has been taking medications as prescribed however apixaban was reduced in dosing to DVT prophylaxis dose at time of discharge. Patient denies bleeding difficulties. Notes no history of TIA or stroke. Does admit to significant sleep disorder complaints without formal evaluation CT scan of the chest without pulmonary emboli chest x-ray without edema other than mild plethora of vessels Since admission patient was begun on IV diltiazem with slowing of atrial flutter rate. Anticoagulation was increased back to full dosing Patient referred now for further management Allergies Allergy/AdvReac Type Severity Reaction Status Date / Time ampicillin Allergy Intermediate AT YOUNGER Verified 01/07/21 15:25 AGE - RASH / BLISTERS Home Medications Medication Instructions Recorded Confirmed Type alprazolam 0.5 mg PO HS PRN 04/29/20 01/07/21 History cholecalciferol (vitamin D3) 25 mcg PO QAM 04/29/20 01/07/21 History [Vitamin D3] famotidine 20 mg PO HS 04/29/20 01/07/21 History losartan 50 mg PO QAM 04/29/20 01/07/21 History melatonin 10 mg PO HS 04/29/20 01/07/21 History montelukast 10 mg PO QAM 04/29/20 01/07/21 History turmeric 500 mg PO QAM 04/29/20 01/07/21 History albuterol sulfate 2 puff INHALATION DIRECTED PRN 05/19/20 01/07/21 History potassium gluconate 600 mg PO QAM 05/19/20 01/07/21 History metoprolol tartrate 50 mg PO BID #60 tab 05/21/20 01/07/21 Rx Advair HFA 1 puff INHALATION BID 10/27/20 01/07/21 History magnesium 250 mg PO QAM 10/27/20 01/07/21 History rosuvastatin 5 mg PO QAM 10/27/20 01/07/21 History tamsulosin 0.4 mg PO QAM 10/27/20 01/07/21 History apixaban 2.5 mg PO BID 28 Days #56 tab 12/18/20 01/07/21 Rx oxycodone-acetaminophen [Percocet] 1 tab PO Q6H PRN #30 tab 12/18/20 01/07/21 Rx Patient History Medical History (Updated 01/08/21 @ 15:27 by Kai Booth MD) Acid reflux Mostly controlled Asthma Advair daily, albuterol rescue inhaler around once per day or less Atrial fibrillation with rapid ventricular response In the setting of acute extensive PE provoked by stasis after hip replacement BPH (benign prostatic hyperplasia) Enlarged prostate Environmental allergies HAY FEVER History of pulmonary embolism Developed in post surgical setting Apr 2020 History of skin cancer REMOVED HTN (hypertension) Insomnia Neck pain WENT TO [facility] RECENTLY IN [place]-IMPROVING Osteoarthritis Pulmonary embolism Extensive PE in post op (Post op Day 5) setting (from left VARINDER on 05/14/20) while on prophylactic aspirin BID - says he was compliant with meds. Was sedentary and didn't use QUINN stocking - would consider provoked. Seen in ER on 05/19/20 for PE- has been on Eliquis since that time Snores NO HX SLEEP STUDY, REPORTS POOR SLEEP Urinary frequency IMPROVING., PCP MONITORING Surgical History History of arthroscopy of left knee History of arthroscopy of right knee History of colonoscopy History of endoscopy History of esophagogastroduodenoscopy (EGD) History of left hip replacement History of toe surgery L GREAT TOE PLATE /SCREWS Status post left knee replacement (~11/2020) Family History Other Family history of diabetes mellitus in daughter Social History Smoking Status: Light tobacco smoker Cigarettes Per Day: occasional cigar; Second Hand Exposure: No; Do You Dip or Chew Tobacco: No; Tobacco Cessation Education Requested by Patient: No Hx Alcohol Use: Yes Alcohol type: beer, wine and hard liquor Hx Substance Use: Yes Preferred Language: Trinidadian Communication Ability: Effective Servomechanism Designer Required: No Beliefs That Will Affect Care: None marital status: Current Living Situation: Spouse Other Information That Helps Us Care for You: No Feels Safe at Home: Yes Safety Concerns: Feels Safe At This Time Assistive Devices: None Review of Systems Review of Systems: All systems reviewed & are unremarkable except as noted in HPI & below Physical Exam Constitutional: WD/WN, vitals as above + obese Eyes: PERRL, conjunctivae normal, anicteric sclerae ENMT: external ear and nose normal, oropharynx normal Neck: trachea midline, no thyromegaly Respiratory: normal respiratory effort, lungs clear to auscultation Cardiovascular: Rate/Rhythm: + irregularly irregular Heart Sounds: normal S1 and normal S2; no gallop and no murmur Palpation: normal PMI Vessels: normal carotid upstroke and radial pulses present; no JVD and no carotid bruit Extremities: + edema (Trace right lower extremity edema, 2-3+ left lower extremity) Gastrointestinal (Abdomen): normal bowel sounds, soft, nontender, no hepatosplenomegaly Musculoskeletal: no cyanosis or clubbing, extremities motor strength 5/5 Surgical incision overlying left knee with intact incision Skin: no rashes, warm and dry Neurologic: PERRL, EOMI, accommodation nl, no face palsy, no dysarthria Psychiatric: A+Ox3, euthymic affect Results & Data ([facility]) Vital Signs (Past 12 Hours) Vital Signs Temp Pulse Pulse Resp BP BP Pulse Ox 01/08/21 08:36 78 01/08/21 08:31 123 H 140/78 01/08/21 07:33 36.5 C 99 H 20 140/78 95 01/08/21 03:25 36.5 C 80 20 150/75 H 96 01/07/21 23:47 79 01/07/21 23:23 36.9 C 54 L 22 150/77 H 93 Laboratory Results Laboratory Results - last 24 hr 01/07/21 01/07/21 01/08/21 15:20 15:20 06:47 WBC 5.98 RBC 4.30 L Hgb 13.6 L Hct 40.5 L MCV 94.2 MCH 31.6 MCHC 33.6 RDW Std Deviation 42.4 RDW Coeff of Joe 12.4 Plt Count 293 MPV 8.7 Sodium Potassium Chloride Carbon Dioxide Anion Gap BUN Creatinine Est Cr Clr Drug Dosing Est GFR ( Amer) Est GFR (Non-Af Amer) BUN/Creatinine Ratio Glucose Calcium COVID-19 Eval Order Covid19 at [facility] SARS-CoV-2 (PCR) NEGATIVE 01/08/21 06:47 WBC RBC Hgb Hct MCV MCH MCHC RDW Std Deviation RDW Coeff of Joe Plt Count MPV Sodium 140 Potassium 3.9 Chloride 109 H Carbon Dioxide 23 Anion Gap 8.0 BUN 22 H Creatinine 0.97 Est Cr Clr Drug Dosing 96.6 Est GFR ( Amer) 91.3 Est GFR (Non-Af Amer) 78.8 BUN/Creatinine Ratio 22.3 H Glucose 117 H Calcium 8.7 COVID-19 Eval Order SARS-CoV-2 (PCR) ECG Additional Comments: [facility] [place] Electrocardiogram ReportSigned Patient: MONI LAAdmit Date: 01/07/21MR#: [id number] [id number] Phy: Mark Maldonado DOSung Date: 1950Fam Phy:Age: 70Location: 2SSex: MRoom/Bed: S2392 cc: ~ DICTATED BY: Wil Saleh MD Test Reason : Blood Pressure : / mmHG Vent. Rate : 082 BPM Atrial Rate : 315 BPM P-R Int : 000 ms QRS Dur : 102 ms QT Int : 388 ms P-R-T Axes : 261 -40 014 degrees QTc Int : 453 ms Atrial flutter with variable A-V block Left axis deviation Incomplete right bundle branch block Minimal voltage criteria for LVH, may be normal variant
[2021-01-08] MEDS ORDERED: SOTALOL HCL 80 MG TAB PO ONE (12:14)
[2021-01-08] MEDS ORDERED: POTASSIUM CHLORIDE CRTAB 20 MEQ TABCR PO ONE (12:19)
[2021-01-08] MEDS ORDERED: FUROSEMIDE 20 MG in SYRINGE 0 ML IV ONE (13:00)
--- NOTE | 2021-01-08 15:05 | Electrocardiogram Report ---
Test Reason : Blood Pressure : / mmHG Vent. Rate : 082 BPM Atrial Rate : 315 BPM P-R Int : 000 ms QRS Dur : 102 ms QT Int : 388 ms P-R-T Axes : 261 -40 014 degrees QTc Int : 453 ms Atrial flutter with variable A-V block Left axis deviation Incomplete right bundle branch block Minimal voltage criteria for LVH, may be normal variant Abnormal ECG When compared with ECG of 07-JAN-2021 14:31, Atrial flutter has replaced Atrial fibrillation Confirmed by Wil Saleh ([id number]) on 01/08/2021 3:05:09 PM Referred By: REFERRED SELF Confirmed By:Wil Saleh
--- NOTE | 2021-01-08 15:49 | Hospitalist Progress Note ---
Date of Service January 08, 2021 Assessment & Plan (1) Atrial fibrillation with rapid ventricular response: This is a 70-year-old male with PMH of paroxysmal A flutter/fib, history of PE on Eliquis, hypertension, hyperlipidemia, BPH and other medical problems listed below who presents with shortness of breath since his knee surgery 3 weeks ago and was found to have atrial fibrillation with RVR. ECG with A fib with RVR at 151 bpm on admission Started on diltiazem drip which has been uptitrated -heart rate now 115 Chest CTA obtained due to concern for PE from brief perioperative hold on Eliquis -no pulmonary emboli identified. No acute process within the chest Eliquis dose decreased by orthopedic service following knee surgery to 2.5 mg BID a few weeks ago Discussed case with Dr. Kaur, who agreed with increasing Eliquis back to 5mg BID Continue diltiazem drip on the floor, Lopressor 50mg BID PRN IV Lopressor 2.5mg IV Q6H PRN for HR >115 if BP allows Routine 2D echo-pending EKG 1 01/08/2021 showed a flutter with variable block rate of 82/min Cardiology consulted -appreciate input and recommendation Metoprolol and diltiazem have been discontinued He has been started with sotalol at a dose of 80 mg twice daily Will need to stay in the telemetry unit for the next few days Status post left knee surgery about 3 weeks ago He was on Eliquis 2.5 mg twice daily as a prophylactic dose following the surgery CTA did not show any pulmonary embolism He is back on full doses of Eliquis PT and OT evaluation have been ordered (2) History of pulmonary embolism: PE following hip surgery in Apr 2020 Continue Eliquis (3) HTN (hypertension): Continue Lopressor BID, Losartan (4) BPH (benign prostatic hyperplasia): Continue Flomax. Ordered Finasteride, which was just prescribed by PCP (5) Insomnia: Suspicion for REBEKAH with sleep study scheduled in February Continue home Alprazolam and Melatonin HS Supplemental O2 if needed Nocturnal pulse oximetry has been ordered by the folding machine operator Will need outpatient sleep study (6) Asthma: Stable. Continue Advair inh, albuterol PRN DVT Ppx: Eliquis Code status: FULL PCP: Joel Dispo: Admitted to PCU. Plan to return home once medically stable. Patient seen in collaboration with Dr. Hennessy. Please see addendum. Admission and Anticipated Discharge Date Admission Date: January 07, 2021 Subjective 01/08/2021 The patient was seen and examined in telemetry unit He has been feeling much better and denies any shortness of breath at rest No chest pain and/or palpitation Denies any significant pain Review of Systems Review of Systems: All systems reviewed and are unremarkable except as noted below Respiratory: no cough and no dyspnea Cardiovascular: no chest pain and no palpitations Musculoskeletal: Left knee pain Physical Exam Physical Exam: General Appearance: WD/WN, vitals as above, NAD, sitting up in bed, pleasant, conversing easily, obese Head: normocephalic, atraumatic Eyes: normal inspection, PERRL, conjunctivae normal, anicteric sclerae ENT: external ear and nose normal, oropharynx normal Neck: normal visual inspection, trachea midline, no thyromegaly Respiratory: normal respiratory effort, lungs clear to auscultation, no wheeze, rales, rhonchi. No accessory muscle use Cardiovascular: irregular rate & rhythm, no murmur appreciated, normal peripheral pulses, trace BLE edema. Vessels: no JVD Chest: normal inspection of chest Abdomen/GI: normal bowel sounds, soft, nontender, no hepatosplenomegaly Extremities/Musculoskeletal: no cyanosis or clubbing, extremities motor strength 5/5 Neurologic: PERRL, EOMI, accommodation nl, no face palsy, no dysarthria, CN's II-XI intact bilaterally and moves all extremities Psychiatric: A+Ox3, euthymic affect Skin: no rashes, normal color, warm/dry Results & Data Results & Data ([facility]) Vital Signs (Past 12 Hours) Vital Signs Temp Pulse Pulse Resp BP BP Pulse Ox 01/08/21 08:36 78 01/08/21 08:31 123 H 140/78 01/08/21 07:33 36.5 C 99 H 20 140/78 95 Laboratory Results Short CBC 01/08/21 Range/Units 06:47 WBC 5.98 (4.8-10.8) K/uL Hgb 13.6 L (14.0-18.0) g/dL Hct 40.5 L (42-52) % Plt Count 293 (130-400) K/uL [facility] 01/08/21 06:47 Sodium 140 Potassium 3.9 Chloride 109 H Carbon Dioxide 23 BUN 22 H Creatinine 0.97 Glucose 117 H Calcium 8.7 Medications Administered Current Inpatient Medications Acetaminophen (Acetaminophen 325 Mg Tab) 650 mg PO Q4H PRN PRN Reason: Pain or Fever Stop: 02/06/21 17:58 Albuterol (Albuterol Hfa 8 Gm Inhaler) 2 puffs INH PRN PRN PRN Reason: Shortness Of Breath Or Wheezin Stop: 02/06/21 17:58 Alprazolam (Alprazolam 0.5 Mg Tablet) 0.5 mg PO HS PRN PRN Reason: Sleep Stop: 02/06/21 17:58 Last Admin: 01/07/21 23:43 Dose: 0.5 mg Documented by: Apixaban (Apixaban 5 Mg Tablet) 5 mg PO BID [facility] Stop: 02/06/21 20:59 Last Admin: 01/08/21 07:55 Dose: 5 mg Documented by: Famotidine (Famotidine 20 Mg Tab) 20 mg PO HS [facility] Stop: 02/06/21 20:59 Last Admin: 01/07/21 20:15 Dose: 20 mg Documented by: Finasteride (Finasteride 5 Mg Tab) 5 mg PO QAM [facility] Stop: 02/06/21 17:29 Last Admin: 01/08/21 07:55 Dose: 5 mg Documented by: Fluticasone/Vilanterol (Fluticasone/Vilanterol 200/25mcg 14 Puffs/Inhaler) 1 puffs INH DAILY [facility] Stop: 02/07/21 08:59 Last Admin: 01/08/21 07:56 Dose: 1 puffs Documented by: Losartan Potassium (Losartan Potassium 50 Mg Tab) 50 mg PO QAM [facility] Stop: 02/07/21 08:59 Last Admin: 01/08/21 07:56 Dose: 50 mg Documented by: Magnesium Oxide (Magnesium Oxide 400 Mg Tab) 400 mg PO QAM [facility] Stop: 02/07/21 08:59 Last Admin: 01/08/21 07:55 Dose: 400 mg Documented by: Melatonin (Melatonin 3 Mg Tab) 9 mg PO HS [facility] Stop: 02/06/21 20:59 Last Admin: 01/07/21 23:43 Dose: 9 mg Documented by: Metoprolol Tartrate (Metoprolol Tartrate 1 Mg/Ml Vial) 2.5 mg IV Q6 PRN PRN Reason: HR >115 Stop: 02/06/21 17:58 Last Admin: 01/08/21 08:31 Dose: 2.5 mg Documented by: Montelukast Sodium (Montelukast Sodium 10 Mg Tablet) 10 mg PO QAM [facility] Stop: 02/07/21 08:59 Last Admin: 01/08/21 07:55 Dose: 10 mg Documented by: Oxycodone/Acetaminophen (Oxycodone/Acetaminophen 5mg/325mg Tab) 1 tab PO Q6H PRN PRN Reason: pain Stop: 01/21/21 17:58 Polyethylene Glycol (Polyethylene (Miralax) 17 Gm Pack) 17 gm PO DAILY PRN PRN Reason: Constipation Stop: 02/06/21 17:58 Rosuvastatin Calcium (Rosuvastatin Calcium 5 Mg Tab) [facility] [place] Stop: 02/07/21 08:59 Last Admin: 01/08/21 07:55 Dose: 5 mg Documented by: Sotalol HCl (Sotalol Hcl 80 Mg Tab) 80 mg PO BID [facility] Stop: 02/07/21 20:59 Tamsulosin HCl (Tamsulosin Hcl 0.4 Mg Cap) 0.4 mg [facility] [place] Stop: 02/07/21 08:59 Last Admin: 01/08/21 07:55 Dose: 0.4 mg Documented by: Vitamin D (Cholecalciferol 1,000 Units 25 Mcg Tab) 25 [facility] [place] Stop: 02/07/21 08:59 Last Admin: 01/08/21 07:55 Dose: 25 units Documented by:
[2021-01-08] MEDS: SOTALOL HCL 80 MG TAB PO SCH (20:42)
[2021-01-08] MEDS: FAMOTIDINE 20 MG TAB PO SCH (20:42)
[2021-01-08] MEDS: ALPRAZolam 0.5 MG TABLET PO PRN (22:52)
[2021-01-08] MEDS: MELATONIN 3 MG TAB PO SCH (22:52)
[2021-01-09 05:50] LABS: Hematocrit (blood only) 40.1 % (42-52); Hemoglobin 13.5 g/dL (14.0-18.0); Mean Corpuscular Hemoglobin 32.1 pg (25-34); Mean Corpuscular Hgb Conc 33.7 g/dL (32-36); Mean Corpuscular Volume 95.2 fL (80-100); Mean Platelet Volume 8.7 fL (7.4-10.4); Platelet Count 308 K/uL (130-400); RDW Coefficient of Variation 12.3 % (11.5-14.5); RDW Standard Deviation 42.3 fL (36.4-46.3); Red Blood Count 4.21 M/uL (4.7-6.1); White Blood Count 5.53 K/uL (4.8-10.8)
[2021-01-09 06:30] LABS: BUN Creatinine Ratio 25.1 (10-20); Calcium 9.1 mg/dl (8.5-10.1); Creatinine Clr Calc Pharmacy 90.8 ml/min; Est GFR (African American) 84.9 ml/min; Est GFR (Non-African American) 73.3 ml/min; Phosphorus 4.1 mg/dl (2.5-4.9)
[2021-01-09] MEDS: FINASTERIDE 5 MG TAB PO SCH (07:33)
[2021-01-09] MEDS: LOSARTAN POTASSIUM 50 MG TAB PO SCH (07:33)
[2021-01-09] MEDS: CHOLECALCIFEROL 1,000 UNITS 25 MCG TAB PO SCH (07:33)
[2021-01-09] MEDS: APIXABAN 5 MG TABLET PO SCH ×2 (07:33→20:23)
[2021-01-09] MEDS: ROSUVASTATIN CALCIUM 5 MG TAB PO SCH (07:33)
[2021-01-09] MEDS: MAGNESIUM OXIDE 400 MG TAB PO SCH (07:33)
[2021-01-09] MEDS: FLUTICASONE/VILANTEROL 200/25MCG 14 PUFFS/INHALER INH SCH (07:34)
[2021-01-09] MEDS: MONTELUKAST SODIUM 10 MG TABLET PO SCH (07:34)
[2021-01-09] MEDS: TAMSULOSIN HCL 0.4 MG CAP PO SCH (07:34)
[2021-01-09 08:19] LABS: Potassium 4.3 mmol/L (3.5-5.1)
[2021-01-09 08:20] LABS: Magnesium 2.3 mg/dl (1.8-2.4)
[2021-01-09] MEDS: SOTALOL HCL 80 MG TAB PO SCH ×2 (08:21→20:23)
--- NOTE | 2021-01-09 10:04 | Electrocardiogram Report ---
Test Reason : Blood Pressure : / mmHG Vent. Rate : 069 BPM Atrial Rate : 069 BPM P-R Int : 162 ms QRS Dur : 102 ms QT Int : 436 ms P-R-T Axes : 017 -32 000 degrees QTc Int : 467 ms Normal sinus rhythm Left axis deviation Incomplete right bundle branch block Minimal voltage criteria for LVH, may be normal variant Nonspecific T wave abnormality Abnormal ECG When compared with ECG of 08-JAN-2021 05:51, Sinus rhythm has replaced Atrial flutter Confirmed by John Paul Recio ([id number]) on 01/09/2021 10:04:32 AM Referred By: REFERRED SELF Confirmed By:John Paul Recio
--- NOTE | 2021-01-09 11:12 | Cardiology Progress Note ---
Date of Service January 09, 2021 Assessment & Plan (1) Atrial flutter with rapid ventricular response: Patient is a 70-year-old male with a history of paroxysmal atrial fibrillation/flutter with initial event occurring post orthopedic surgery in April 2020. He now represents with recurrence of atrial flutter, symptomatic Rhythm spontaneously converted to sinus after first dose of sotalol Plan: I discussed management of paroxysmal atrial flutter in detail. Given recurrence he has been gone on antiarrhythmic therapy with sotalol with successful conversion to sinus rhythm. Rhythm does appear amenable to catheter intervention if recurrence on antiarrhythmic therapy Continue inpatient monitoring now after third dose of sotalol. No QT prolongation no arrhythmias on telemetry Continue full anticoagulation with apixaban indefinitely Additional dose of furosemide orally today to aid in leg edema, BP (2) History of left knee surgery: (3) History of pulmonary embolism: No pulmonary embolus on admission CTA Admission and Anticipated Discharge Date Admission Date: January 07, 2021 Subjective Patient was seen and examined, chart, medications, telemetry reviewed. Patient feels improved. Patient spontaneously converted from atrial flutter to sinus rhythm yesterday after first dose of sotalol. No QT prolongation. Still with lower extremity edema. Pulse oximetry last evening without desaturation Physical Exam Constitutional: WD/WN, vitals as above + obese Eyes: PERRL, conjunctivae normal, anicteric sclerae ENMT: external ear and nose normal, oropharynx normal Neck: trachea midline, no thyromegaly Respiratory: normal respiratory effort, lungs clear to auscultation Cardiovascular: Rate/Rhythm: + irregularly irregular Heart Sounds: normal S1 and normal S2; no gallop and no murmur Palpation: normal PMI Vessels: normal carotid upstroke and radial pulses present; no JVD and no carotid bruit Extremities: + edema (Trace right lower extremity edema, 2-3+ left lower extremity) Gastrointestinal (Abdomen): normal bowel sounds, soft, nontender, no hepato splenomegaly Musculoskeletal: no cyanosis or clubbing, extremities motor strength 5/5 Skin: no rashes, warm and dry Neurologic: PERRL, EOMI, accommodation nl, no face palsy, no dysarthria Psychiatric: A+Ox3, euthymic affect Results & Data ([facility]) Vital Signs (Past 12 Hours) Vital Signs Temp Pulse Pulse Pulse Resp BP Pulse Ox 01/09/21 08:02 36.8 C 74 18 142/68 H 99 01/09/21 08:00 70 01/09/21 04:58 36.7 C 67 16 138/82 98 01/09/21 03:35 65 01/09/21 01:14 62 01/09/21 01:08 63 01/09/21 00:23 63 01/08/21 23:14 36.5 C 71 16 144/82 H 98 Pulse Ox 01/09/21 08:02 01/09/21 08:00 01/09/21 04:58 01/09/21 03:35 96 01/09/21 01:14 93 01/09/21 01:08 01/09/21 00:23 95 01/08/21 23:14 Laboratory Results Laboratory Results - last 24 hr 01/09/21 01/09/21 01/09/21 05:33 05:33 06:59 WBC 5.53 RBC 4.21 L Hgb 13.5 L Hct 40.1 L MCV 95.2 MCH 32.1 MCHC 33.7 RDW Std Deviation 42.3 RDW Coeff of Joe 12.3 Plt Count 308 MPV 8.7 Sodium 139 Potassium Cancelled Chloride 108 H Carbon Dioxide 26 Anion Gap 5.0 BUN 26 H Creatinine 1.03 Est Cr Clr Drug Dosing 90.8 Est GFR ( Amer) 84.9 Est GFR (Non-Af Amer) 73.3 BUN/Creatinine Ratio 25.1 H Glucose 126 H Calcium 9.1 Phosphorus 4.1 Magnesium Cancelled 01/09/21 07:51 WBC RBC Hgb Hct MCV MCH MCHC RDW Std Deviation RDW Coeff of Joe Plt Count MPV Sodium Potassium 4.3 Chloride Carbon Dioxide Anion Gap BUN Creatinine Est Cr Clr Drug Dosing Est GFR ( Amer) Est GFR (Non-Af Amer) BUN/Creatinine Ratio Glucose Calcium Phosphorus Magnesium 2.3 Medications Administered Current Medications Acetaminophen (Acetaminophen 325 Mg Tab) 650 mg PO Q4H PRN PRN Reason: Pain or Fever Stop: 02/06/21 17:58 Albuterol (Albuterol Hfa 8 Gm Inhaler) 2 puffs INH PRN PRN PRN Reason: Shortness Of Breath Or Wheezin Stop: 02/06/21 17:58 Alprazolam (Alprazolam 0.5 Mg Tablet) 0.5 mg PO HS PRN PRN Reason: Sleep Stop: 02/06/21 17:58 Last Admin: 01/08/21 22:52 Dose: 0.5 mg Documented by: Apixaban (Apixaban 5 Mg Tablet) 5 mg PO BID [facility] Stop: 02/06/21 20:59 Last Admin: 01/09/21 07:33 Dose: 5 mg Documented by: Famotidine (Famotidine 20 Mg Tab) 20 mg PO HS [facility] Stop: 02/06/21 20:59 Last Admin: 01/08/21 20:42 Dose: 20 mg Documented by: Finasteride (Finasteride 5 Mg Tab) 5 mg PO QAM [facility] Stop: 02/06/21 17:29 Last Admin: 01/09/21 07:33 Dose: 5 mg Documented by: Fluticasone/Vilanterol (Fluticasone/Vilanterol 200/25mcg 14 Puffs/Inhaler) 1 puffs INH DAILY [facility] Stop: 02/07/21 08:59 Last Admin: 01/09/21 07:34 Dose: 1 puffs Documented by: Losartan Potassium (Losartan Potassium 50 Mg Tab) 50 mg PO QAM [facility] Stop: 02/07/21 08:59 Last Admin: 01/09/21 07:33 Dose: 50 mg Documented by: Magnesium Oxide (Magnesium Oxide 400 Mg Tab) 400 mg PO QAM [facility] Stop: 02/07/21 08:59 Last Admin: 01/09/21 07:33 Dose: 400 mg Documented by: Melatonin (Melatonin 3 Mg Tab) 9 mg PO HS [facility] Stop: 02/06/21 20:59 Last Admin: 01/08/21 22:52 Dose: 9 mg Documented by: Metoprolol Tartrate (Metoprolol Tartrate 1 Mg/Ml Vial) 2.5 mg IV Q6 PRN PRN Reason: HR >115 Stop: 02/06/21 17:58 Last Admin: 01/08/21 08:31 Dose: 2.5 mg Documented by: Montelukast Sodium (Montelukast Sodium 10 Mg Tablet) 10 mg PO QAM [facility] Stop: 02/07/21 08:59 Last Admin: 01/09/21 07:34 Dose: 10 mg Documented by: Oxycodone/Acetaminophen (Oxycodone/Acetaminophen 5mg/325mg Tab) 1 tab PO Q6H PRN PRN Reason: pain Stop: 01/21/21 17:58 Polyethylene Glycol (Polyethylene (Miralax) 17 Gm Pack) 17 gm PO DAILY PRN PRN Reason: Constipation Stop: 02/06/21 17:58 Rosuvastatin Calcium (Rosuvastatin Calcium 5 Mg Tab) 5 mg PO QAM [facility] Stop: 02/07/21 08:59 Last Admin: 01/09/21 07:33 Dose: 5 mg Documented by: Sotalol HCl (Sotalol Hcl 80 Mg Tab) 80 mg PO BID [facility] Stop: 02/07/21 20:59 Last Admin: 01/09/21 08:21 Dose: 80 mg Documented by: Tamsulosin HCl (Tamsulosin Hcl 0.4 Mg Cap) 0.4 mg PO QAM [facility] Stop: 02/07/21 08:59 Last Admin: 01/09/21 07:34 Dose: 0.4 mg Documented by: Vitamin D (Cholecalciferol 1,000 Units 25 Mcg Tab) 25 units PO QAM [facility] Stop: 02/07/21 08:59 Last Admin: 01/09/21 07:33 Dose: 25 units Documented by:
[2021-01-09] MEDS ORDERED: FUROSEMIDE 20 MG TAB PO ONE (11:20)
--- NOTE | 2021-01-09 13:03 | Hospitalist Progress Note ---
Date of Service January 09, 2021 Assessment & Plan (1) Atrial fibrillation with rapid ventricular response: This is a 70-year-old male with PMH of paroxysmal A flutter/fib, history of PE on Eliquis, hypertension, hyperlipidemia, BPH and other medical problems listed below who presents with shortness of breath since his knee surgery 3 weeks ago and was found to have atrial fibrillation with RVR. ECG with A fib with RVR at 151 bpm on admission Started on diltiazem drip which has been uptitrated -heart rate now 115 Chest CTA obtained due to concern for PE from brief perioperative hold on Eliquis -no pulmonary emboli identified. No acute process within the chest Eliquis dose decreased by orthopedic service following knee surgery to 2.5 mg BID a few weeks ago Discussed case with Dr. Kaur, who agreed with increasing Eliquis back to 5mg BID Continue diltiazem drip on the floor, Lopressor 50mg BID PRN IV Lopressor 2.5mg IV Q6H PRN for HR >115 if BP allows Routine 2D echo-pending EKG 1 01/08/2021 showed a flutter with variable block rate of 82/min Cardiology consulted -appreciate input and recommendation Metoprolol and diltiazem have been discontinued He has been started with sotalol at a dose of 80 mg twice daily Will need to stay in the telemetry unit for the next few days Reverted to sinus rhythm on sotalol Denies any symptoms and likely be discharged tomorrow Status post left knee surgery about 3 weeks ago He was on Eliquis 2.5 mg twice daily as a prophylactic dose following the surgery CTA did not show any pulmonary embolism He is back on full doses of Eliquis PT and OT evaluation have been ordered He was to continue with PT and OT as an outpatient Bilateral leg edema Left more than the right, status post left knee surgery about 3 weeks ago Has been getting Lasix and edema is improving (2) History of pulmonary embolism: PE following hip surgery in Apr 2020 Continue Eliquis (3) HTN (hypertension): Continue Lopressor BID, Losartan (4) BPH (benign prostatic hyperplasia): Continue Flomax. Ordered Finasteride, which was just prescribed by PCP (5) Insomnia: Suspicion for REBEKAH with sleep study scheduled in February Continue home Alprazolam and Melatonin HS Supplemental O2 if needed Nocturnal pulse oximetry has been ordered by the railway signal operator Will need outpatient sleep study (6) Asthma: Stable. Continue Advair inh, albuterol PRN DVT Ppx: Eliquis Code status: FULL PCP: Joel Dispo: Admitted to PCU. Plan to return home once medically stable. Admission and Anticipated Discharge Date Admission Date: January 07, 2021 Subjective 01/08/2021 The patient was seen and examined in telemetry unit He has been feeling much better and denies any shortness of breath at rest No chest pain and/or palpitation Denies any significant pain 01/09/2021 The patient was seen and examined in telemetry unit He is out of bed on a chair and denies any symptoms and wants to go home, maybe tomorrow He denies any palpitation, any shortness of breath His leg edema is persisting Review of Systems Review of Systems: All systems reviewed and are unremarkable except as noted below Respiratory: no cough and no dyspnea Cardiovascular: no chest pain and no palpitations Physical Exam Physical Exam: General Appearance: WD/WN, vitals as above, NAD, sitting up in bed, pleasant, conversing easily, obese Head: normocephalic, atraumatic Eyes: normal inspection, PERRL, conjunctivae normal, anicteric sclerae ENT: external ear and nose normal, oropharynx normal Neck: normal visual inspection, trachea midline, no thyromegaly Respiratory: normal respiratory effort, lungs clear to auscultation, no wheeze, rales, rhonchi. No accessory muscle use Cardiovascular: irregular rate & rhythm, no murmur appreciated, normal peripheral pulses, 1+ BLE edema, left more than the right. vessels: no JVD Chest: normal inspection of chest Abdomen/GI: normal bowel sounds, soft, nontender, no hepatosplenomegaly Extremities/Musculoskeletal: no cyanosis or clubbing, status post left knee surgery Neurologic: PERRL, EOMI, accommodation nl, no face palsy, no dysarthria, CN's II-XI intact bilaterally and moves all extremities Psychiatric: A+Ox3, euthymic affect Skin: no rashes, normal color, warm/dry Results & Data Results & Data ([facility]) Vital Signs (Past 12 Hours) Vital Signs Temp Pulse Pulse Pulse Resp BP Pulse Ox 01/09/21 11:41 36.9 C 66 18 134/78 99 01/09/21 08:02 36.8 C 74 18 142/68 H 99 01/09/21 08:00 70 01/09/21 04:58 36.7 C 67 16 138/82 98 01/09/21 03:35 65 01/09/21 01:14 62 01/09/21 01:08 63 Pulse Ox 01/09/21 11:41 01/09/21 08:02 01/09/21 08:00 01/09/21 04:58 01/09/21 03:35 96 01/09/21 01:14 93 01/09/21 01:08 Laboratory Results Short CBC 01/09/21 Range/Units 05:33 WBC 5.53 (4.8-10.8) K/uL Hgb 13.5 L (14.0-18.0) g/dL Hct 40.1 L (42-52) % Plt Count 308 (130-400) K/uL BMP 01/09/21 01/09/21 01/09/21 05:33 06:59 07:51 Sodium 139 Potassium Cancelled 4.3 Chloride 108 H Carbon Dioxide 26 BUN 26 H Creatinine 1.03 Glucose 126 H Calcium 9.1 Medications Administered Current Inpatient Medications Acetaminophen (Acetaminophen 325 Mg Tab) 650 mg PO Q4H PRN PRN Reason: Pain or Fever Stop: 02/06/21 17:58 Albuterol (Albuterol Hfa 8 Gm Inhaler) 2 puffs INH PRN PRN PRN Reason: Shortness Of Breath Or Wheezin Stop: 02/06/21 17:58 Alprazolam (Alprazolam 0.5 Mg Tablet) 0.5 mg PO HS PRN PRN Reason: Sleep Stop: 02/06/21 17:58 Last Admin: 01/08/21 22:52 Dose: 0.5 mg Documented by: Apixaban (Apixaban 5 Mg Tablet) 5 mg PO BID [facility] Stop: 02/06/21 20:59 Last Admin: 01/09/21 07:33 Dose: 5 mg Documented by: Famotidine (Famotidine 20 Mg Tab) 20 mg PO HS [facility] Stop: 02/06/21 20:59 Last Admin: 01/08/21 20:42 Dose: 20 mg Documented by: Finasteride (Finasteride 5 Mg Tab) 5 mg PO QAM [facility] Stop: 02/06/21 17:29 Last Admin: 01/09/21 07:33 Dose: 5 mg Documented by: Fluticasone/Vilanterol (Fluticasone/Vilanterol 200/25mcg 14 Puffs/Inhaler) 1 puffs INH DAILY [facility] Stop: 02/07/21 08:59 Last Admin: 01/09/21 07:34 Dose: 1 puffs Documented by: Losartan Potassium (Losartan Potassium 50 Mg Tab) 50 mg PO QAM [facility] Stop: 02/07/21 08:59 Last Admin: 01/09/21 07:33 Dose: 50 mg Documented by: Magnesium Oxide (Magnesium Oxide 400 Mg Tab) 400 mg PO QAM [facility] Stop: 02/07/21 08:59 Last Admin: 01/09/21 07:33 Dose: 400 mg Documented by: Melatonin (Melatonin 3 Mg Tab) 9 mg PO [facility] Stop: 02/06/21 20:59 Last Admin: 01/08/21 22:52 Dose: 9 mg Documented by: Metoprolol Tartrate (Metoprolol Tartrate 1 Mg/Ml Vial) 2.5 mg IV Q6 PRN PRN Reason: HR >115 Stop: 02/06/21 17:58 Last Admin: 01/08/21 08:31 Dose: 2.5 mg Documented by: Montelukast Sodium (Montelukast Sodium 10 Mg Tablet) [facility] [place]: 02/07/21 08:59 Last Admin: 01/09/21 07:34 Dose: 10 mg Documented by: Oxycodone/Acetaminophen (Oxycodone/Acetaminophen 5mg/325mg Tab) 1 tab PO Q6H PRN PRN Reason: pain Stop: 01/21/21 17:58 Polyethylene Glycol (Polyethylene (Miralax) 17 Gm Pack) 17 gm PO DAILY PRN PRN Reason: Constipation Stop: 02/06/21 17:58 Rosuvastatin Calcium (Rosuvastatin Calcium 5 Mg Tab) [facility] [place] Stop: 02/07/21 08:59 Last Admin: 01/09/21 07:33 Dose: 5 mg Documented by: Sotalol HCl (Sotalol Hcl 80 Mg Tab) 80 mg PO BID [facility] Stop: 02/07/21 20:59 Last Admin: 01/09/21 08:21 Dose: 80 mg Documented by: Tamsulosin HCl (Tamsulosin Hcl 0.4 Mg Cap) 0.4 mg PO [facility] Stop: 02/07/21 08:59 Last Admin: 01/09/21 07:34 Dose: 0.4 mg Documented by: Vitamin D (Cholecalciferol 1,000 Units 25 Mcg Tab) 25 units PO [facility] Stop: 02/07/21 08:59 Last Admin: 01/09/21 07:33 Dose: 25 units Documented by:
[2021-01-09] MEDS: FAMOTIDINE 20 MG TAB PO SCH (20:24)
[2021-01-09] MEDS: ALPRAZolam 0.5 MG TABLET PO PRN (22:54)
[2021-01-09] MEDS: MELATONIN 3 MG TAB PO SCH (22:54)
[2021-01-10 07:10] LABS: BUN Creatinine Ratio 21.2 (10-20); Calcium 8.8 mg/dl (8.5-10.1); Creatinine Clr Calc Pharmacy 94.7 ml/min; Est GFR (African American) 89.1 ml/min; Est GFR (Non-African American) 76.8 ml/min; Magnesium 2.3 mg/dl (1.8-2.4); Potassium 4.1 mmol/L (3.5-5.1)
[2021-01-10] MEDS: TAMSULOSIN HCL 0.4 MG CAP PO SCH (08:01)
[2021-01-10] MEDS: LOSARTAN POTASSIUM 50 MG TAB PO SCH (08:01)
[2021-01-10] MEDS: ROSUVASTATIN CALCIUM 5 MG TAB PO SCH (08:02)
[2021-01-10] MEDS: APIXABAN 5 MG TABLET PO SCH (08:02)
[2021-01-10] MEDS: FINASTERIDE 5 MG TAB PO SCH (08:02)
[2021-01-10] MEDS: MONTELUKAST SODIUM 10 MG TABLET PO SCH (08:02)
[2021-01-10] MEDS: SOTALOL HCL 80 MG TAB PO SCH (08:02)
[2021-01-10] MEDS: CHOLECALCIFEROL 1,000 UNITS 25 MCG TAB PO SCH (08:02)
[2021-01-10] MEDS: MAGNESIUM OXIDE 400 MG TAB PO SCH (08:02)
[2021-01-10] MEDS: FLUTICASONE/VILANTEROL 200/25MCG 14 PUFFS/INHALER INH SCH (08:02)
--- NOTE | 2021-01-10 10:14 | Cardiology Progress Note ---
Date of Service January 10, 2021 Assessment & Plan (1) Atrial flutter with rapid ventricular response: Patient is a 70-year-old male with a history of paroxysmal atrial fibrillation/flutter with initial event occurring post orthopedic surgery in April 2020. He now represents with recurrence of atrial flutter, symptomatic, post left knee replacement. Rhythm spontaneously converted to sinus after first dose of sotalol Maintaining NSR on sotalol 80 mg BID. EKG demonstrates stable QT/QTc measurements. Discharge on sotalol 80 mg BID and Eliquis 5 mg BID. Metoprolol discontinued. Case discussed with Dr. Crisostomo. Will arrange cardiology f/u in 2-[address] Lugo (patient's primary grill associate) or AP. Patient will be notified regarding this appointment. (2) History of left knee surgery: (3) History of pulmonary embolism: No pulmonary embolus on admission CTA Admission and Anticipated Discharge Date Admission Date: January 07, 2021 Supervising Physician Co-Signing Physician Notes Supervising Physician Attestation: I have personally performed a history and physical examination on the patient. I agree with the physician community program assistant's findings and plan as documented with the following additions. Subjective: Mr Cheney states he feels well. Denies palpitations. Telemetry reveals SR in the 70s with occasional PACs. No atrial flutter since 01/08/21. Exam: Temp Pulse Resp BP Pulse Ox 36.6 C 61 19 119/78 97 01/10/21 06:59 01/10/21 08:00 01/10/21 06:59 01/10/21 06:59 01/10/21 06:59 Gen: AAOx 3. Lungs: CTAB CV: regular no murmur Data: EKG reveals SR at 64, QTc 460 ms. Assessment and Plan: Atrial flutter with rapid ventricular response: Stable for discharge on sotalol 80 mg two times per day. Sotalol replaces metoprolol. Discharge on Eliquis 5 mg two time per day (stroke prophylaxis dose for AF rather than DVT prophylaxis dose). Thaddeus Crisostomo, DO Subjective Patient resting comfortably in chair. No palpitations or tachypalpitations. No dizziness or lightheadedness. No chest pain or dyspnea. Left knee with mild pain and swelling. Review of Systems Review of Systems: All systems reviewed & are unremarkable except as noted in HPI & below Physical Exam Constitutional: WD/WN, vitals as above + obese Eyes: PERRL, conjunctivae normal, anicteric sclerae ENMT: external ear and nose normal, oropharynx normal Neck: trachea midline, no thyromegaly Respiratory: normal respiratory effort, lungs clear to auscultation Cardiovascular: Rate/Rhythm: regular rate and regular rhythm Heart Sounds: normal S1 and normal S2; no gallop and no murmur Palpation: normal PMI Vessels: normal carotid upstroke and radial pulses present; no JVD and no carotid bruit Extremities: + edema (Trace right lower extremity edema, 2-3+ left lower extremity) Gastrointestinal (Abdomen): normal bowel sounds, soft, nontender, no hepatosplenomegaly Musculoskeletal: no cyanosis or clubbing, extremities motor strength 5/5 Skin: no rashes, warm and dry Neurologic: PERRL, EOMI, accommodation nl, no face palsy, no dysarthria Psychiatric: A+Ox3, euthymic affect Results & Data ([facility]) Vital Signs (Past 12 Hours) Vital Signs Temp Pulse Pulse Resp BP Pulse Ox 01/10/21 08:00 61 01/10/21 06:59 36.6 C 66 19 119/78 97 01/10/21 04:38 36.6 C 72 16 132/79 95 01/09/21 23:05 36.4 C L 70 18 135/84 94 01/09/21 23:04 78 Laboratory Results 01/10/21 Range/Units 06:09 Sodium 140 (136-145) mmol/L Potassium 4.1 (3.5-5.1) mmol/L Chloride 106 (98-107) mmol/L Carbon Dioxide 27 (21-32) mmol/L Anion Gap 7.0 (3-11) BUN 21 H (7-18) mg/dl Creatinine 0.99 (0.6-1.4) mg/dl Est Cr Clr Drug Dosing 94.7 ml/min Est GFR ( Amer) 89.1 ml/min Est GFR (Non-Af Amer) 76.8 ml/min BUN/Creatinine Ratio 21.2 H (10-20) Glucose 105 H (70-99) mg/dl Calcium 8.8 (8.5-10.1) mg/dl Magnesium 2.3 (1.8-2.4) mg/dl Diagnostic Findings Telem reviewed: NSR with rare PAC's. No atrial fibrillation in the last 48 hours EKG this morning: Normal sinus rhythm Left axis deviation Minimal voltage criteria for LVH, may be normal variant No change from previous QT/QTc 446/460 ms Medications Administered Current Inpatient Medications Acetaminophen (Acetaminophen 325 Mg Tab) 650 mg PO Q4H PRN PRN Reason: Pain or Fever Stop: 02/06/21 17:58 Albuterol (Albuterol Hfa 8 Gm Inhaler) 2 puffs INH PRN PRN PRN Reason: Shortness Of Breath Or Wheezin Stop: 02/06/21 17:58 Alprazolam (Alprazolam 0.5 Mg Tablet) 0.5 mg PO HS PRN PRN Reason: Sleep Stop: 02/06/21 17:58 Last Admin: 01/09/21 22:54 Dose: 0.5 mg Documented by: Apixaban (Apixaban 5 Mg Tablet) 5 mg PO BID TERRY Stop: 02/06/21 20:59 Last Admin: 01/10/21 08:02 Dose: 5 mg Documented by: Famotidine (Famotidine 20 Mg Tab) 20 mg PO HS TERRY Stop: 02/06/21 20:59 Last Admin: 01/09/21 20:24 Dose: 20 mg Documented by: Finasteride (Finasteride 5 Mg Tab) 5 mg PO QAM TERRY Stop: 02/06/21 17:29 Last Admin: 01/10/21 08:02 Dose: 5 mg Documented by: Fluticasone/Vilanterol (Fluticasone/Vilanterol 200/25mcg 14 Puffs/Inhaler) 1 puffs INH DAILY TERRY Stop: 02/07/21 08:59 Last Admin: 01/10/21 08:02 Dose: 1 puffs Documented by: Losartan Potassium (Losartan Potassium 50 Mg Tab) 50 mg PO QAM TERRY Stop: 02/07/21 08:59 Last Admin: 01/10/21 08:01 Dose: 50 mg Documented by: Magnesium Oxide (Magnesium Oxide 400 Mg Tab) 400 mg PO QAM TERRY Stop: 02/07/21 08:59 Last Admin: 01/10/21 08:02 Dose: 400 mg Documented by: Melatonin (Melatonin 3 Mg Tab) 9 mg PO HS TERRY Stop: 02/06/21 20:59 Last Admin: 01/09/21 22:54 Dose: 9 mg Documented by: Metoprolol Tartrate (Metoprolol Tartrate 1 Mg/Ml Vial) 2.5 mg IV Q6 PRN PRN Reason: HR >115 Stop: 02/06/21 17:58 Last Admin: 01/08/21 08:31 Dose: 2.5 mg Documented by: Montelukast Sodium (Montelukast Sodium 10 Mg Tablet) 10 mg PO QAM [facility] Stop: 02/07/21 08:59 Last Admin: 01/10/21 08:02 Dose: 10 mg Documented by: Oxycodone/Acetaminophen (Oxycodone/Acetaminophen 5mg/325mg Tab) 1 tab PO Q6H PRN PRN Reason: pain Stop: 01/21/21 17:58 Polyethylene Glycol (Polyethylene (Miralax) 17 Gm Pack) 17 gm PO DAILY PRN PRN Reason: Constipation Stop: 02/06/21 17:58 Rosuvastatin Calcium (Rosuvastatin Calcium 5 Mg Tab) [facility] Stop: 02/07/21 08:59 Last Admin: 01/10/21 08:02 Dose: 5 mg Documented by: Sotalol HCl (Sotalol Hcl 80 Mg Tab) 80 mg PO BID [facility] Stop: 02/07/21 20:59 Last Admin: 01/10/21 08:02 Dose: 80 mg Documented by: Tamsulosin HCl (Tamsulosin Hcl 0.4 Mg Cap) 0.4 mg PO QAM [facility] Stop: 02/07/21 08:59 Last Admin: 01/10/21 08:01 Dose: 0.4 mg Documented by: Vitamin D (Cholecalciferol 1,000 Units 25 Mcg Tab) 25 units PO QAM [facility] Stop: 02/07/21 08:59 Last Admin: 01/10/21 08:02 Dose: 25 units Documented by:
--- NOTE | 2021-01-10 11:17 | Hospitalist Progress Note ---
Date of Service January 10, 2021 Assessment & Plan (1) Atrial fibrillation with rapid ventricular response: This is a 70-year-old male with PMH of paroxysmal A flutter/fib, history of PE on Eliquis, hypertension, hyperlipidemia, BPH and other medical problems listed below who presents with shortness of breath since his knee surgery 3 weeks ago and was found to have atrial fibrillation with RVR. ECG with A fib with RVR at 151 bpm on admission Started on diltiazem drip which has been uptitrated -heart rate now 115 Chest CTA obtained due to concern for PE from brief perioperative hold on Eliquis -no pulmonary emboli identified. No acute process within the chest Eliquis dose decreased by orthopedic service following knee surgery to 2.5 mg BID a few weeks ago Discussed case with Dr. Kaur, who agreed with increasing Eliquis back to 5mg BID Continue diltiazem drip on the floor, Lopressor 50mg BID PRN IV Lopressor 2.5mg IV Q6H PRN for HR >115 if BP allows Routine 2D echo-pending EKG 1 01/08/2021 showed a flutter with variable block rate of 82/min Cardiology consulted -appreciate input and recommendation Metoprolol and diltiazem have been discontinued He has been started with sotalol at a dose of 80 mg twice daily Will need to stay in the telemetry unit for the next few days Reverted to sinus rhythm on sotalol Remains in sinus rhythm and without any symptoms Will be discharged home this afternoon-we will have follow-up appointment with Dr. Lugo as an outpatient Status post left knee surgery about 3 weeks ago He was on Eliquis 2.5 mg twice daily as a prophylactic dose following the surgery CTA did not show any pulmonary embolism He is back on full doses of Eliquis PT and OT evaluation have been ordered He was to continue with PT and OT as an outpatient Bilateral leg edema Left more than the right, status post left knee surgery about 3 weeks ago Has been getting Lasix and edema is improving (2) History of pulmonary embolism: PE following hip surgery in Apr 2020 Continue Eliquis (3) HTN (hypertension): Continue Lopressor BID, Losartan (4) BPH (benign prostatic hyperplasia): Continue Flomax. Ordered Finasteride, which was just prescribed by PCP (5) Insomnia: Suspicion for REBEKAH with sleep study scheduled in February Continue home Alprazolam and Melatonin HS Supplemental O2 if needed Nocturnal pulse oximetry has been ordered by the regrind mill operator Will need outpatient sleep study (6) Asthma: Stable. Continue Advair inh, albuterol PRN DVT Ppx: Eliquis Code status: FULL PCP: Joel Dispo: Admitted to PCU. Plan to return home once medically stable. Discharge home this afternoon Admission and Anticipated Discharge Date Admission Date: January 07, 2021 Subjective 01/08/2021 The patient was seen and examined in telemetry unit He has been feeling much better and denies any shortness of breath at rest No chest pain and/or palpitation Denies any significant pain 01/09/2021 The patient was seen and examined in telemetry unit He is out of bed on a chair and denies any symptoms and wants to go home, maybe tomorrow He denies any palpitation, any shortness of breath His leg edema is persisting 01/10/2021 The patient was seen and examined in telemetry unit He has been feeling a lot better and denies any palpitation and/or chest pain His shortness of breath is improved His pain in the left knee is a little worse with exertion and activity He remains in sinus rhythm and will be discharged home this afternoon Review of Systems Review of Systems: All systems reviewed and are unremarkable except as noted below Musculoskeletal: Left knee pain Physical Exam Physical Exam: General Appearance: WD/WN, vitals as above, NAD, sitting up in bed, pleasant, conversing easily, obese Head: normocephalic, atraumatic Eyes: normal inspection, PERRL, conjunctivae normal, anicteric sclerae ENT: external ear and nose normal, oropharynx normal Neck: normal visual inspection, trachea midline, no thyromegaly Respiratory: normal respiratory effort, lungs clear to auscultation, no wheeze, rales, rhonchi. No accessory muscle use Cardiovascular: Regular rate and rhythm, no murmur appreciated, normal peripheral pulses, 1+ BLE edema, left more than the right. vessels: no JVD Chest: normal inspection of chest Abdomen/GI: normal bowel sounds, soft, nontender, no hepatosplenomegaly Extremities/Musculoskeletal: no cyanosis or clubbing, status post left knee surgery Neurologic: PERRL, EOMI, accommodation nl, no face palsy, no dysarthria, CN's II-XI intact bilaterally and moves all extremities Psychiatric: A+Ox3, euthymic affect Skin: no rashes, normal color, warm/dry Results & Data Results & Data ([facility]) Vital Signs (Past 12 Hours) Vital Signs Temp Pulse Pulse Resp BP Pulse Ox 01/10/21 11:03 36.7 C 65 19 128/79 98 01/10/21 08:00 61 01/10/21 06:59 36.6 C 66 19 119/78 97 01/10/21 04:38 36.6 C 72 16 132/79 95 Laboratory Results BMP 01/10/21 06:09 Sodium 140 Potassium 4.1 Chloride 106 Carbon Dioxide 27 BUN 21 H Creatinine 0.99 Glucose 105 H Calcium 8.8 Medications Administered Current Inpatient Medications Acetaminophen (Acetaminophen 325 Mg Tab) 650 mg PO Q4H PRN PRN Reason: Pain or Fever Stop: 02/06/21 17:58 Albuterol (Albuterol Hfa 8 Gm Inhaler) 2 puffs INH PRN PRN PRN Reason: Shortness Of Breath Or Wheezin Stop: 02/06/21 17:58 Alprazolam (Alprazolam 0.5 Mg Tablet) 0.5 mg PO HS PRN PRN Reason: Sleep Stop: 02/06/21 17:58 Last Admin: 01/09/21 22:54 Dose: 0.5 mg Documented by: Apixaban (Apixaban 5 Mg Tablet) 5 mg PO BID TERRY Stop: 02/06/21 20:59 Last Admin: 01/10/21 08:02 Dose: 5 mg Documented by: Famotidine (Famotidine 20 Mg Tab) 20 mg PO HS TERRY Stop: 02/06/21 20:59 Last Admin: 01/09/21 20:24 Dose: 20 mg Documented by: Finasteride (Finasteride 5 Mg Tab) 5 mg PO QAM [facility]ERR[facility] Stop: 02/06/21 17:29 Last Admin: 01/10/21 08:02 Dose: 5 mg Documented by: Fluticasone/Vilanterol (Fluticasone/Vilanterol 200/25mcg 14 Puffs/Inhaler) 1 puffs INH DAILY TERRY Stop: 02/07/21 08:59 Last Admin: 01/10/21 08:02 Dose: 1 puffs Documented by: Losartan Potassium (Losartan Potassium 50 Mg Tab) [facility] [place] Stop: 02/07/21 08:59 Last Admin: 01/10/21 08:01 Dose: 50 mg Documented by: Magnesium Oxide (Magnesium Oxide 400 Mg Tab) 400 mg PO QAM [facility] Stop: 02/07/21 08:59 Last Admin: 01/10/21 08:02 Dose: 400 mg Documented by: Melatonin (Melatonin 3 Mg Tab) 9 mg PO HS [facility] Stop: 02/06/21 20:59 Last Admin: 01/09/21 22:54 Dose: 9 mg Documented by: Metoprolol Tartrate (Metoprolol Tartrate 1 Mg/Ml Vial) 2.5 mg IV Q6 PRN PRN Reason: HR >115 Stop: 02/06/21 17:58 Last Admin: 01/08/21 08:31 Dose: 2.5 mg Documented by: Montelukast Sodium (Montelukast Sodium 10 Mg Tablet) 10 mg PO [facility] Stop: 02/07/21 08:59 Last Admin: 01/10/21 08:02 Dose: 10 mg Documented by: Oxycodone/Acetaminophen (Oxycodone/Acetaminophen 5mg/325mg Tab) 1 tab PO Q6H PRN PRN Reason: pain Stop: 01/21/21 17:58 Polyethylene Glycol (Polyethylene (Miralax) 17 Gm Pack) 17 gm PO DAILY PRN PRN Reason: Constipation Stop: 02/06/21 17:58 Rosuvastatin Calcium (Rosuvastatin Calcium 5 Mg Tab) 5 mg PO [facility] Stop: 02/07/21 08:59 Last Admin: 01/10/21 08:02 Dose: 5 mg Documented by: Sotalol HCl (Sotalol Hcl 80 Mg Tab) 80 mg PO BID [facility] Stop: 02/07/21 20:59 Last Admin: 01/10/21 08:02 Dose: 80 mg Documented by: Tamsulosin HCl (Tamsulosin Hcl 0.4 Mg Cap) 0.4 mg [facility] [place] Stop: 02/07/21 08:59 Last Admin: 01/10/21 08:01 Dose: 0.4 mg Documented by: Vitamin D (Cholecalciferol 1,000 Units 25 Mcg Tab) 25 units [facility] [place] Stop: 02/07/21 08:59 Last Admin: 01/10/21 08:02 Dose: 25 units Documented by:
--- NOTE | 2021-01-10 12:41 | Electrocardiogram Report ---
Test Reason : Blood Pressure : / mmHG Vent. Rate : 064 BPM Atrial Rate : 064 BPM P-R Int : 158 ms QRS Dur : 106 ms QT Int : 446 ms P-R-T Axes : 004 -34 -04 degrees QTc Int : 460 ms Normal sinus rhythm Left axis deviation Minimal voltage criteria for LVH, may be normal variant Abnormal ECG When compared with ECG of 09-JAN-2021 05:07, No significant change was found Confirmed by Mansoor Jacobs ([id number] on 01/10/2021 12:40:19 PM Referred By: REFERRED SELF Confirmed By:Marcello Jacobs
--- NOTE | 2021-01-11 07:29 | Discharge Summary ---
Date of Service January 11, 2021 Admission HPI Per Admitting Provider This is a 70-year-old male with PMH of paroxysmal A flutter/fib, history of PE on Eliquis, hypertension, hyperlipidemia, BPH and other medical problems listed below who presents with shortness of breath since his knee surgery 3 weeks ago. Has history of surgery last April with development of PE. Has been on Eliquis for this until holding for a total of 5 days perioperatively for knee surgery a few weeks ago. Has been feeling short of breath for the past month that is progressively worsened. Also feeling intermittently lightheaded. Denies any visual changes, chest pain, palpitations. Denies near syncope. Does have history of paroxysmal a flutter/fib for which she follows with Dr. Lugo in cardiology clinic and is on Lopressor 50mg BID for rate control and Eliquis 5 mg twice daily for anticoagulation. Has not been as active as usual, per . Attributed some of that to recent orthopedic surgeries. Decreased appetite as well with some reported weight loss. Denies any fever, chills, headache, sore throat, nausea, vomiting, abdominal pain, dysuria, diarrhea constipation. Worsening BPH symptoms lately and is on Flomax. PCP recently prescribed finasteride which patient has not had the chance to nut picker yet. Endorses rare alcohol use. Admission Exam Per Admitting Provider Physical Exam: General Appearance: WD/WN, vitals as above, NAD, sitting up in bed, pleasant, conversing easily, obese Head: normocephalic, atraumatic Eyes: normal inspection, PERRL, conjunctivae normal, anicteric sclerae ENT: external ear and nose normal, oropharynx normal Neck: normal visual inspection, trachea midline, no thyromegaly Respiratory: normal respiratory effort, lungs clear to auscultation, no wheeze, rales, rhonchi. No accessory muscle use Cardiovascular: irregular rate & rhythm, no murmur appreciated, normal peripheral pulses, trace BLE edema. Vessels: no JVD Chest: normal inspection of chest Abdomen/GI: normal bowel sounds, soft, nontender, no hepatosplenomegaly Extremities/Musculoskeletal: no cyanosis or clubbing, extremities motor strength 5/5 Neurologic: PERRL, EOMI, accommodation nl, no face palsy, no dysarthria, CN's II-XI intact bilaterally and moves all extremities Psychiatric: A+Ox3, euthymic affect Skin: no rashes, normal color, warm/dry Principal Diagnosis A. fib with RVR, status post left knee surgery, history of pulmonary embolism, hypertension Discharge Exam Constitutional WD/WN, vitals as above + obese Eyes PERRL, conjunctivae normal, anicteric sclerae ENMT external ear and nose normal, oropharynx normal Neck trachea midline, no thyromegaly Respiratory normal respiratory effort, lungs clear to auscultation Cardiovascular Rate/Rhythm: regular rate, regular rhythm and + irregularly irregular Heart Sounds: normal S1 and normal S2; no gallop and no murmur Palpation: normal PMI Vessels: normal carotid upstroke and radial pulses present; no JVD and no carotid bruit Extremities: + edema (Trace right lower extremity edema, 2-3+ left lower extremity) Gastrointestinal (Abdomen) normal bowel sounds, soft, nontender, no hepatosplenomegaly Musculoskeletal no cyanosis or clubbing, extremities motor strength 5/5 Skin no rashes, warm and dry Neurologic PERRL, EOMI, accommodation nl, no face palsy, no dysarthria Psychiatric A+Ox3, euthymic affect Discharge Data Allergies Allergy/AdvReac Type Severity Reaction Status Date / Time ampicillin Allergy Intermediate AT [facility] Verified 01/07/21 15:25 AGE - RASH / BLISTERS Consultations 01/07/21 15:32 ED Decision to Admit Stat 01/07/21 17:59 Consult Cardiology Routine Ordered Studies 01/07/21 14:01 CT angio chest PE protocol Stat Hospital Course (1) Atrial fibrillation with rapid ventricular response: This is a 70-year-old male with PMH of paroxysmal A flutter/fib, history of PE on Eliquis, hypertension, hyperlipidemia, BPH and other medical problems listed below who presents with shortness of breath since his knee surgery 3 weeks ago and was found to have atrial fibrillation with RVR. ECG with A fib with RVR at 151 bpm on admission Started on diltiazem drip which has been uptitrated -heart rate now 115 Chest CTA obtained due to concern for PE from brief perioperative hold on Eliquis -no pulmonary emboli identified. No acute process within the chest Eliquis dose decreased by orthopedic service following knee surgery to 2.5 mg BID a few weeks ago Discussed case with Dr. Kaur, who agreed with increasing Eliquis back to 5mg BID Continue diltiazem drip on the floor, Lopressor 50mg BID PRN IV Lopressor 2.5mg IV Q6H PRN for HR >115 if BP allows Routine 2D echo-pending EKG 1 01/08/2021 showed a flutter with variable block rate of 82/min Cardiology consulted -appreciate input and recommendation Metoprolol and diltiazem have been discontinued He has been started with sotalol at a dose of 80 mg twice daily Will need to stay in the telemetry unit for the next few days Reverted to sinus rhythm on sotalol Remains in sinus rhythm and without any symptoms Will be discharged home this afternoon-we will have follow-up appointment with Dr. Lugo as an outpatient Status post left knee surgery about 3 weeks ago He was on Eliquis 2.5 mg twice daily as a prophylactic dose following the surgery CTA did not show any pulmonary embolism He is back on full doses of Eliquis PT and OT evaluation have been ordered He was to continue with PT and OT as an outpatient Bilateral leg edema Left more than the right, status post left knee surgery about 3 weeks ago Has been getting Lasix and edema is improving (2) History of pulmonary embolism: PE following hip surgery in Apr 2020 Continue Eliquis (3) HTN (hypertension): Continue Lopressor BID, Losartan (4) BPH (benign prostatic hyperplasia): Continue Flomax. Ordered Finasteride, which was just prescribed by PCP (5) Insomnia: Suspicion for REBEKAH with sleep study scheduled in February Continue home Alprazolam and Melatonin HS Supplemental O2 if needed Nocturnal pulse oximetry has been ordered by the plow and boring machine tender Will need outpatient sleep study (6) Asthma: Stable. Continue Advair inh, albuterol PRN DVT Ppx: Eliquis Code status: FULL PCP: Joel Dispo: Admitted to PCU. Plan to return home once medically stable. Discharge home this afternoon Total Time Total Time Spent Total Time Spent (In Minutes): 35 minutes Total Time Includes: Examination of the Patient, Discharge Planning, Medication Reconciliation and Communication With Other Providers Discharge Plan Discharge Items Patient Disposition: Home - Home Health Services Reason For Visit: A FIB WITH RVR Discharge Diagnosis: A. fib with RVR, status post left knee surgery, history of pulmonary embolism, hypertension Condition on Discharge: Fair Activity: Resume your previous activity Activity Comment: Continue outpatient PT and OT Non-emergency contact: Primary Care Provider Call non-emergency contact if: you have any medication questions and your symptoms worsen Follow-up/Referrals: Mark Maldonado DO [Primary Care Provider] - (Date & Time 01/14/2021 12:00 PM Provider Mark Maldonado DO Department [facility] ) Diet: Heart Healthy Addtl Attending Provider Instructions: Please take precautions to avoid fall Take your Eliquis as directed Sotalol should be taken regularly as advised Your metoprolol has been discontinued Eliquis dose is changed to 5 mg twice daily. [facility] cardiology will make an appointment for follow-up Keep follow-up appointments with your primary care physician and orthopedic surgeon Pending Studies at Discharge: No Stand-Alone Forms: My [employer], Smoking Cessation Medications and DC Order Prescriptions: New sotalol 80 mg Tablet 80 mg PO BID 30 Days Qty: 60 RF: 0 Eliquis 5 mg Tablet 5 mg PO BID 30 Days Qty: 60 RF: 0 Continued losartan 50 mg Tablet 50 mg PO QAM RF: 0 alprazolam 0.5 mg Tablet 0.5 mg PO HS PRN (Reason: Sleep) RF: 0 famotidine 20 mg Tablet 20 mg PO HS RF: 0 cholecalciferol (vitamin D3) [Vitamin D3] 25 mcg (1,000 unit) Tablet 25 mcg PO QAM RF: 0 melatonin 5 mg Tablet 10 mg PO HS RF: 0 turmeric 400 mg Capsule 500 mg PO QAM RF: 0 montelukast 10 mg Tablet 10 mg PO QAM RF: 0 magnesium 250 mg Tablet 250 mg PO QAM RF: 0 rosuvastatin 5 mg Tablet 5 mg PO QAM RF: 0 tamsulosin 0.4 mg Capsule 0.4 mg PO QAM RF: 0 Advair HFA 115-21 mcg/actuation Hfa Aerosol Inhaler 1 puff INHALATION BID RF: 0 albuterol sulfate 90 mcg/actuation Hfa Aerosol Inhaler 2 puff INHALATION DIRECTED PRN (Reason: Shortness Of Breath Or Wheezing) RF: 0 potassium gluconate 600 mg (99 mg) Tablet 600 mg PO QAM RF: 0 oxycodone-acetaminophen [Percocet] 5-325 mg tablet 1 tab PO Q6H PRN (Reason: pain) Qty: 30 RF: 0 Discontinued metoprolol tartrate 50 mg Tablet 50 mg PO BID Qty: 60 RF: 0 apixaban 5 mg tablet 2.5 mg PO BID 28 Days Qty: 56 RF: 0 Discharge Orders: Discharge Order (Routine); Ordered 01/10/21 Ordered By: Bird Hennessy Admission Data Admit Date/Time: 01/07/21 15:37 Attending Provider: Bird Hennessy Admit Provider: Bird Hennessy Primary Care Provider: Mark Maldonado Other Providers: Bird Hennessy ; Ulices Kaur Other Interventions: Discharge Summary Assessment (RN) Last Done: 01/10/21 11:38
== END 2021-01-10 12:24 | disposition home health service (06) | DRG 310 ==
LOC: ED 13:03 → 2S 15:37